=== PATIENT | male | born 1935 | race Caucasian/White ===

== ENCOUNTER 2016-10-01 10:34 | Outpatient (CLI) | payer MEDICARE, OTHER | END 2016-10-01 10:35 | disposition home or self-care (01) | DX: I10 Essential (primary) hypertension (principal) ==

== ENCOUNTER 2018-08-31 11:03 | Outpatient (CLI) | payer MEDICARE, OTHER | END 2018-08-31 11:04 | disposition home or self-care (01) | LOC: DI 11:03 | PROVIDERS: ATTEND Family Medicine | DX: R06.00 Dyspnea, unspecified (principal); I77.810 Thoracic aortic ectasia; R09.02 Hypoxemia; I10 Essential (primary) hypertension | CPT/HCPCS: 93306 ==

== ENCOUNTER 2018-10-07 10:43 | Outpatient (CLI) | payer MEDICARE, OTHER ==
--- NOTE | 2018-10-07 13:38 | XRAY Report ---
Reason: PULMONARY EMPHYSEMA,UNSPECIFIED EMPHYSEMA TYPE Procedure Date: 10/07/2018 Accession Number: [id number] / [id number] Procedure: XRN - Chest 2 View X-Ray CPT Code: 11785 FULL RESULT: EXAM: CHEST RADIOGRAPHY EXAM DATE: 10/07/2018 10:59 AM. CLINICAL HISTORY: PULMONARY EMPHYSEMA,UNSPECIFIED EMPHYSEMA TYPE. COMPARISON: None. TECHNIQUE: 2 views. FINDINGS: Lungs/Pleura: There is flattening of the hemidiaphragms. Lung volumes appear large. No discrete hyper lucent or cystic pulmonary lesions identified on chest radiograph. No definite pleural effusion. No focal consolidation. Mediastinum: Heart and mediastinal contours are unremarkable. Other: None. IMPRESSION: 1. Generalized pulmonary hyperinflation without focal airspace disease. RADIA
== END 2018-10-07 10:44 | disposition home or self-care (01) ==
LOC: DI.N 10:43
PROVIDERS: ATTEND Specialist
DX: J43.9 Emphysema, unspecified (principal)
CPT/HCPCS: 71046

== ENCOUNTER 2019-01-13 08:07 | Outpatient (CLI) | payer MEDICARE, OTHER ==
[2019-01-13 13:12] LABS: BASOPHILS # (AUTO) 0.1 10^3/uL (0.0-0.1); BASOPHILS % (AUTO) 1.1 %; EOSINOPHILS # (AUTO) 0.4 10^3/uL (0.0-0.7); EOSINOPHILS % (AUTO) 4.7 %; HGB - HEMOGLOBIN 15.3 g/dL (14.0-18.0); LYMPHOCYTES # (AUTO) 1.2 10^3/uL (1.5-3.5); MEAN CORPUSCULAR HEMOGLOBIN 32.4 pg (27.0-31.0); MEAN CORPUSCULAR HGB CONC 32.7 g/dL (32.0-36.0); MEAN CORPUSCULAR VOLUME 99.2 fL (80.0-94.0); MEAN PLATELET VOLUME 8.5 fL (7.4-11.4); MONOCYTES # (AUTO) 0.7 10^3/uL (0.0-1.0); MONOCYTES % (AUTO) 8.8 %; NEUTROPHILS # (AUTO) 5.3 10^3/uL (1.5-6.6); NEUTROPHILS % (AUTO) 69.4 %; PLT - PLATELET COUNT 252 10^3/uL (130-450); RED BLOOD COUNT 4.71 10^6/uL (4.70-6.10); WHITE BLOOD COUNT 7.6 x10^3/uL (4.8-10.8)
[2019-01-13 13:13] LABS: ALBUMIN 3.8 g/dL (3.2-5.5); ALBUMIN/GLOBULIN RATIO 1.3 (1.0-2.2); ALKALINE PHOSPHATASE 125 IU/L (42-121); ALT ALANINE AMINOTRANSFERASE 27 IU/L (10-60); AST ASPARTATE AMINOTRANSFERASE 31 IU/L (10-42); BILIRUBIN,TOTAL 0.9 mg/dL (0.2-1.0); BUN - BLOOD UREA NITROGEN 13 mg/dL (6-20); CALCIUM 9.1 mg/dL (8.5-10.3); CARBON DIOXIDE - CO2 29 mmol/L (21-32); CHLORIDE 100 mmol/L (101-111); CHOLESTEROL 164 mg/dL; CREATININE 0.7 mg/dL (0.6-1.2); GFR - MDRD 108 (>89); GLUCOSE 117 mg/dL (70-100); HB2 TOTAL 16.6 g/dL; HDL CHOLESTEROL 83 mg/dL; HEMOGLOBIN A1C 0.6 g/dL; HEMOGLOBIN A1C % 5.5 % (4.6-6.2); LDL CHOLESTEROL,CALCULATED 71 mg/dL; LDL/HDL RATIO 0.9 (<3.6); SODIUM 137 mmol/L (135-145); TOTAL PROTEIN 6.7 g/dL (6.7-8.2); URIC ACID 5.3 mg/dL (2.6-7.2); VLDL CHOLESTEROL 10 mg/dL
== END 2019-01-13 08:08 | disposition home or self-care (01) ==
LOC: LAB.WCP 08:07
PROVIDERS: ATTEND Family Medicine
DX: I10 Essential (primary) hypertension (principal); E66.9 Obesity, unspecified; F41.9 Anxiety disorder, unspecified; M10.9 Gout, unspecified; Z86.73 Personal history of transient ischemic attack (TIA), and cerebral infarction without residual deficits
CPT/HCPCS: 36415; 80053; 80061; 83036; 83721; 84443; 84550; 85025

== ENCOUNTER 2019-08-10 07:00 | Outpatient (CLI) | payer MEDICARE, OTHER ==
[2019-08-10 13:09] LABS: BASOPHILS # (AUTO) 0.1 10^3/uL (0.0-0.1); BASOPHILS % (AUTO) 1.2 %; EOSINOPHILS # (AUTO) 0.4 10^3/uL (0.0-0.7); EOSINOPHILS % (AUTO) 5.4 %; HGB - HEMOGLOBIN 15.3 g/dL (14.0-18.0); LYMPHOCYTES # (AUTO) 1.2 10^3/uL (1.5-3.5); LYMPHOCYTES % (AUTO) 14.8 %; MEAN CORPUSCULAR HEMOGLOBIN 32.1 pg (27.0-31.0); MEAN CORPUSCULAR HGB CONC 31.9 g/dL (32.0-36.0); MEAN CORPUSCULAR VOLUME 100.4 fL (80.0-94.0); MEAN PLATELET VOLUME 10.2 fL (7.4-11.4); MONOCYTES # (AUTO) 0.6 10^3/uL (0.0-1.0); MONOCYTES % (AUTO) 7.9 %; NEUTROPHILS # (AUTO) 5.6 10^3/uL (1.5-6.6); NEUTROPHILS % (AUTO) 70.2 %; PLT - PLATELET COUNT 241 10^3/uL (130-450); RED BLOOD COUNT 4.77 10^6/uL (4.70-6.10); RED CELL DISTRIBUTION WIDTH 13.9 % (12.0-15.0)
[2019-08-10 16:15] LABS: ALBUMIN/GLOBULIN RATIO 1.3 (1.0-2.2); CALCIUM 9.2 mg/dL (8.5-10.3); CREATININE 0.9 mg/dL (0.6-1.2)
[2019-08-10 17:30] LABS: HB2 TOTAL 15.6 g/dL; HEMOGLOBIN A1C 0.6 g/dL; HEMOGLOBIN A1C % 5.7 % (4.6-6.2)
== END 2019-08-10 23:59 | disposition home or self-care (01) ==
LOC: LAB.WCP 07:00
PROVIDERS: ATTEND Family Medicine
DX: I10 Essential (primary) hypertension (principal); Z86.39 Personal history of other endocrine, nutritional and metabolic disease; E66.9 Obesity, unspecified; F41.9 Anxiety disorder, unspecified
CPT/HCPCS: 36415; 80053; 83036; 84443; 85025

== ENCOUNTER 2020-11-06 08:00 | Outpatient (CLI) | payer MEDICARE, OTHER ==
[2020-11-06 12:09] LABS: ALBUMIN 3.5 g/dL (3.2-5.5); ALBUMIN/GLOBULIN RATIO 0.9 (1.0-2.2); ALKALINE PHOSPHATASE 128 IU/L (42-121); ALT ALANINE AMINOTRANSFERASE 26 IU/L (10-60); AST ASPARTATE AMINOTRANSFERASE 26 IU/L (10-42); BILIRUBIN,TOTAL 0.9 mg/dL (0.2-1.0); BUN - BLOOD UREA NITROGEN 18 mg/dL (6-20); CALCIUM 9.7 mg/dL (8.5-10.3); CARBON DIOXIDE - CO2 30 mmol/L (21-32); CHLORIDE 98 mmol/L (101-111); CHOL/HDL RATIO 2.7 (<5.0); CHOLESTEROL 162 mg/dL; CREATININE 0.9 mg/dL (0.6-1.2); GLUCOSE 112 mg/dL (70-100); HDL CHOLESTEROL 61 mg/dL; LDL CHOLESTEROL,CALCULATED 89 mg/dL; LDL/HDL RATIO 1.5 (<3.6); TOTAL PROTEIN 7.2 g/dL (6.7-8.2); VLDL CHOLESTEROL 12 mg/dL
[2020-11-06 12:28] LABS: BASOPHILS # (AUTO) 0.1 10^3/uL (0.0-0.1); BASOPHILS % (AUTO) 1.4 %; EOSINOPHILS # (AUTO) 0.3 10^3/uL (0.0-0.7); EOSINOPHILS % (AUTO) 3.8 %; LYMPHOCYTES # (AUTO) 1.3 10^3/uL (1.5-3.5); LYMPHOCYTES % (AUTO) 14.7 %; MEAN CORPUSCULAR HEMOGLOBIN 31.5 pg (27.0-31.0); MEAN CORPUSCULAR HGB CONC 31.8 g/dL (32.0-36.0); MEAN CORPUSCULAR VOLUME 98.9 fL (80.0-94.0); MEAN PLATELET VOLUME 9.6 fL (7.4-11.4); MONOCYTES # (AUTO) 0.7 10^3/uL (0.0-1.0); MONOCYTES % (AUTO) 8.1 %; NEUTROPHILS # (AUTO) 6.2 10^3/uL (1.5-6.6); NEUTROPHILS % (AUTO) 71.1 %; PLT - PLATELET COUNT 422 10^3/uL (130-450); RED BLOOD COUNT 4.76 10^6/uL (4.70-6.10); RED CELL DISTRIBUTION WIDTH 13.6 % (12.0-15.0); WHITE BLOOD COUNT 8.8 x10^3/uL (4.8-10.8)
== END 2020-11-06 23:59 | disposition home or self-care (01) ==
LOC: LAB.WCP 08:00
PROVIDERS: ATTEND Internal Medicine
DX: E66.9 Obesity, unspecified (principal); F41.9 Anxiety disorder, unspecified; R09.02 Hypoxemia; Z86.39 Personal history of other endocrine, nutritional and metabolic disease
CPT/HCPCS: 36415; 80053; 80061; 83721; 84443; 85025

== ENCOUNTER 2020-12-27 10:03 | Outpatient (CLI) | payer MEDICARE, OTHER ==
--- NOTE | 2020-12-27 11:07 | Ultrasound Report ---
PROCEDURE: Aorta Screening INDICATIONS: HIST OF SMOKING TECHNIQUE: Real time scanning was performed of the aorta and iliac arteries, with image documentatio n. COMPARISON: No imaging studies of the aorta are available. FINDINGS: Aorta: Proximal aortic diameter measures 2.9 x 2.9 cm. Mid-aorta measures 2.5 x 2.6 cm. Distal aor tic diameter is 5.9 x 6.2 cm. Distal abdominal aortic aneurysm margin is irregular and demonstrates turbulent flow. It extends for length of about 8.4 cm. No definite mural thrombus. Iliac arteries: Right common iliac artery measures 1.5 x 1.3 cm. Left common iliac artery measures 1.6 x 1.4 cm. Incidental note made of large left lower pole simple renal cyst measuring up to 14.2. IMPRESSION: 1. Large fusiform distal abdominal aortic aneurysm to the level of the bifurcation. No definite mural thrombus. Further evaluation with CTA or MRA imaging, and vascular surgery consultation is recommend ed. Reviewed by: Chanda Gabriel MD on 12/27/2020 10:05 AM MYRIAM Approved by: Chanda Gabriel MD on 12/27/2020 10:05 AM MYRIAM Station ID: [id number]
== END 2020-12-27 10:04 | disposition home or self-care (01) ==
LOC: DI 10:03
PROVIDERS: ATTEND Internal Medicine
DX: Z13.6 Encounter for screening for cardiovascular disorders (principal); I71.4 Abdominal aortic aneurysm, without rupture; Z87.891 Personal history of nicotine dependence

== ENCOUNTER 2021-01-04 13:57 | Outpatient (CLI) | payer MEDICARE, OTHER ==
[2021-01-04] MEDS ORDERED: IOPAMIDOL-300 100 ML VIAL ONE (14:23)
[2021-01-04 14:53] LABS: CALCIUM 9.2 mg/dL (8.5-10.3); CREATININE 0.9 mg/dL (0.6-1.2); POTASSIUM 3.7 mmol/L (3.5-5.0)
[2021-01-04] MEDS ORDERED: IOPAMIDOL-300 100 ML VIAL IVP ONE (17:13)
--- NOTE | 2021-01-05 00:05 | CT Report ---
PROCEDURE: ANGIO ABD RUNOFF W/WO - B/L INDICATIONS: AAA CONTRAST: IV CONTRAST: Isovue 300 ml: 125 PO CONTRAST: *NO PO CONTRAST TECHNIQUE: After the administration of intravenous contrast, 2 and 5 mm sections acquired from T12 to the feet, with optional delayed image acquisition from the knees to the feet. 3-dimensional maximum intensity projection (MIP) coronal and sagittal reformats, and/or 3-dimensional volume rendering reformatting w as then performed. For radiation dose reduction, the following was used: automated exposure control , adjustment of mA and/or kV according to patient size. COMPARISON: Abdominal ultrasound 12/27/2020. FINDINGS: Image quality: Excellent. Extravascular tissues: Lung bases are clear. Calcified right hilar lymph nodes. Heart size is promin ent. Liver and spleen are normal in size. Possible hepatic steatosis. Punctate calcification in the left l obe liver. Gallbladder is unremarkable. Biliary system is non dilated. Pancreas enhances normally. Left adrenal nodule measuring 1.9 cm. Exophytic lobular right mid kidney lesion measuring of 4.8 x 2 .8 cm, (/39). This lesion appears solid. Large inferior pole left renal cyst measuring 13.8 cm. This measures approximately 30 Hounsfield units. Additional renal cysts bilaterally. Non opacified bowel loops demonstrate normal wall thickness and enhancement. No free fluid or air. No retroperitoneal or mesenteric adenopathy. No ventral hernias. Bladder wall thickness is normal. Hydrocele. Fat-containing left inguinal hernia. No adenopathy. No suspicious bony lesions. Lumbar spine DDD. No vertebral body compression fractures. Abdominal aorta: Infrarenal abdominal aortic fusiform aneurysm measuring 5.9 cm transverse, (12/42) and 5.7 cm AP, (13/66). Moderate calcified plaque in the abdominal aorta and circumferential plaque i n the iliac arteries. No iliac artery aneurysm. No dissection. Proximal SMA athetotic plaque. Promine nt plaque in the proximal renal arteries. Right lower extremity: Mild stenosis in the EMAIL MARKETING SPECIALIST. Profunda is patent. Severe stenosis in the distal S FA. Severe stenosis in the popliteal artery. Severe stenosis at the tibioperitoneal trunk. Peroneal a rtery is attenuated. There appears to be runoff in the NIMA and ROOF PANEL HANGER. Subcutaneous edema about the righ t knee and thigh. Left lower extremity: Mild stenosis in the EMAIL MARKETING SPECIALIST. Profunda is patent. Moderate stenosis in the mid SFA . Severe stenosis in the distal SFA. Severe stenosis in the popliteal artery. Severe stenosis in the NIMA. Paranasal artery is attenuated. There appears to be runoff in the NIMA and ROOF PANEL HANGER. IMPRESSION: 1. Infrarenal AAA measuring 5.9 cm. -Interventional radiology or vascular surgery consultation is recommended. 2. Advanced peripheral arterial disease with multiple areas of severe stenosis. Asymmetric soft tissu e swelling in the right thigh and knee. Clinical significance of this finding is uncertain. 3. Suspect solid right renal mass measuring 4.8 cm. This could represent renal cell carcinoma. Additi onal indeterminate renal cystic lesions. -Recommend further characterization with MRI renal protocol or CT. 4. Small indeterminate left adrenal nodule. Reviewed by: Waldo Ramirez MD on 01/05/2021 12:03 AM PDT Approved by: Waldo Ramirez MD on 01/05/2021 12:03 AM PDT Station ID: [id number]
== END 2021-01-04 13:58 | disposition home or self-care (01) ==
LOC: LAB 13:57 → DI 13:58
PROVIDERS: ATTEND Internal Medicine
DX: I71.4 Abdominal aortic aneurysm, without rupture (principal); I73.9 Peripheral vascular disease, unspecified; E27.9 Disorder of adrenal gland, unspecified
CPT/HCPCS: 36415; 75635; 80048; Q9967

== ENCOUNTER 2021-03-08 07:38 | Outpatient (CLI) | payer MEDICARE, OTHER | END 2021-03-08 07:39 | disposition home or self-care (01) | LOC: DI 07:38 | PROVIDERS: ATTEND Surgery Vascular Surgery | DX: I71.4 Abdominal aortic aneurysm, without rupture (principal); I48.91 Unspecified atrial fibrillation; I87.8 Other specified disorders of veins; I11.9 Hypertensive heart disease without heart failure | CPT/HCPCS: 93306 ==

== ENCOUNTER 2021-09-19 00:05 | Inpatient (IN) | payer MEDICARE, OTHER ==
[2021-09-19] MEDS ORDERED: ALBUTEROL NEB 2.5 MG/3 ML INH STA (00:12)
[2021-09-19] MEDS ORDERED: ACETAMINOPHEN 325 MG TABLET PO STA (00:13)
[2021-09-19] MEDS ORDERED: CEFEPIME 2 GM in SODIUM CHLORIDE 0.9% MINIBAG 100 ML IV STA (00:13)
[2021-09-19] MEDS ORDERED: VANCOMYCIN INJ 1.25 GM in SODIUM CHLORIDE 0.9% 250 ML IV STA (00:13)
[2021-09-19] MEDS ORDERED: ALBUTEROL NEB 2.5 MG/3 ML INH ONE (00:20)
--- NOTE | 2021-09-19 00:22 | ED Physician Documentation ---
History of Present Illness - Stated complaint Stated Complaint: DIFF BREATHING - Chief complaint Chief Complaint: Resp - History obtained from History obtained from: Patient, EMS - Additonal information Additional information: 86yM with pmh copd, dnr/dni, asymptomatic AAA, +smoker, p/w SOA, fever/chills, and weakness over past few days with acute worsening soa today prompting ems call. patient took 2 albuterol treatments at home without relief. On EMS arrival: Hypoxic to 70s on RA in the field, improving to high 90s on NRB. 2 duonebs en route. No recent hospitalizations. denies CP, nausea, diaphoresis, diarrhea, abd pain. +productive cough. no hemoptysis Review of Systems Ten Systems: 10 systems reviewed and negative Constitutional: reports: Fever, Chills, Myalgias, Fatigue Cardiac: denies: Chest pain / pressure Respiratory: reports: Dyspnea, Cough GI: denies: Abdominal Pain, Nausea, Vomiting, Diarrhea : denies: Dysuria Skin: denies: Rash PD PAST MEDICAL HISTORY - Past Medical History Respiratory: COPD Neuro: CVA - Present Medications Home Medications: Ambulatory Orders Medication Instructions Recorded Confirmed Albuterol 2.5 mg INH Q4H PRN 12/28/20 09/19/21 Alfuzosin HCl [Uroxatral] 10 mg PO DAILY 12/28/20 09/19/21 Lisinopril [Zestril] 20 mg PO BID 12/28/20 09/19/21 Meloxicam [Mobic] 15 mg PO DAILY 12/28/20 09/19/21 Mometasone/Formoterol [Dulera 100 4 puffs IH DAILY 12/28/20 09/19/21 Mcg-5 Mcg Inhaler] [place]-3/Dha/Epa/Fish Oil [Fish Oil 1 cap PO DAILY 12/28/20 09/19/21 1,000 mg Softgel] Sennosides/Docusate Sodium [Stool 250 mg PO BID 12/28/20 09/19/21 Softener-Laxative Tablet] Tiotropium [place] [Spiriva] 1 cap PO DAILY 12/28/20 09/19/21 allopurinoL [Zyloprim] 300 mg PO DAILY 12/28/20 09/19/21 cloNIDine [Catapres] 0.1 mg PO BID 12/28/20 09/19/21 - Allergies Allergies/Adverse Reactions: Allergies Allergy/AdvReac Type Severity Reaction Status Date / Time Penicillins Allergy Unknown Verified 09/19/21 00:15 shellfish derived Allergy Unknown Verified 09/19/21 00:15 PD ED PE NORMAL - Vitals Vital signs reviewed: Yes - General General: Alert and oriented X 3, Other (mild respiratory distress. elderly appearing) - HEENT HEENT: Atraumatic, PERRL, EOMI, Moist mucous membranes, Pharynx benign - Neck Neck: Supple, no meningeal sign - Cardiac Cardiac: Other (tachycardic rate, irregular rhythm) - Respiratory Respiratory: Other (BL coarse breath sounds. L basilar rhonchi and crackles) - Abdomen Abdomen: Non tender, Other (distended abdomen) - Derm Derm: Normal color, Warm and dry - Extremities Extremities: No deformity - Neuro Neuro: No motor deficit, No sensory deficit - Psych Psych: Normal mood, Normal affect Results - Vitals Vitals: Vital Signs - 24 hr 09/19/21 09/19/21 00:06 00:20 Temperature 38.2 C H Heart Rate 108 H 106 H Respiratory 20 28 H Rate Blood Pressure 135/71 H O2 Saturation 97 Oxygen O2 Source Non-rebreather mask Oxygen Flow Rate 15 - EKG (time done) 0018 Rate: Rate (enter#) (113) Rhythm: Other (irregular rhythm, multiple p waves with varying morphologies c/w MAT) QRS: Normal Ischemia: Normal ST segments - Labs Labs: Laboratory Tests 09/19/21 09/19/21 09/19/21 00:32 00:32 00:32 WBC 15.2 H RBC 4.63 L Hgb 14.9 Hct 46.0 MCV 99.4 H MCH 32.2 H MCHC 32.4 RDW 14.6 Plt Count 217 MPV 10.4 Neut # (Auto) 12.9 H Lymph # (Auto) 0.7 L Rabun # (Auto) 1.5 H Eos # (Auto) 0.0 Baso # (Auto) 0.1 Absolute Nucleated RBC 0.00 Nucleated RBC % 0.0 VBG pH 7.341 VBG pCO2 53.7 H VBG pO2 43.5 VBG HCO3 28.4 H VBG Total CO2 30.0 H VBG O2 Saturation 77.1 VBG Base Excess 1.4 Sodium 136 Potassium 3.9 Chloride 97 L Carbon Dioxide 29 Anion Gap 10.0 BUN 23 H Creatinine 0.9 Estimated GFR (MDRD) 80 L Glucose 147 H Lactic Acid Calcium 8.8 Total Bilirubin 1.1 H AST 32 ALT 44 Alkaline Phosphatase 104 Total Protein 6.8 Albumin 3.7 Globulin 3.1 Albumin/Globulin Ratio 1.2 Lipase 19 L 09/19/21 00:32 WBC RBC Hgb Hct MCV MCH MCHC RDW Plt Count MPV Neut # (Auto) Lymph # (Auto) Rabun # (Auto) Eos # (Auto) Baso # (Auto) Absolute Nucleated RBC Nucleated RBC % VBG pH VBG pCO2 VBG pO2 VBG HCO3 VBG Total CO2 VBG O2 Saturation VBG Base Excess Sodium Potassium Chloride Carbon Dioxide Anion Gap BUN Creatinine Estimated GFR (MDRD) Glucose Lactic Acid 1.0 Calcium Total Bilirubin AST ALT Alkaline Phosphatase Total Protein Albumin Globulin Albumin/Globulin Ratio Lipase PD MEDICAL DECISION MAKING - ED course ED course: 86yM presents to ED with sepsis 2/2 L sided pneumonia. no recent hospitalization therefore will treat empirically for CAP. EKG irregular, suspect MAT. family reports no formal diagnosis of afib or cardiac arrhythmia in the past. On monitor, patient has p waves with multiple morphologies and irregular rhythm c/w MAT. 1am - Patient with o2 sat 94% on 10L o2. BL wheezing improved s/p 3 nebulizer treatments. still with some mild tachycardia. patient states his SOA is subjectively improved.
[2021-09-19] MEDS ORDERED: AZITHROMYCIN INJ 500 MG in SODIUM CHLORIDE 0.9% 250 ML IV STA (00:24)
[2021-09-19] MEDS ORDERED: SODIUM CHLORIDE 0.9% 1,000 ML IV STA (00:24)
[2021-09-19] MEDS ORDERED: cefTRIAXone 1 GM in SODIUM CHLORIDE 0.9% MINIBAG 100 ML IV STA (00:24)
[2021-09-19] MEDS ORDERED: SODIUM CHLORIDE 0.9% 500 ML IV STA (00:34)
[2021-09-19] MEDS ORDERED: cefTRIAXone 1 GM VIAL ONE (00:35)
[2021-09-19 00:45] LABS: BASOPHILS # (AUTO) 0.1 10^3/uL (0.0-0.1); BASOPHILS % (AUTO) 0.5 %; EOSINOPHILS % (AUTO) 0.1 %; HGB - HEMOGLOBIN 14.9 g/dL (14.0-18.0); LYMPHOCYTES # (AUTO) 0.7 10^3/uL (1.5-3.5); LYMPHOCYTES % (AUTO) 4.6 %; MEAN CORPUSCULAR HEMOGLOBIN 32.2 pg (27.0-31.0); MEAN CORPUSCULAR HGB CONC 32.4 g/dL (32.0-36.0); MEAN CORPUSCULAR VOLUME 99.4 fL (80.0-94.0); MEAN PLATELET VOLUME 10.4 fL (7.4-11.4); MONOCYTES # (AUTO) 1.5 10^3/uL (0.0-1.0); MONOCYTES % (AUTO) 9.8 %; NEUTROPHILS # (AUTO) 12.9 10^3/uL (1.5-6.6); NEUTROPHILS % (AUTO) 84.5 %; PLT - PLATELET COUNT 217 10^3/uL (130-450); RED BLOOD COUNT 4.63 10^6/uL (4.70-6.10); RED CELL DISTRIBUTION WIDTH 14.6 % (12.0-15.0); WHITE BLOOD COUNT 15.2 x10^3/uL (4.8-10.8)
[2021-09-19 00:46] LABS: VBG BASE EXCESS 1.4 mmol/L (-2 - +2); VBG HCO3 28.4 mmol/L (23-28); VBG OXYGEN SATURATION 77.1 % (60-80); VBG PCO2 53.7 mmHg (41-51); VBG PH 7.341 (7.31-7.41); VBG PO2 43.5 mmHg (25-47)
--- NOTE | 2021-09-19 00:51 | XRAY Report ---
PROCEDURE: Chest 1 View X-Ray INDICATIONS: Chest Pain TECHNIQUE: One view of the chest was acquired. COMPARISON: Chest x-ray 10/07/2018 FINDINGS: Surgical changes and devices: None. Lungs and pleura: There is blunting of the costophrenic angles bilaterally, left greater than right. Left lung base demonstrates areas of increased opacity. Mediastinum: Mediastinal contours appear normal. Heart size is normal. Bones and chest wall: No suspicious bony lesions. Overlying soft tissues appear unremarkable. IMPRESSION: Costophrenic angle blunting, left greater than right suggestive of trace effusions most notable on th e left. Areas of increased opacity are noted within the left base which can represent dependent fluid versus developing pneumonia and/or atelectasis. Reviewed by: Yuly Lopez MD on 09/19/2021 12:50 AM PST Approved by: Yuly Lopez MD on 09/19/2021 12:50 AM PST Station ID: [id number]
[2021-09-19 00:57] LABS: ALBUMIN 3.7 g/dL (3.2-5.5); ALBUMIN/GLOBULIN RATIO 1.2 (1.0-2.2); BILIRUBIN,TOTAL 1.1 mg/dL (0.2-1.0); CALCIUM 8.8 mg/dL (8.5-10.3); CREATININE 0.9 mg/dL (0.6-1.2); POTASSIUM 3.9 mmol/L (3.5-5.0); TOTAL PROTEIN 6.8 g/dL (6.7-8.2)
[2021-09-19] MEDS ORDERED: methylPREDNISolone SUCCINATE 125 MG/2 ML VIAL IVP STA (01:06)
[2021-09-19 01:45] LABS: B. PARAPERTUSSIS- RESP PCR PAN NOT DETECTED; B. PERTUSSIS- RESP PCR PANEL NOT DETECTED; C. PNEUMONIAE- RESP PCR PANEL NOT DETECTED; CORONAVIRUS 229E-RESP PCR NOT DETECTED; CORONAVIRUS HKU1-RESP PCR NOT DETECTED; CORONAVIRUS NL63-RESP PCR NOT DETECTED; CORONAVIRUS OC43-RESP PCR NOT DETECTED; HUMAN METAPNEUMOVIRUS NOT DETECTED; INFLUENZA A- RESP PCR PANEL NOT DETECTED; INFLUENZA B - RESP PCR PANEL NOT DETECTED; M. PNEUMONIAE- RESP PCR PANEL NOT DETECTED; PARAINFLUENZA VIRUS 1 NOT DETECTED; PARAINFLUENZA VIRUS 2 NOT DETECTED; PARAINFLUENZA VIRUS 3 DETECTED; PARAINFLUENZA VIRUS 4 NOT DETECTED; RHINOVIRUS/ENTEROVIRUS NOT DETECTED; RSV- RESP PCR PANEL NOT DETECTED; SARS-CoV-2 -RESP PCR PANEL NOT DETECTED
[2021-09-19] MEDS ORDERED: oxyCODONE 5 MG TABLET PO PRN ×2 (01:54→02:39)
[2021-09-19] MEDS ORDERED: MORPHINE 2 MG/ML CARPUJECT IVP PRN ×4 (01:54→09:07)
[2021-09-19] MEDS ORDERED: ONDANSETRON 4 MG/2 ML VIAL IVP PRN ×2 (01:54→02:39)
[2021-09-19] MEDS ORDERED: SODIUM CHLORIDE FLUSH 0.9% 10 ML SYRINGE IVP PRN (01:54)
[2021-09-19] MEDS ORDERED: ACETAMINOPHEN 325 MG TABLET PO PRN ×3 (01:54→09:06)
[2021-09-19] MEDS ORDERED: methylPREDNISolone SUCCINATE 40 MG/ML VIAL IVP SCH (02:00)
[2021-09-19] MEDS ORDERED: IPRATROPIUM/ALBUTEROL 3 ML NEB INH PRN (02:03)
--- NOTE | 2021-09-19 02:05 | HISTORY & PHYSICAL EXAMINATION ---
Chief Complaint - Chief Complaint Chief Complaint: dyspnea, hypoxia, productive cough History of Present Illness - Admitted From Admitted From:: [facility] ED - History Obtained From Records Reviewed: yes History obtained from: patient - History of Present Illness HPI Comment/Other: Patient is an 86-year-old male with history significant for arthritis, AAA, BPH, gout, hypertension and COPD who presented to the ED with difficulty in breathing. His symptoms have been going on intermittently for the past month. Today he was unable to walk from the living room to the bathroom and back. As a result of his significant dyspnea he is daughter called EMS. Upon arrival his oxygen saturation was noted to be in the 70s on room air. He does not use oxygen at home. He also had a productive cough. In the ED he was noted to be tachypneic with respiratory rate in the 30s. He had a fever of 38.2 C. His white blood cell count was 15.2. PCO2 on VBG was 53. Chest x-ray showed costophrenic blunting and opacities concerning for pulmonary edema and/or pneumonia. As a result of this findings he was presented for admission for further management At bedside he denied chest pain but reported abdominal pain/heartburn. He denied nausea or vomiting. He appears very disheveled with 3+ lower extremity edema and a protuberant abdomen. History - Past Medical History Respiratory: reports: COPD Neuro: reports: CVA : reports: Benign prostate hypertrophy Musculoskeletal: reports: Osteoarthritis, Gout - Past Surgical History General: reports: Other (Umbilical and inguinal hernia repair pain) Ortho: reports: Other (Left knee scope) /CAD APPLICATION SUPPORT SPECIALIST: reports: Other (Vasectomy) - Family & Social History Family History Comment/Other: Patient denies any significant family history Social History Notes: He lives at home with his daughter. He has been smoking cigarettes since the age of 19. He is currently down to 5 cigarettes daily. He consumes alcohol regularly. Mostly beer. He denies any recreational substance use. He gets around using a walker. - POLST Patient has POLST: No POLST Status: DNR Meds/Allgy - Home Medications Home Medications: Ambulatory Orders Medication Instructions Recorded Confirmed Albuterol 2.5 mg INH Q4H PRN 12/28/20 09/19/21 Alfuzosin HCl [Uroxatral] 10 mg PO DAILY 12/28/20 09/19/21 Lisinopril [Zestril] 20 mg PO BID 12/28/20 09/19/21 Meloxicam [Mobic] 15 mg PO DAILY 12/28/20 09/19/21 Mometasone/Formoterol [Dulera 100 4 puffs IH DAILY 12/28/20 09/19/21 Mcg-5 Mcg Inhaler] [place]-3/Dha/Epa/Fish Oil [Fish Oil 1 cap PO DAILY 12/28/20 09/19/21 1,000 mg Softgel] Sennosides/Docusate Sodium [Stool 250 mg PO BID 12/28/20 09/19/21 Softener-Laxative Tablet] Tiotropium [place] [Spiriva] 1 cap PO DAILY 12/28/20 09/19/21 allopurinoL [Zyloprim] 300 mg PO DAILY 12/28/20 09/19/21 cloNIDine [Catapres] 0.1 mg PO BID 12/28/20 09/19/21 - Allergies Allergies/Adverse Reactions: Allergies Allergy/AdvReac Type Severity Reaction Status Date / Time Penicillins Allergy Unknown Verified 09/19/21 00:15 shellfish derived Allergy Unknown Verified 09/19/21 00:15 Review of Systems - Constitutional Constitutional: reports: Fever. denies: Fatigue - Eyes Eyes: denies: Pain, Dipolpia - Ears, Nose & Throat Ears, Nose & Throat: denies: Ear pain, Sore throat - Cardiovascular Cariovascular: reports: Palpitations, Exertional dyspnea. denies: Chest pain, Lightheadedness, Syncope - Respiratory Respiratory: reports: Cough, Sputum production, Wheezing, SOB at rest, SOB with exertion - Gastrointestinal Gastrointestinal: reports: Abdominal distention, Reflux/heartburn. denies: Abdominal pain, Constipation, Nausea, Vomiting - Genitourinary Genitourinary: denies: Dysuria, Frequency, Urgency - Musculoskeletal Musculoskeletal: denies: Muscle pain, Back pain - Integumentary Integumentary: reports: Other (Multiple skin tags noted on face. Face appears slightly ashen) - Neurological Neurological: denies: General weakness, Focal weakness, Headache - Psychiatric Psychiatric: denies: Depression, Anxiety - Endocrine Endocrine: denies: Polyuria, Polydypsia - Hematologic/Lymphatic Hematologic/Lymphatic: denies: Anemia, Bruising, Petechiae Prior Level of Functionality: Patient is independent of activities of daily living. He gets around using a walker. Exam - Vital Signs Vital Signs: Vital Signs x48h Temp Pulse Resp BP Pulse Ox 09/19/21 01:30 109 H 31 H 98/46 L 93 09/19/21 01:12 113 H 26 H 100/56 L 93 09/19/21 01:00 119 H 31 H 104/53 L 93 09/19/21 00:30 114 H 26 H 135/71 H 94 09/19/21 00:20 106 H 28 H 09/19/21 00:06 38.2 C H 108 H 20 135/71 H 97 - Physical Exam General Appearance: positive: Alert, Moderate distress (Respiratory distress), Other (Disheveled. Face appears ashen) Eyes Bilateral: positive: PERRL, EOMI ENT: positive: No signs of dehydration Neck: positive: No JVD, Trachea midline Respiratory: positive: Chest non-tender, Wheezes Cardiovascular: positive: Irregularly irregular, Tachycardia Abdomen: positive: Non-tender, Nml bowel sounds, Other (protuberant abdomen). negative: Guarding, Rebound Back: positive: Nml inspection Skin: positive: No rash, Warm, Other (Skin tags noted on face and neck. Face appears ashen). negative: Color nml Extremities: positive: Non-tender, Pedal edema (3+) Neurologic/Psychiatric: positive: Oriented x3, Motor nml, Mood/affect nml Conclusion/Plan - Problem List (1) COPD exacerbation Conclusion/Plan: Patient is currently on oxygen mask at 10 L. Overall he reports slight improvement in his breathing compared to prior to admission. If needed will switch patient to high flow nasal cannula or BiPAP. Budesonide and Perforomist twice daily. Solu-Medrol 80 mg IV 3 times daily. DuoNeb every 4 hours as needed. Patient was admitted to the ICU for closer monitoring. (2) Community acquired pneumonia Conclusion/Plan: White blood cell count was 15. Chest x-ray showed opacities. Temperature was 38.2 C Blood cultures drawn. Rocephin and azithromycin initiated. We will continue. Tylenol ordered every 4 hours as needed for fever. (3) AAA (abdominal aortic aneurysm) Conclusion/Plan: This was noted to be 5.9 x 6.2 cm on an ultrasound done in December 2020. This was ordered by the patient's primary physician Dr. Brent Posada. He was seen by vascular surgeon in the outpatient setting. He declined any intervention. (4) Hypertension Conclusion/Plan: He normally takes clonidine and lisinopril. However patient's systolic blood pressure currently is between 90 and low 100. As a result we will hold all antihypertensives including alfuzosin which he takes for BPH. (5) BPH (benign prostatic hyperplasia) Conclusion/Plan: Alfuzosin currently on hold. (6) Edema of both lower extremities Conclusion/Plan: Chronic. However appears significant currently. Patient has 3+ pitting edema. Chest x-ray also showed blunting of the costophrenic angles. BNP ordered. If significantly elevated will administer Lasix. However will exercise caution Due to soft blood pressures. - Lab Results Fish Bones: 09/19/21 04:21 09/19/21 04:21 Core Measures - Anticipated LOS I expect patient to be DC'd or transferred within 96 hours.: Yes - DVT/VTE - Prophylaxis VTE/DVT Device ordered at admit?: Yes VTE/DVT Prophylaxis med ordered at admit?: Yes
[2021-09-19] MEDS ORDERED: cefTRIAXone 1 GM in SODIUM CHLORIDE 0.9% MINIBAG 100 ML IV SCH (02:39)
[2021-09-19] MEDS: methylPREDNISolone SUCCINATE 40 MG/ML VIAL IVP SCH ×3 (02:57→18:18)
[2021-09-19 04:52] LABS: BASOPHILS # (AUTO) 0.1 10^3/uL (0.0-0.1); BASOPHILS % (AUTO) 0.5 %; EOSINOPHILS # (AUTO) 0.2 10^3/uL (0.0-0.7); HCT - HEMATOCRIT 44.6 % (42.0-52.0); HGB - HEMOGLOBIN 14.1 g/dL (14.0-18.0); LYMPHOCYTES # (AUTO) 0.3 10^3/uL (1.5-3.5); LYMPHOCYTES % (AUTO) 1.7 %; MEAN CORPUSCULAR HEMOGLOBIN 31.8 pg (27.0-31.0); MEAN CORPUSCULAR HGB CONC 31.6 g/dL (32.0-36.0); MEAN CORPUSCULAR VOLUME 100.5 fL (80.0-94.0); MEAN PLATELET VOLUME 10.6 fL (7.4-11.4); MONOCYTES # (AUTO) 0.7 10^3/uL (0.0-1.0); MONOCYTES % (AUTO) 4.4 %; NEUTROPHILS # (AUTO) 14.5 10^3/uL (1.5-6.6); NEUTROPHILS % (AUTO) 91.8 %; PLT - PLATELET COUNT 216 10^3/uL (130-450); RED BLOOD COUNT 4.44 10^6/uL (4.70-6.10); RED CELL DISTRIBUTION WIDTH 14.6 % (12.0-15.0); WHITE BLOOD COUNT 15.8 x10^3/uL (4.8-10.8)
[2021-09-19 04:59] LABS: CALCIUM 8.5 mg/dL (8.5-10.3); POTASSIUM 3.8 mmol/L (3.5-5.0)
[2021-09-19] MEDS: IPRATROPIUM/ALBUTEROL 3 ML NEB INH PRN ×2 (06:29→11:57)
[2021-09-19] MEDS: FORMOTEROL FUMARATE NEB 20 MCG/2 ML INH SCH ×2 (06:30→20:29)
[2021-09-19] MEDS: BUDESONIDE 0.5 MG/2 ML NEB INH SCH ×2 (06:30→20:29)
[2021-09-19] MEDS ORDERED: BUDESONIDE 0.5 MG/2 ML NEB INH SCH (07:00)
[2021-09-19] MEDS ORDERED: FORMOTEROL FUMARATE NEB 20 MCG/2 ML INH SCH (07:00)
[2021-09-19] MEDS ORDERED: INSULIN ASPART 300 UNIT/3 ML PEN SUBQ SCH (08:00)
[2021-09-19] MEDS ORDERED: POTASSIUM CHLORIDE 20 MEQ TABLET PO ONE (08:00)
[2021-09-19] MEDS: INSULIN ASPART 300 UNIT/3 ML PEN SUBQ SCH ×4 (08:35→20:56)
[2021-09-19] MEDS: SODIUM CHLORIDE FLUSH 0.9% 10 ML SYRINGE IVP SCH ×2 (08:55→17:16)
[2021-09-19] MEDS ORDERED: SODIUM CHLORIDE FLUSH 0.9% 10 ML SYRINGE IVP SCH (09:00)
[2021-09-19] MEDS: allopurinoL 100 MG TABLET PO SCH (10:53)
[2021-09-19] MEDS: lisinopriL 20 MG TABLET PO SCH ×2 (10:53→20:56)
[2021-09-19] MEDS: TAMSULOSIN 0.4 MG CAPSULE PO SCH (10:53)
[2021-09-19] MEDS: DOCUSATE SODIUM 250 MG CAPSULE PO SCH (10:55)
[2021-09-19] MEDS: polyethylene glycoL 3350 17 GM PACKET PO SCH (10:55)
[2021-09-19] MEDS: guaiFENesin 600 MG TABLET PO SCH ×2 (12:35→20:56)
[2021-09-19] MEDS: AZITHROMYCIN INJ 500 MG in SODIUM CHLORIDE 0.9% 250 ML IV SCH (21:33)
[2021-09-20] MEDS: methylPREDNISolone SUCCINATE 40 MG/ML VIAL IVP SCH ×2 (01:36→10:54)
[2021-09-20] MEDS: SODIUM CHLORIDE FLUSH 0.9% 10 ML SYRINGE IVP SCH ×3 (01:36→17:03)
[2021-09-20 05:29] LABS: BASOPHILS % (AUTO) 0.1 %; HGB - HEMOGLOBIN 14.2 g/dL (14.0-18.0); LYMPHOCYTES # (AUTO) 0.6 10^3/uL (1.5-3.5); LYMPHOCYTES % (AUTO) 3.7 %; MEAN CORPUSCULAR HEMOGLOBIN 32.2 pg (27.0-31.0); MEAN CORPUSCULAR HGB CONC 31.6 g/dL (32.0-36.0); MEAN PLATELET VOLUME 10.4 fL (7.4-11.4); MONOCYTES # (AUTO) 0.6 10^3/uL (0.0-1.0); MONOCYTES % (AUTO) 3.5 %; NEUTROPHILS # (AUTO) 14.9 10^3/uL (1.5-6.6); PLT - PLATELET COUNT 201 10^3/uL (130-450); RED BLOOD COUNT 4.41 10^6/uL (4.70-6.10); RED CELL DISTRIBUTION WIDTH 14.4 % (12.0-15.0); WHITE BLOOD COUNT 16.2 x10^3/uL (4.8-10.8)
[2021-09-20 05:35] LABS: CALCIUM 8.6 mg/dL (8.5-10.3); CREATININE 0.8 mg/dL (0.6-1.2); POTASSIUM 4.6 mmol/L (3.5-5.0)
[2021-09-20] MEDS: INSULIN ASPART 300 UNIT/3 ML PEN SUBQ SCH ×4 (07:52→21:06)
[2021-09-20] MEDS: BUDESONIDE 0.5 MG/2 ML NEB INH SCH ×2 (07:55→19:30)
[2021-09-20] MEDS: IPRATROPIUM/ALBUTEROL 3 ML NEB INH PRN ×2 (07:55→19:30)
[2021-09-20] MEDS: FORMOTEROL FUMARATE NEB 20 MCG/2 ML INH SCH ×2 (07:55→19:30)
[2021-09-20] MEDS: guaiFENesin 600 MG TABLET PO SCH ×2 (09:04→21:02)
[2021-09-20] MEDS: allopurinoL 100 MG TABLET PO SCH (09:04)
[2021-09-20] MEDS: polyethylene glycoL 3350 17 GM PACKET PO SCH (09:13)
[2021-09-20] MEDS: lisinopriL 20 MG TABLET PO SCH ×2 (09:13→21:02)
[2021-09-20] MEDS: DOCUSATE SODIUM 250 MG CAPSULE PO SCH (09:13)
[2021-09-20] MEDS: TAMSULOSIN 0.4 MG CAPSULE PO SCH (09:33)
[2021-09-20] MEDS: SENNA 8.6 MG TABLET PO SCH (09:33)
[2021-09-20] MEDS: SODIUM CHLORIDE FLUSH 0.9% 10 ML SYRINGE IVP PRN (10:56)
--- NOTE | 2021-09-20 11:41 | PROVIDER PROGRESS NOTE ---
Assessment/Plan - Problem List (1) Sepsis Assessment/Plan: Improved. pt has no more fever, blood culture is negative for bacteremia, blood pressure is stable now. pt had lower degree fever at the admission, elevated WBC, SOB with pneumonia. continue Azithromycin and Rocephin, Continue vital signs and cath laboratory technician, Continue high flow oxygen supplement as needed (2) Community acquired pneumonia pt is on high fluid of O2 supplement, pt had fever at the admission, he had elevated WBC, CXR reveal possible pneumonia, and small fluid at left lung. Head azithromycin and Rocephin, we will continue and 2 gram Rocephin, Continue supplement oxygen with high flow as needed (3) COPD exacerbation Patient has history of COPD, he is still smoker, We will continue solu-metro steroid, continue DuoNeb, albuterol, formoterol (4) AAA (abdominal aortic aneurysm) This was noted to be 5.9 x 6.2 cm on an ultrasound done in December 2020. This was ordered by the patient's primary physician Dr. Brent Posada. He was seen by vascular surgeon in the outpatient setting. He declined any intervention. (5) Hypertension Conclusion/Plan: stable, continue home meds, vital sign monitor (6) BPH (benign prostatic hyperplasia) continue Flomax (7) Edema of both lower extremities Conclusion/Plan: acute on Chronic, appears significant edema at both legs currently. Chest x-ray also showed blunting of the costophrenic angles with significant short of breath, now pt is on high flow of O2. ECHO study 6 months ago show 50- 55% EF, elevated RVSP 58mmHG with hx of COPD and custodial of smoker. BNP 200. start with lower dosage of Lasix, lab and vital monitor. - Current Meds Current Meds: Current Medications Generic Name Dose Route Start Last Admin Trade Name Freq PRN Reason Stop Dose Admin Acetaminophen 650 mg 09/19/21 09:06 09/20/21 09:14 Acetaminophen 325 Mg Tablet PO 650 mg Q4HR PRN Administration Pain or Fever > 38C (100.4F) Albuterol/Ipratropium 3 ml 09/19/21 02:39 09/20/21 07:55 Ipratropium/Albuterol 3 Ml Neb INH 3 ml Q4HR PRN Administration Wheezing Allopurinol 300 mg 09/19/21 10:00 09/20/21 09:04 Allopurinol 100 Mg Tablet PO 300 mg DAILY KYE Administration Budesonide 0.5 mg 09/19/21 02:39 09/20/21 07:55 Budesonide 0.5 Mg/2 Ml Neb INH 0.5 mg RTBID KYE Administration Docusate Sodium 250 - 500 mg 09/19/21 11:00 09/20/21 09:13 Docusate Sodium 250 Mg Capsule PO 500 mg DAILY KYE Administration Formoterol Fumarate 20 mcg 09/19/21 02:39 09/20/21 07:55 Formoterol Fumarate Neb 20 Mcg/2 Ml INH 20 mcg RTBID KYE Administration Guaifenesin 600 mg 09/19/21 12:05 09/20/21 09:04 Guaifenesin 600 Mg Tablet PO 600 mg BID KYE Administration Azithromycin 500 mg/ Sodium 250 mls @ 250 mls/hr 09/19/21 02:39 09/19/21 22:33 Chloride IV 09/21/21 21:59 Infused HS KYE Infusion Insulin Aspart 1 - 5 unit 09/19/21 02:39 09/20/21 07:52 Insulin Aspart 300 Unit/3 Ml Pen SUBQ 1 unit 0800,1200,1700,2100 KYE Administration Protocol Lisinopril 20 mg 09/19/21 10:00 09/20/21 09:13 Lisinopril 20 Mg Tablet PO 20 mg BID KYE Administration Methylprednisolone 80 mg 09/19/21 02:39 09/20/21 10:54 Methylprednisolone Succinate 40 Mg/Ml Vial IVP 80 mg Q8H KYE Administration Polyethylene Glycol 17 gm 09/19/21 11:00 09/20/21 09:13 Polyethylene Glycol 3350 17 Gm Packet PO Not Given DAILY KYE Senna 8.6 - 17.2 mg 09/20/21 09:00 09/20/21 09:33 Senna 8.6 Mg Tablet PO 17.2 mg DAILY KYE Administration Sodium Chloride 10 ml 09/19/21 02:39 09/20/21 10:56 Sodium Chloride Flush 0.9% 10 Ml Syringe IVP 10 ml PRN PRN Administration NEEDED PER PROVIDER ORDERS Sodium Chloride 10 ml 09/19/21 02:39 09/20/21 09:33 Sodium Chloride Flush 0.9% 10 Ml Syringe IVP 10 ml 0100,0900,1700 KYE Administration Tamsulosin HCl 0.4 mg 09/19/21 10:30 09/20/21 09:33 Tamsulosin 0.4 Mg Capsule PO 0.4 mg DAILY KYE Administration - Lab Result Fish Bone Diagrams: 09/20/21 05:00 09/20/21 05:00 - Additional Planning My Orders: My Active Orders 09/20/21 21:00 [email or web address] [Rocephin] 2 gm Sodium Chloride 0.9% Minibag [Normal Saline 0.9% Minibag] 100 ml IV HS Subjective - Subjective Patient Reports: Feeling Better, Resting Comfortably Objective Vital Signs: Vital Signs - 24 hr 09/19/21 09/19/21 09/19/21 11:57 12:00 13:00 Temperature 37 C Heart Rate 78 Heart Rate [ 91 78 Monitoring electrodes] Heart Rate [ Radial] Respiratory 26 H 22 18 Rate Blood Pressure [Left Brachial artery] Blood Pressure 118/64 118/74 [Right Brachial artery] O2 Saturation 96 95 09/19/21 09/19/21 09/19/21 14:00 15:15 20:30 Temperature 36.9 C Heart Rate 100 Heart Rate [ 88 98 Monitoring electrodes] Heart Rate [ Radial] Respiratory 24 22 18 Rate Blood Pressure [Left Brachial artery] Blood Pressure 136/87 H 145/68 H [Right Brachial artery] O2 Saturation 96 94 09/19/21 09/20/21 09/20/21 21:00 00:59 03:40 Temperature 36.8 C 37.5 C 37.5 C Heart Rate 102 H Heart Rate [ 96 Monitoring electrodes] Heart Rate [ 102 H Radial] Respiratory 26 H 22 22 Rate Blood Pressure [Left Brachial artery] Blood Pressure 156/93 H 121/72 [Right Brachial artery] O2 Saturation 96 95 95 09/20/21 09/20/21 09/20/21 05:00 07:46 07:56 Temperature 37.3 C 37 C Heart Rate 98 Heart Rate [ Monitoring electrodes] Heart Rate [ 103 H 98 Radial] Respiratory 22 18 20 Rate Blood Pressure 140/78 H [Left Brachial artery] Blood Pressure [Right Brachial artery] O2 Saturation 94 95 09/20/21 09/20/21 08:55 09:01 Temperature Heart Rate Heart Rate [ Monitoring electrodes] Heart Rate [ Radial] Respiratory Rate Blood Pressure [Left Brachial artery] Blood Pressure [Right Brachial artery] O2 Saturation 88 L 92 Oxygen O2 Source HHFNC Oxygen Flow Rate 15 I&O (Last 24 Hrs): Intake and Output Totals x24h 09/18/21 09/19/21 09/20/21 23:59 23:59 23:59 Intake Total 2350 240 Output Total 950 695 Balance 1400 -455 General: Alert, Oriented x3, Cooperative, No acute distress HEENT: Atraumatic Neck: Supple Lymphatic: no adenopathy Neuro: Alert, Non Focal, Oriented Times 3 Cardiovascular: Regular rate, Normal S1, Normal S2 Respiratory: Chest non-tender, No respiratory distress, Rhonchi Abdomen: Normal bowel sounds, Soft, No tenderness Extremities: Normal pulses, Other (Bilateral lower extremity edema) - Results Results: Laboratory Results WBC 16.2 x10^3/uL (4.8-10.8) H 09/20/21 05:00 RBC 4.41 10^6/uL (4.70-6.10) L 09/20/21 05:00 Hgb 14.2 g/dL (14.0-18.0) 09/20/21 05:00 Hct 45.0 % (42.0-52.0) 09/20/21 05:00 MCV 102.0 fL (80.0-94.0) H 09/20/21 05:00 MCH 32.2 pg (27.0-31.0) H 09/20/21 05:00 MCHC 31.6 g/dL (32.0-36.0) L 09/20/21 05:00 RDW 14.4 % (12.0-15.0) 09/20/21 05:00 Plt Count 201 10^3/uL (130-450) 09/20/21 05:00 MPV 10.4 fL (7.4-11.4) 09/20/21 05:00 Neut # (Auto) 14.9 10^3/uL (1.5-6.6) H 09/20/21 05:00 Lymph # (Auto) 0.6 10^3/uL (1.5-3.5) L 09/20/21 05:00 [place] # (Auto) 0.6 10^3/uL (0.0-1.0) 09/20/21 05:00 Eos # (Auto) 0.0 10^3/uL (0.0-0.7) 09/20/21 05:00 Baso # (Auto) 0.0 10^3/uL (0.0-0.1) 09/20/21 05:00 Absolute Nucleated RBC 0.00 x10^3/uL 09/20/21 05:00 Nucleated RBC % 0.0 /100WBC 09/20/21 05:00 VBG pH 7.341 (7.31-7.41) 09/19/21 00:32 VBG pCO2 53.7 mmHg (41-51) H 09/19/21 00:32 VBG pO2 43.5 mmHg (25-47) 09/19/21 00:32 VBG HCO3 28.4 mmol/L (23-28) H 09/19/21 00:32 VBG Total CO2 30.0 mmol/L (24-29) H 09/19/21 00:32 VBG O2 Saturation 77.1 % (60-80) 09/19/21 00:32 VBG Base Excess 1.4 mmol/L (-2 - +2) 09/19/21 00:32 Sodium 137 mmol/L (135-145) 09/20/21 05:00 Potassium 4.6 mmol/L (3.5-5.0) 09/20/21 05:00 Chloride 99 mmol/L (101-111) L 09/20/21 05:00 Carbon Dioxide 30 mmol/L (21-32) 09/20/21 05:00 Anion Gap 8.0 (6-13) 09/20/21 05:00 BUN 29 mg/dL (6-20) H 09/20/21 05:00 Creatinine 0.8 mg/dL (0.6-1.2) 09/20/21 05:00 Estimated GFR (MDRD) 92 (>89) 09/20/21 05:00 Glucose 161 mg/dL (70-100) H 09/20/21 05:00 Lactic Acid 1.0 mmol/L (0.5-2.2) 09/19/21 00:32 Calcium 8.6 mg/dL (8.5-10.3) 09/20/21 05:00 Total Bilirubin 1.1 mg/dL (0.2-1.0) H 09/19/21 00:32 AST 32 IU/L (10-42) 09/19/21 00:32 ALT 44 IU/L (10-60) 09/19/21 00:32 Alkaline Phosphatase 104 IU/L (42-121) 09/19/21 00:32 Troponin I High Sens 16.6 ng/L (2.3-19.7) 09/19/21 02:33 B-Natriuretic Peptide 201 pg/mL (5-100) H 09/19/21 03:03 Total Protein 6.8 g/dL (6.7-8.2) 09/19/21 00:32 Albumin 3.7 g/dL (3.2-5.5) 09/19/21 00:32 Globulin 3.1 g/dL (2.1-4.2) 09/19/21 00:32 Albumin/Globulin Ratio 1.2 (1.0-2.2) 09/19/21 00:32 Lipase 19 U/L (22-51) L 09/19/21 00:32 Nasal Adenovirus (PCR) NOT DETECTED 09/19/21 00:13 Nasal B. parapertussis DNA (PCR) NOT DETECTED 09/19/21 00:13 Nasal Coronavir 229E PCR NOT DETECTED 09/19/21 00:13 Nasal Coronavir HKU1 PCR NOT DETECTED 09/19/21 00:13 Nasal Coronavir NL63 PCR NOT DETECTED 09/19/21 00:13 Nasal Coronavir OC43 PCR NOT DETECTED 09/19/21 00:13 Nasal Enterovir/Rhinovir PCR NOT DETECTED 09/19/21 00:13 Nasal Influenza B PCR NOT DETECTED 09/19/21 00:13 Nasal Influenza A PCR NOT DETECTED 09/19/21 00:13 Nasal Parainfluen 1 PCR NOT DETECTED 09/19/21 00:13 Nasal Parainfluen 2 PCR NOT DETECTED 09/19/21 00:13 Nasal Parainfluen 3 PCR DETECTED A 09/19/21 00:13 Nasal Parainfluen 4 PCR NOT DETECTED 09/19/21 00:13 Nasal RSV (PCR) NOT DETECTED 09/19/21 00:13 Nasal Screen MRSA (PCR) NEGATIVE (NEGATIVE) 09/19/21 02:45 Nasal B.pertussis DNA PCR NOT DETECTED 09/19/21 00:13 Nasal C.pneumoniae (PCR) NOT DETECTED 09/19/21 00:13 Sharad Human Metapneumo PCR NOT DETECTED 09/19/21 00:13 Nasal M.pneumoniae (PCR) NOT DETECTED 09/19/21 00:13 Nasal SARS-CoV-2 (PCR) NOT DETECTED 09/19/21 00:13 Sepsis Event Note (H) - Evaluation Current Stage of Sepsis: Sepsis Possible source of Sepsis: positive: Pulmonary - Sepsis Criteria Sepsis Criteria: Recorded Temperature greater than 38.3C or Less than 36C, Respiratory: Increasing oxygen requirements, WBC count greater than 12,000 or less than 4000 ABX Reporting Has patient been on IV antibiotics over the past 48 hours?: Yes Current Medications - Current Medications Current Medications: Active Medications Acetaminophen (Acetaminophen 325 Mg Tablet) 650 mg PO Q4HR PRN PRN Reason: Pain or Fever > 38C (100.4F) Last Admin: 09/20/21 09:14 Dose: 650 mg Documented by: Albuterol/Ipratropium (Ipratropium/Albuterol 3 Ml Neb) 3 ml INH Q4HR PRN PRN Reason: Wheezing Last Admin: 09/20/21 07:55 Dose: 3 ml Documented by: Allopurinol (Allopurinol 100 Mg Tablet) 300 mg PO DAILY [facility] Last Admin: 09/20/21 09:04 Dose: 300 mg Documented by: Budesonide (Budesonide 0.5 Mg/2 Ml Neb) 0.5 mg INH RTBID [facility] Last Admin: 09/20/21 07:55 Dose: 0.5 mg Documented by: Docusate Sodium (Docusate Sodium 250 Mg Capsule) 250 - 500 mg PO DAILY [facility] Last Admin: 09/20/21 09:13 Dose: 500 mg Documented by: Formoterol Fumarate (Formoterol Fumarate Neb 20 Mcg/2 Ml) 20 mcg INH RTBID [facility] Last Admin: 09/20/21 07:55 Dose: 20 mcg Documented by: Furosemide (Furosemide 20 Mg/2 Ml Vial) 20 mg IVP DAILY [facility] Last Admin: 09/20/21 11:54 Dose: 20 mg Documented by: Guaifenesin (Guaifenesin 600 Mg Tablet) 600 mg PO BID [facility] Last Admin: 09/20/21 09:04 Dose: 600 mg Documented by: Azithromycin 500 mg/ Sodium (Chloride) 250 mls @ 250 mls/hr IV HS [facility] Stop: 09/21/21 21:59 Last Infusion: 09/19/21 22:33 Dose: Infused Documented by: Ceftriaxone Sodium 2 gm/ (Sodium Chloride) 100 mls @ 200 mls/hr IV [facility] Stop: 09/26/21 21:29 Insulin Aspart (Insulin Aspart 300 Unit/3 Ml Pen) 1 - 5 unit SUBQ 0800,1200,1700,2100 [facility]; Protocol Last Admin: 09/20/21 11:48 Dose: 1 unit Documented by: Lisinopril (Lisinopril 20 Mg Tablet) 20 mg PO BID [facility] Last Admin: 09/20/21 09:13 Dose: 20 mg Documented by: Methylprednisolone Sodium Succinate (Methylprednisolone Succinate 125 Mg/2 Ml Vial) 60 mg IVP Q8H [facility] Morphine Sulfate (Morphine 2 Mg/Ml Carpuject) 2 mg IVP Q4HR PRN PRN Reason: Dyspnea Nicotine (Nicotine 14 Mg Patch) 1 patch TOP DAILY PRN PRN Reason: Nicotine Craving Ondansetron HCl (Ondansetron 4 Mg/2 Ml Vial) 4 mg IVP Q6HR PRN PRN Reason: Nausea / Vomiting Oxycodone HCl (Oxycodone 5 Mg Tablet) 5 mg PO Q4HR PRN PRN Reason: Pain 5 to 7 Polyethylene Glycol (Polyethylene Glycol 3350 17 Gm Packet) 17 gm PO DAILY [facility] Last Admin: 09/20/21 09:13 Dose: Not Given Documented by: Senna (Senna 8.6 Mg Tablet) 8.6 - 17.2 mg PO DAILY [facility] Last Admin: 09/20/21 09:33 Dose: 17.2 mg Documented by: Sodium Chloride (Sodium Chloride Flush 0.9% 10 Ml Syringe) 10 ml IVP PRN PRN PRN Reason: NEEDED PER PROVIDER ORDERS Last Admin: 09/20/21 10:56 Dose: 10 ml Documented by: Sodium Chloride (Sodium Chloride Flush 0.9% 10 Ml Syringe) 10 ml IVP 0100,0900,1700 [facility] Last Admin: 09/20/21 09:33 Dose: 10 ml Documented by: Tamsulosin HCl (Tamsulosin 0.4 Mg Capsule) 0.4 mg PO DAILY [facility] Last Admin: 09/20/21 09:33 Dose: 0.4 mg Documented by: Albuterol 2.5 mg INH Q4H PRN 12/28/20 Alfuzosin HCl [Uroxatral] 10 mg PO DAILY 12/28/20 Lisinopril [Zestril] 20 mg PO BID 12/28/20 Meloxicam [Mobic] 15 mg PO DAILY 12/28/20 Mometasone/Formoterol [Dulera 100 Mcg-5 Mcg Inhaler] 4 puffs IH DAILY 12/28/20 [place]-3/Dha/Epa/Fish Oil [Fish Oil 1,000 mg Softgel] 1 cap PO DAILY 12/28/20 Sennosides/Docusate Sodium [Stool Softener-Laxative Tablet] 250 mg PO BID 12/28/20 Tiotropium [place] [Spiriva] 1 cap PO DAILY 12/28/20 allopurinoL [Zyloprim] 300 mg PO DAILY 12/28/20 cloNIDine [Catapres] 0.1 mg PO BID 12/28/20
[2021-09-20] MEDS: FUROSEMIDE 20 MG/2 ML VIAL IVP SCH (11:54)
[2021-09-20] MEDS: cefTRIAXone 2 GM in SODIUM CHLORIDE 0.9% MINIBAG 100 ML IV SCH (20:59)
[2021-09-20] MEDS ORDERED: cefTRIAXone 1 GM in SODIUM CHLORIDE 0.9% MINIBAG 100 ML IV SCH (21:00)
[2021-09-20] MEDS ORDERED: AZITHROMYCIN INJ 500 MG in SODIUM CHLORIDE 0.9% 250 ML IV SCH (21:00)
[2021-09-20] MEDS: AZITHROMYCIN INJ 500 MG in SODIUM CHLORIDE 0.9% 250 ML IV SCH (21:39)
[2021-09-20] MEDS: methylPREDNISolone SUCCINATE 125 MG/2 ML VIAL IVP SCH (21:40)
[2021-09-21 05:40] LABS: BASOPHILS % (AUTO) 0.1 %; HCT - HEMATOCRIT 45.4 % (42.0-52.0); HGB - HEMOGLOBIN 14.4 g/dL (14.0-18.0); LYMPHOCYTES # (AUTO) 0.8 10^3/uL (1.5-3.5); LYMPHOCYTES % (AUTO) 5.6 %; MEAN CORPUSCULAR HEMOGLOBIN 32.5 pg (27.0-31.0); MEAN CORPUSCULAR HGB CONC 31.7 g/dL (32.0-36.0); MEAN CORPUSCULAR VOLUME 102.5 fL (80.0-94.0); MEAN PLATELET VOLUME 10.6 fL (7.4-11.4); MONOCYTES # (AUTO) 0.6 10^3/uL (0.0-1.0); MONOCYTES % (AUTO) 4.2 %; NEUTROPHILS # (AUTO) 12.9 10^3/uL (1.5-6.6); NEUTROPHILS % (AUTO) 89.5 %; PLT - PLATELET COUNT 239 10^3/uL (130-450); RED BLOOD COUNT 4.43 10^6/uL (4.70-6.10); WHITE BLOOD COUNT 14.4 x10^3/uL (4.8-10.8)
[2021-09-21 05:48] LABS: CALCIUM 8.8 mg/dL (8.5-10.3); CREATININE 0.7 mg/dL (0.6-1.2); POTASSIUM 4.4 mmol/L (3.5-5.0)
[2021-09-21] MEDS: IPRATROPIUM/ALBUTEROL 3 ML NEB INH PRN ×2 (06:21→19:25)
[2021-09-21] MEDS: FORMOTEROL FUMARATE NEB 20 MCG/2 ML INH SCH ×2 (06:21→19:25)
[2021-09-21] MEDS: BUDESONIDE 0.5 MG/2 ML NEB INH SCH ×2 (06:21→19:25)
[2021-09-21] MEDS: SODIUM CHLORIDE FLUSH 0.9% 10 ML SYRINGE IVP SCH ×3 (06:49→15:59)
[2021-09-21] MEDS: methylPREDNISolone SUCCINATE 125 MG/2 ML VIAL IVP SCH ×3 (06:49→22:10)
[2021-09-21] MEDS: INSULIN ASPART 300 UNIT/3 ML PEN SUBQ SCH ×4 (07:27→22:13)
[2021-09-21] MEDS: NICOTINE 14 MG PATCH TOP PRN (08:21)
[2021-09-21] MEDS: polyethylene glycoL 3350 17 GM PACKET PO SCH (08:22)
[2021-09-21] MEDS: allopurinoL 100 MG TABLET PO SCH (08:22)
[2021-09-21] MEDS: TAMSULOSIN 0.4 MG CAPSULE PO SCH (08:22)
[2021-09-21] MEDS: guaiFENesin 600 MG TABLET PO SCH ×2 (08:22→22:02)
[2021-09-21] MEDS: lisinopriL 20 MG TABLET PO SCH ×2 (08:22→22:02)
[2021-09-21] MEDS: DOCUSATE SODIUM 250 MG CAPSULE PO SCH (08:22)
[2021-09-21] MEDS: SENNA 8.6 MG TABLET PO SCH (08:22)
[2021-09-21] MEDS: FUROSEMIDE 20 MG/2 ML VIAL IVP SCH (08:26)
--- NOTE | 2021-09-21 11:10 | PROVIDER PROGRESS NOTE ---
Subjective - Prog Note Date Prog Note Date: 09/21/21 - Subjective Pt reports feeling: Improved Subjective: Pt reports he feels a little better than the previous days and is requesting to restart his home eye drops. Continues to report dyspnea and has been back on the high flow nasal cannula this morning. Reportedly requested to use the nasal cannula when up to the commode and had a significant drop in oxygen saturation per nursing, is now back on the HFNC. Denies pain, nausea or vomiting. Objective - Vital Signs/Intake & Output Reviewed Vital Signs: Yes Vital Signs: Vital Signs x48h Temp Pulse Pulse Resp BP Pulse Ox 09/21/21 09:09 113 H 24 90 L 09/21/21 09:06 114 H 23 81 L 09/21/21 07:25 36.9 C 93 20 123/80 98 09/21/21 06:20 89 20 09/21/21 05:00 36.8 C 95 18 143/85 H 90 L Intake & Output: Intake & Output 09/18/21 09/19/21 09/20/21 09/21/21 23:59 23:59 23:59 23:59 Intake Total 2350 770 240 Output Total 950 995 925 Balance 7760 -198 -963 - Objective General Appearance: positive: No acute distress, Alert Eyes Bilateral: positive: Normal inspection ENT: positive: ENT inspection nml, No signs of dehydration Respiratory: positive: Chest non-tender, No respiratory distress, Rhonchi (in all lobes) Cardiovascular: positive: Regular rate & rhythm Peripheral Pulses: 2+ Dorsalis pedis (R), 2+ Dorsalis pedis (L) Abdomen: positive: Non-tender, No organomegaly, Nml bowel sounds, Other (obese, slightly distended) Back: positive: Nml inspection Skin: positive: Pallor Extremities: positive: Non-tender, Full ROM, Nml appearance, Pedal edema Neurologic/Psychiatric: positive: Oriented x3 - Lab Results Fish Bones: 09/21/21 04:51 09/21/21 04:51 Other Labs: Lab Results x24hrs 09/21/21 09/21/21 Range/Units 04:51 04:51 WBC 14.4 H (4.8-10.8) x10^3/uL RBC 4.43 L (4.70-6.10) 10^6/uL Hgb 14.4 (14.0-18.0) g/dL Hct 45.4 (42.0-52.0) % MCV 102.5 H (80.0-94.0) fL MCH 32.5 H (27.0-31.0) pg MCHC 31.7 L (32.0-36.0) g/dL RDW 14.0 (12.0-15.0) % Plt Count 239 (130-450) 10^3/uL MPV 10.6 (7.4-11.4) fL Neut # (Auto) 12.9 H (1.5-6.6) 10^3/uL Lymph # (Auto) 0.8 L (1.5-3.5) 10^3/uL [place] # (Auto) 0.6 (0.0-1.0) 10^3/uL Eos # (Auto) 0.0 (0.0-0.7) 10^3/uL Baso # (Auto) 0.0 (0.0-0.1) 10^3/uL Absolute Nucleated RBC 0.00 x10^3/uL Nucleated RBC % 0.0 /100WBC Sodium 138 (135-145) mmol/L Potassium 4.4 (3.5-5.0) mmol/L Chloride 97 L (101-111) mmol/L Carbon Dioxide 34 H (21-32) mmol/L Anion Gap 7.0 (6-13) BUN 25 H (6-20) mg/dL Creatinine 0.7 (0.6-1.2) mg/dL Estimated GFR (MDRD) 107 (>89) Glucose 160 H (70-100) mg/dL Calcium 8.8 (8.5-10.3) mg/dL ABX Reporting Has patient been on IV antibiotics over the past 48 hours?: Yes Sepsis Event Note (H) - Evaluation Current Stage of Sepsis: Sepsis Possible source of Sepsis: positive: Pulmonary - Sepsis Criteria Sepsis Criteria: Recorded Temperature greater than 38.3C or Less than 36C, Respiratory: Increasing oxygen requirements, WBC count greater than 12,000 or less than 4000 Assessment/Plan - Problem List (1) Sepsis Impression: Improving. WBC downtrending to 14.4, from 16.2 on 09/20. Afebrile, BPs normotensive. Tachycardic this morning. ON admission he had a low grade fever, leukocytosis, and SOB. His last dose of Azithromycin is scheduled for this evening, Rocephin due to continue through 09/26. Will continue medical management. -IV abx -Supplemental oxygen as needed (remains on HFNC) -Continue to monitor vitals and labs Qualifiers: Sepsis type: sepsis due to unspecified organism Acute respiratory failure type: with hypoxia Severe sepsis shock status: without septic shock (2) Community acquired pneumonia Impression: Febrile with leukocytosis at admission. Afebrile overnight and this morning, WBC downtrending currently to 14.4 from 16.2. Admission CXR showed pneumonia with increased opacity in the left lower lobe. He was started on antibiotics and has been on high flow nasal cannula for hypoxia. -Continue abx, last dose of Azithromycin due today, Rocephin through 09/26 -Supplemental oxygen as needed Qualifiers: Laterality: left Lung location: lower lobe of lung Qualified Code(s): J18.9 - Pneumonia, unspecified organism (3) COPD exacerbation Impression: Stable. Has a history of COPD, does not use oxygen at home. Continues to smoke at home. -Supplemental oxygen as needed -Solu-medrol and DuoNebs continued -Social Work consult for tobacco cessation (4) AAA (abdominal aortic aneurysm) Impression: Stable. Noted to be 5.9 x 6.2cm on ultrasound December 2020. He was seen by Vascular at an outpatient follow up and declined intervention. Continues to deny chest pain or palpitations. Qualifiers: Presence of rupture: without rupture Qualified Code(s): I71.4 - Abdominal aortic aneurysm, without rupture (5) Hypertension Impression: Stable. Has been normotensive. Continue home meds and to monitor vital signs. Qualifiers: Hypertension type: primary hypertension Qualified Code(s): I10 - Essential (primary) hypertension (6) BPH (benign prostatic hyperplasia) Impression: Stable. Has not complained of dysuria or difficulty initiating stream while here. Flomax continued. Qualifiers: Lower urinary tract symptom presence: symptoms absent Qualified Code(s): N40.0 - Benign prostatic hyperplasia without lower urinary tract symptoms (7) Edema of both lower extremities Impression: Improved, 1+ lower extremity and pedal edema on my exam this morning. Continue elevation while in bed or up in the chair. Continue Lasix. Does not have a diagnosis of heart failure, BNP on admission 201. ECHO performed 6 months ago revealed EF 50-55% with elevated RVSP 58mmHg.
[2021-09-21] MEDS: DORZOLAMIDE 2% OPHTH DROPS EACHEYE SCH ×2 (11:46→22:09)
[2021-09-21] MEDS ORDERED: LATANOPROST 0.005% OPHTH DROPS EACHEYE SCH (12:00)
--- NOTE | 2021-09-21 12:29 | PHARMACY PROGRESS NOTE ---
- Best Possible Medication History Admit Date and Time: 09/19/21 0154 Processed by: Nursing Medication History completed: Yes Secondary Source(s): Insurance records As the person ultimately responsible for medication therapy, providers are able to order a medication from an existing home medication list in [facility] via the "Reconcile Routine" prior to Confirmation of that medication by unit support representative. Such practice is discouraged except when the physician, in their clinical judgment, deems that a medical need exists for a medication without regard to previous use.
[2021-09-21] MEDS: SODIUM CHLORIDE FLUSH 0.9% 10 ML SYRINGE IVP PRN (13:47)
[2021-09-21] MEDS: cefTRIAXone 2 GM in SODIUM CHLORIDE 0.9% MINIBAG 100 ML IV SCH (21:59)
[2021-09-21] MEDS: LATANOPROST 0.005% OPHTH DROPS EACHEYE SCH (22:14)
[2021-09-21] MEDS: AZITHROMYCIN INJ 500 MG in SODIUM CHLORIDE 0.9% 250 ML IV SCH (22:44)
[2021-09-22] MEDS: SODIUM CHLORIDE FLUSH 0.9% 10 ML SYRINGE IVP SCH ×4 (00:12→23:38)
[2021-09-22] MEDS: SODIUM CHLORIDE FLUSH 0.9% 10 ML SYRINGE IVP PRN ×4 (05:59→21:00)
[2021-09-22] MEDS: methylPREDNISolone SUCCINATE 125 MG/2 ML VIAL IVP SCH ×3 (05:59→21:00)
[2021-09-22] MEDS: FORMOTEROL FUMARATE NEB 20 MCG/2 ML INH SCH ×2 (06:00→17:28)
[2021-09-22] MEDS: IPRATROPIUM/ALBUTEROL 3 ML NEB INH PRN (06:00)
[2021-09-22] MEDS: BUDESONIDE 0.5 MG/2 ML NEB INH SCH ×2 (06:00→17:28)
[2021-09-22 06:13] LABS: BASOPHILS % (AUTO) 0.2 %; HCT - HEMATOCRIT 47.3 % (42.0-52.0); HGB - HEMOGLOBIN 15.2 g/dL (14.0-18.0); LYMPHOCYTES # (AUTO) 0.9 10^3/uL (1.5-3.5); LYMPHOCYTES % (AUTO) 7.8 %; MEAN CORPUSCULAR HEMOGLOBIN 32.3 pg (27.0-31.0); MEAN CORPUSCULAR HGB CONC 32.1 g/dL (32.0-36.0); MEAN CORPUSCULAR VOLUME 100.6 fL (80.0-94.0); MONOCYTES # (AUTO) 0.5 10^3/uL (0.0-1.0); MONOCYTES % (AUTO) 4.5 %; NEUTROPHILS # (AUTO) 9.9 10^3/uL (1.5-6.6); NEUTROPHILS % (AUTO) 86.5 %; PLT - PLATELET COUNT 259 10^3/uL (130-450); RED CELL DISTRIBUTION WIDTH 13.6 % (12.0-15.0); WHITE BLOOD COUNT 11.4 x10^3/uL (4.8-10.8)
[2021-09-22 06:24] LABS: CALCIUM 9.1 mg/dL (8.5-10.3); CREATININE 0.8 mg/dL (0.6-1.2); POTASSIUM 4.4 mmol/L (3.5-5.0)
[2021-09-22] MEDS: INSULIN ASPART 300 UNIT/3 ML PEN SUBQ SCH ×4 (08:04→20:56)
[2021-09-22] MEDS: DORZOLAMIDE 2% OPHTH DROPS EACHEYE SCH ×2 (08:05→20:55)
[2021-09-22] MEDS: FUROSEMIDE 20 MG/2 ML VIAL IVP SCH (08:07)
[2021-09-22] MEDS: DOCUSATE SODIUM 250 MG CAPSULE PO SCH (08:10)
[2021-09-22] MEDS: polyethylene glycoL 3350 17 GM PACKET PO SCH (08:10)
[2021-09-22] MEDS: SENNA 8.6 MG TABLET PO SCH (08:10)
[2021-09-22] MEDS: TAMSULOSIN 0.4 MG CAPSULE PO SCH (08:11)
[2021-09-22] MEDS: lisinopriL 20 MG TABLET PO SCH ×2 (08:11→20:58)
[2021-09-22] MEDS: guaiFENesin 600 MG TABLET PO SCH ×2 (08:11→20:58)
[2021-09-22] MEDS: allopurinoL 100 MG TABLET PO SCH (08:11)
[2021-09-22] MEDS: NICOTINE 14 MG PATCH TOP PRN (08:15)
--- NOTE | 2021-09-22 14:52 | PROVIDER PROGRESS NOTE ---
Subjective - Prog Note Date Prog Note Date: 09/22/21 - Subjective Pt reports feeling: Improved Subjective: Pt reports he slept well overnight and is feeling slightly better. He reports that his nares are dry and painful from the nasal cannula and high flow nasal cannula and requested to be transitioned to a face mask for relief. O2 saturations have been 88-90% on 8-10L of the oxymizer and face mask. Denies dyspnea, fevers, chills and pain. Objective - Vital Signs/Intake & Output Reviewed Vital Signs: Yes Vital Signs: Vital Signs x48h Temp Pulse Resp BP Pulse Ox 09/22/21 11:20 37 C 100 22 141/73 H 90 L 09/22/21 08:21 117 H 22 90 L 09/22/21 08:00 115 H 22 88 L 09/22/21 07:25 36.5 C 104 H 20 125/76 92 Intake & Output: Intake & Output 09/19/21 09/20/21 09/21/21 09/22/21 23:59 23:59 23:59 23:59 Intake Total 2350 770 1595 1090 Output Total 502 659 1210 Balance 1400 -225 -530 1090 - Objective General Appearance: positive: No acute distress, Alert Eyes Bilateral: positive: Normal inspection ENT: positive: ENT inspection nml, No signs of dehydration, Other (dry nares mucosa) Respiratory: positive: Chest non-tender, No respiratory distress, Rhonchi Cardiovascular: positive: Irregularly irregular Peripheral Pulses: 2+ Dorsalis pedis (R), 2+ Dorsalis pedis (L) Abdomen: positive: Non-tender, No organomegaly, Nml bowel sounds, No distention Skin: positive: Other (flushed cheeks) Extremities: positive: Non-tender, Full ROM, Nml appearance Neurologic/Psychiatric: positive: Oriented x3 - Lab Results Fish Bones: 09/22/21 05:55 09/22/21 05:55 Other Labs: Lab Results x24hrs 09/22/21 09/22/21 09/22/21 Range/Units 05:55 05:55 05:55 WBC 11.4 H (4.8-10.8) x10^3/uL RBC 4.70 (4.70-6.10) 10^6/uL Hgb 15.2 (14.0-18.0) g/dL Hct 47.3 (42.0-52.0) % MCV 100.6 H (80.0-94.0) fL MCH 32.3 H (27.0-31.0) pg MCHC 32.1 (32.0-36.0) g/dL RDW 13.6 (12.0-15.0) % Plt Count 259 (130-450) 10^3/uL MPV 10.0 (7.4-11.4) fL Neut # (Auto) 9.9 H (1.5-6.6) 10^3/uL Lymph # (Auto) 0.9 L (1.5-3.5) 10^3/uL [place] # (Auto) 0.5 (0.0-1.0) 10^3/uL Eos # (Auto) 0.0 (0.0-0.7) 10^3/uL Baso # (Auto) 0.0 (0.0-0.1) 10^3/uL Absolute Nucleated RBC 0.00 x10^3/uL Nucleated RBC % 0.0 /100WBC Sodium 140 (135-145) mmol/L Potassium 4.4 (3.5-5.0) mmol/L Chloride 94 L (101-111) mmol/L Carbon Dioxide 38 H (21-32) mmol/L Anion Gap 8.0 (6-13) BUN 26 H (6-20) mg/dL Creatinine 0.8 (0.6-1.2) mg/dL Estimated GFR (MDRD) 92 (>89) Glucose 172 H (70-100) mg/dL Calcium 9.1 (8.5-10.3) mg/dL Magnesium 2.2 (1.7-2.8) mg/dL ABX Reporting Has patient been on IV antibiotics over the past 48 hours?: Yes Sepsis Event Note (H) - Evaluation Current Stage of Sepsis: Sepsis Possible source of Sepsis: positive: Pulmonary - Sepsis Criteria Sepsis Criteria: Recorded Temperature greater than 38.3C or Less than 36C, Respiratory: Increasing oxygen requirements, WBC count greater than 12,000 or less than 4000 Assessment/Plan - Problem List (1) Sepsis Impression: Improving. WBC downtrending to 11.4 from 14.4 on 09/21 and from 16.2 on 09/20. A febrile, BPs slightly hypertensive. Tachycardic this morning. ON admission he had a low grade fever, leukocytosis, and SOB. Finished his course of Azithromycin yesterday. Rocephin due to continue through 09/26. Will continue medical management. -IV abx -Supplemental oxygen as needed (remains on oxymizer) -Continue to monitor vitals and labs Qualifiers: Sepsis type: sepsis due to unspecified organism Acute respiratory failure type: with hypoxia Severe sepsis shock status: without septic shock (2) Community acquired pneumonia Impression: Febrile with leukocytosis at admission. Afebrile overnight and this morning, WBC downtrending currently to 11.4. Admission CXR showed pneumonia with increased opacity in the left lower lobe. He was started on antibiotics and has been on high flow nasal cannula for hypoxia. -Continue abx, last dose of Azithromycin given yesterday, Rocephin through 09/26 -Supplemental oxygen as needed Qualifiers: Laterality: left Lung location: lower lobe of lung Qualified Code(s): J18.9 - Pneumonia, unspecified organism (3) COPD exacerbation Impression: Stable. Has a history of COPD, does not use oxygen at home. Continues to smoke at home. -Supplemental oxygen as needed -Solu-medrol and DuoNebs continued -Social Work consult for tobacco cessation (4) AAA (abdominal aortic aneurysm) Impression: Stable. Noted to be 5.9 x 6.2cm on ultrasound December 2020. He was seen by Vascular at an outpatient follow up and declined intervention. Continues to deny chest pain or palpitations. Qualifiers: Presence of rupture: without rupture Qualified Code(s): I71.4 - Abdominal aortic aneurysm, without rupture (5) Hypertension Impression: Stable. Slightly elevated this morning to SBP 140s. Continue home meds and to monitor vital signs. Qualifiers: Hypertension type: primary hypertension Qualified Code(s): I10 - Essential (primary) hypertension (6) BPH (benign prostatic hyperplasia) Impression: Stable. Has not complained of dysuria or difficulty initiating stream while he re. Flomax continued. Qualifiers: Lower urinary tract symptom presence: symptoms absent Qualified Code(s): N40.0 - Benign prostatic hyperplasia without lower urinary tract symptoms (7) Edema of both lower extremities Impression: Improved, 1+ lower extremity and pedal edema on my exam this morning. Continue elevation while in bed or up in the chair. Continue Lasix. Does not have a diagnosis of heart failure, BNP on admission 201. ECHO performed 6 months ago revealed EF 50-55% with elevated RVSP 58mmHg.
[2021-09-22] MEDS: cefTRIAXone 2 GM in SODIUM CHLORIDE 0.9% MINIBAG 100 ML IV SCH (20:50)
[2021-09-22] MEDS: LATANOPROST 0.005% OPHTH DROPS EACHEYE SCH (20:55)
[2021-09-23] MEDS: methylPREDNISolone SUCCINATE 125 MG/2 ML VIAL IVP SCH ×3 (05:12→22:04)
[2021-09-23 06:54] LABS: BASOPHILS % (AUTO) 0.2 %; HCT - HEMATOCRIT 49.1 % (42.0-52.0); HGB - HEMOGLOBIN 16.1 g/dL (14.0-18.0); LYMPHOCYTES # (AUTO) 0.9 10^3/uL (1.5-3.5); LYMPHOCYTES % (AUTO) 7.2 %; MEAN CORPUSCULAR HEMOGLOBIN 32.5 pg (27.0-31.0); MEAN CORPUSCULAR HGB CONC 32.8 g/dL (32.0-36.0); MEAN CORPUSCULAR VOLUME 99.2 fL (80.0-94.0); MEAN PLATELET VOLUME 9.9 fL (7.4-11.4); MONOCYTES # (AUTO) 0.7 10^3/uL (0.0-1.0); MONOCYTES % (AUTO) 5.2 %; NEUTROPHILS # (AUTO) 10.8 10^3/uL (1.5-6.6); NEUTROPHILS % (AUTO) 86.2 %; PLT - PLATELET COUNT 267 10^3/uL (130-450); RED BLOOD COUNT 4.95 10^6/uL (4.70-6.10); RED CELL DISTRIBUTION WIDTH 13.7 % (12.0-15.0); WHITE BLOOD COUNT 12.6 x10^3/uL (4.8-10.8)
[2021-09-23 07:03] LABS: CALCIUM 9.3 mg/dL (8.5-10.3); CREATININE 0.8 mg/dL (0.6-1.2); POTASSIUM 4.4 mmol/L (3.5-5.0)
[2021-09-23] MEDS: IPRATROPIUM/ALBUTEROL 3 ML NEB INH PRN (07:11)
[2021-09-23] MEDS: FORMOTEROL FUMARATE NEB 20 MCG/2 ML INH SCH ×2 (07:11→19:17)
[2021-09-23] MEDS: BUDESONIDE 0.5 MG/2 ML NEB INH SCH ×2 (07:11→19:17)
[2021-09-23] MEDS: INSULIN ASPART 300 UNIT/3 ML PEN SUBQ SCH ×4 (08:22→22:05)
[2021-09-23] MEDS: DOCUSATE SODIUM 250 MG CAPSULE PO SCH (08:23)
[2021-09-23] MEDS: guaiFENesin 600 MG TABLET PO SCH ×2 (08:24→22:03)
[2021-09-23] MEDS: SENNA 8.6 MG TABLET PO SCH (08:24)
[2021-09-23] MEDS: lisinopriL 20 MG TABLET PO SCH ×2 (08:24→22:03)
[2021-09-23] MEDS: allopurinoL 100 MG TABLET PO SCH (08:24)
[2021-09-23] MEDS: TAMSULOSIN 0.4 MG CAPSULE PO SCH (08:24)
[2021-09-23] MEDS: SODIUM CHLORIDE FLUSH 0.9% 10 ML SYRINGE IVP SCH ×3 (08:26→23:51)
[2021-09-23] MEDS: FUROSEMIDE 20 MG/2 ML VIAL IVP SCH (08:26)
[2021-09-23] MEDS: polyethylene glycoL 3350 17 GM PACKET PO SCH (08:27)
[2021-09-23] MEDS: DORZOLAMIDE 2% OPHTH DROPS EACHEYE SCH ×2 (08:46→22:05)
[2021-09-23] MEDS: NICOTINE 14 MG PATCH TOP PRN (10:21)
--- NOTE | 2021-09-23 16:17 | PROVIDER PROGRESS NOTE ---
Assessment/Plan - Problem List (1) COPD exacerbation Assessment/Plan: Improved On solumedrol 60mg IV tid Duoneb q4hrs prn On budesonide and performist Mucinex bid for cough On 4L O2 via N/C with O2Sat at 94% with 2L O2 his O2 Sat drops to the 80's Patient will likely need supplemental Oxygen upon discharge (2) Community acquired pneumonia Qualifiers: Laterality: left Lung location: lower lobe of lung Qualified Code(s): J18.9 - Pneumonia, unspecified organism Assessment/Plan: Improving WBC 12.6. At admission 15.2 Patient completed azithromycin On rocephin 1g IV daily. (3) AAA (abdominal aortic aneurysm) Qualifiers: Presence of rupture: without rupture Qualified Code(s): I71.4 - Abdominal aortic aneurysm, without rupture Assessment/Plan: Known. 5.9 X 6.2cm Patient has seen a vascular surgeon and opted for no intervention (4) Hypertension Qualifiers: Hypertension type: primary hypertension Qualified Code(s): I10 - Essential (primary) hypertension Assessment/Plan: On lisinopril (5) BPH (benign prostatic hyperplasia) Qualifiers: Lower urinary tract symptom presence: symptoms absent Qualified Code(s): N40.0 - Benign prostatic hyperplasia without lower urinary tract symptoms Assessment/Plan: On tamsulosin (6) Edema of both lower extremities Assessment/Plan: Significantly improved. Currently trace to +1 On lasix 20mg IV daily. 2D echo ordered and pending - Current Meds Current Meds: Current Medications Generic Name Dose Route Start Last Admin Trade Name Freq PRN Reason Stop Dose Admin Acetaminophen 650 mg 09/19/21 09:06 09/20/21 09:14 Acetaminophen 325 Mg Tablet PO 650 mg Q4HR PRN Administration Pain or Fever > 38C (100.4F) Albuterol/Ipratropium 3 ml 09/19/21 02:39 09/23/21 07:11 Ipratropium/Albuterol 3 Ml Neb INH 3 ml Q4HR PRN Administration Wheezing Allopurinol 300 mg 09/19/21 10:00 09/23/21 08:24 Allopurinol 100 Mg Tablet PO 300 mg DAILY KYE Administration Budesonide 0.5 mg 09/19/21 02:39 09/23/21 07:11 Budesonide 0.5 Mg/2 Ml Neb INH 0.5 mg RTBID KYE Administration Docusate Sodium 250 - 500 mg 09/19/21 11:00 09/23/21 08:23 Docusate Sodium 250 Mg Capsule PO 250 mg DAILY KYE Administration Dorzolamide HCl 1 drops 09/21/21 12:00 09/23/21 08:46 Dorzolamide 2% Ophth Drops EACHEYE 1 drops BID KYE Administration Formoterol Fumarate 20 mcg 09/19/21 02:39 09/23/21 07:11 Formoterol Fumarate Neb 20 Mcg/2 Ml INH 20 mcg RTBID KYE Administration Furosemide 20 mg 09/20/21 12:00 09/23/21 08:26 Furosemide 20 Mg/2 Ml Vial IVP 20 mg DAILY KYE Administration Guaifenesin 600 mg 09/19/21 12:05 09/23/21 08:24 Guaifenesin 600 Mg Tablet PO 600 mg BID KYE Administration Ceftriaxone Sodium 2 gm/ 100 mls @ 200 mls/hr 09/20/21 21:00 09/22/21 21:20 Sodium Chloride IV 09/26/21 21:29 Infused HS [facility] Infusion Insulin Aspart 1 - 5 unit 09/19/21 02:39 09/23/21 15:49 Insulin Aspart 300 Unit/3 Ml Pen SUBQ Not Given 0800,1200,1700,2100 [facility] Protocol Latanoprost 1 drops 09/21/21 12:08 09/22/21 20:55 Latanoprost 0.005% Ophth Drops EACHEYE 1 drops QPM KYE Administration Lisinopril 20 mg 09/19/21 10:00 09/23/21 08:24 Lisinopril 20 Mg Tablet PO 20 mg BID KYE Administration Methylprednisolone Sodium Succinate 60 mg 09/20/21 22:00 09/23/21 15:50 Methylprednisolone Succinate 125 Mg/2 Ml Vial IVP Not Given Q8H KYE Nicotine 1 patch 09/19/21 12:47 09/23/21 10:21 Nicotine 14 Mg Patch TOP 1 patch DAILY PRN Administration Nicotine Craving Polyethylene Glycol 17 gm 09/19/21 11:00 09/23/21 08:27 Polyethylene Glycol 3350 17 Gm Packet PO Not Given DAILY KYE Senna 8.6 - 17.2 mg 09/20/21 09:00 09/23/21 08:24 Senna 8.6 Mg Tablet PO 8.6 mg DAILY KYE Administration Sodium Chloride 10 ml 09/19/21 02:39 09/22/21 21:00 Sodium Chloride Flush 0.9% 10 Ml Syringe IVP 10 ml PRN PRN Administration NEEDED PER PROVIDER ORDERS Sodium Chloride 10 ml 09/19/21 02:39 09/23/21 08:26 Sodium Chloride Flush 0.9% 10 Ml Syringe IVP 10 ml 0100,0900,1700 KYE Administration Tamsulosin HCl 0.4 mg 09/19/21 10:30 09/23/21 08:24 Tamsulosin 0.4 Mg Capsule PO 0.4 mg DAILY KYE Administration - Lab Result Fish Bone Diagrams: 09/23/21 06:51 09/23/21 06:51 - Additional Planning My Orders: My Active Orders 09/24/21 05:00 BMP - BASIC METABOLIC PANEL [CHEM] DAILYLAB CBC - COMP BLD CT W/AUTO DIFF [HEME] DAILYLAB 09/25/21 05:00 BMP - BASIC METABOLIC PANEL [CHEM] DAILYLAB CBC - COMP BLD CT W/AUTO DIFF [HEME] DAILYLAB Subjective - Subjective Patient Reports: Other (Resting comfortably in bedside recliner. Reports breathing better than at admission. Improved air movement on auscultation. Wheezing noted. Improved lower extremity edema. On 4L O2 with O2Sat at 94%. Ambulating in room) Objective Vital Signs: Vital Signs - 24 hr 09/22/21 09/22/21 09/22/21 17:30 19:52 23:40 Temperature 36.6 C 36.9 C Heart Rate 104 H Heart Rate [ 92 83 Brachial] Respiratory 22 22 24 Rate Blood Pressure 138/76 H [Left Brachial artery] Blood Pressure 137/79 H [Right Brachial artery] O2 Saturation 94 93 09/23/21 09/23/21 09/23/21 05:11 07:13 08:09 Temperature 36.6 C 37.1 C Heart Rate 94 Heart Rate [ 83 108 H Brachial] Respiratory 20 20 22 Rate Blood Pressure 131/76 H 154/86 H [Left Brachial artery] Blood Pressure [Right Brachial artery] O2 Saturation 92 90 L 09/23/21 09/23/21 09/23/21 08:34 08:35 08:37 Temperature Heart Rate Heart Rate [ Brachial] Respiratory Rate Blood Pressure [Left Brachial artery] Blood Pressure [Right Brachial artery] O2 Saturation 81 L 87 L 84 L 09/23/21 09/23/21 09/23/21 08:38 08:48 10:25 Temperature 37.1 C Heart Rate 100 Heart Rate [ Brachial] Respiratory 20 Rate Blood Pressure [Left Brachial artery] Blood Pressure [Right Brachial artery] O2 Saturation 89 L 92 88 L Oxygen O2 Source Nasal cannula Oxygen Flow Rate 15 I&O (Last 24 Hrs): Intake and Output Totals x24h 09/21/21 09/22/21 09/23/21 23:59 23:59 23:59 Intake Total 1595 1430 360 Output Total 2125 800 400 Balance -530 630 -40 General: Alert, Oriented x3, Mild distress HEENT: PERRLA, EOMI Neck: Supple, No JVD Neuro: Alert, Oriented Times 3 Cardiovascular: Regular rate, No murmurs Respiratory: Chest non-tender, Wheezes, Other (Mild dyspnea) Abdomen: Normal bowel sounds, Soft, No tenderness Extremities: No clubbing, No cyanosis, Other (Trace edema) Skin: No rashes, No breakdown, No significant lesion - Results Results: Laboratory Results WBC 12.6 x10^3/uL (4.8-10.8) H 09/23/21 06:51 RBC 4.95 10^6/uL (4.70-6.10) 09/23/21 06:51 Hgb 16.1 g/dL (14.0-18.0) 09/23/21 06:51 Hct 49.1 % (42.0-52.0) 09/23/21 06:51 MCV 99.2 fL (80.0-94.0) H 09/23/21 06:51 MCH 32.5 pg (27.0-31.0) H 09/23/21 06:51 MCHC 32.8 g/dL (32.0-36.0) 09/23/21 06:51 RDW 13.7 % (12.0-15.0) 09/23/21 06:51 Plt Count 267 10^3/uL (130-450) 09/23/21 06:51 MPV 9.9 fL (7.4-11.4) 09/23/21 06:51 Neut # (Auto) 10.8 10^3/uL (1.5-6.6) H 09/23/21 06:51 Lymph # (Auto) 0.9 10^3/uL (1.5-3.5) L 09/23/21 06:51 [place] # (Auto) 0.7 10^3/uL (0.0-1.0) 09/23/21 06:51 Eos # (Auto) 0.0 10^3/uL (0.0-0.7) 09/23/21 06:51 Baso # (Auto) 0.0 10^3/uL (0.0-0.1) 09/23/21 06:51 Absolute Nucleated RBC 0.00 x10^3/uL 09/23/21 06:51 Nucleated RBC % 0.0 /100WBC 09/23/21 06:51 VBG pH 7.341 (7.31-7.41) 09/19/21 00:32 VBG pCO2 53.7 mmHg (41-51) H 09/19/21 00:32 VBG pO2 43.5 mmHg (25-47) 09/19/21 00:32 VBG HCO3 28.4 mmol/L (23-28) H 09/19/21 00:32 VBG Total CO2 30.0 mmol/L (24-29) H 09/19/21 00:32 VBG O2 Saturation 77.1 % (60-80) 09/19/21 00:32 VBG Base Excess 1.4 mmol/L (-2 - +2) 09/19/21 00:32 Sodium 141 mmol/L (135-145) 09/23/21 06:51 Potassium 4.4 mmol/L (3.5-5.0) 09/23/21 06:51 Chloride 96 mmol/L (101-111) L 09/23/21 06:51 Carbon Dioxide 35 mmol/L (21-32) H 09/23/21 06:51 Anion Gap 10.0 (6-13) 09/23/21 06:51 BUN 27 mg/dL (6-20) H 09/23/21 06:51 Creatinine 0.8 mg/dL (0.6-1.2) 09/23/21 06:51 Estimated GFR (MDRD) 92 (>89) 09/23/21 06:51 Glucose 158 mg/dL (70-100) H 09/23/21 06:51 Lactic Acid 1.0 mmol/L (0.5-2.2) 09/19/21 00:32 Calcium 9.3 mg/dL (8.5-10.3) 09/23/21 06:51 Magnesium 2.2 mg/dL (1.7-2.8) 09/22/21 05:55 Total Bilirubin 1.1 mg/dL (0.2-1.0) H 09/19/21 00:32 AST 32 IU/L (10-42) 09/19/21 00:32 ALT 44 IU/L (10-60) 09/19/21 00:32 Alkaline Phosphatase 104 IU/L (42-121) 09/19/21 00:32 Troponin I High Sens 16.6 ng/L (2.3-19.7) 09/19/21 02:33 B-Natriuretic Peptide 201 pg/mL (5-100) H 09/19/21 03:03 Total Protein 6.8 g/dL (6.7-8.2) 09/19/21 00:32 Albumin 3.7 g/dL (3.2-5.5) 09/19/21 00:32 Globulin 3.1 g/dL (2.1-4.2) 09/19/21 00:32 Albumin/Globulin Ratio 1.2 (1.0-2.2) 09/19/21 00:32 Lipase 19 U/L (22-51) L 09/19/21 00:32 Nasal Adenovirus (PCR) NOT DETECTED 09/19/21 00:13 Nasal B. parapertussis DNA (PCR) NOT DETECTED 09/19/21 00:13 Nasal Coronavir 229E PCR NOT DETECTED 09/19/21 00:13 Nasal Coronavir HKU1 PCR NOT DETECTED 09/19/21 00:13 Nasal Coronavir NL63 PCR NOT DETECTED 09/19/21 00:13 Nasal Coronavir OC43 PCR NOT DETECTED 09/19/21 00:13 Nasal Enterovir/Rhinovir PCR NOT DETECTED 09/19/21 00:13 Nasal Influenza B PCR NOT DETECTED 09/19/21 00:13 Nasal Influenza A PCR NOT DETECTED 09/19/21 00:13 Nasal Parainfluen 1 PCR NOT DETECTED 09/19/21 00:13 Nasal Parainfluen 2 PCR NOT DETECTED 09/19/21 00:13 Nasal Parainfluen 3 PCR DETECTED A 09/19/21 00:13 Nasal Parainfluen 4 PCR NOT DETECTED 09/19/21 00:13 Nasal RSV (PCR) NOT DETECTED 09/19/21 00:13 Nasal Screen MRSA (PCR) NEGATIVE (NEGATIVE) 09/19/21 02:45 Nasal B.pertussis DNA PCR NOT DETECTED 09/19/21 00:13 Nasal C.pneumoniae (PCR) NOT DETECTED 09/19/21 00:13 Sharad Human Metapneumo PCR NOT DETECTED 09/19/21 00:13 Nasal M.pneumoniae (PCR) NOT DETECTED 09/19/21 00:13 Nasal SARS-CoV-2 (PCR) NOT DETECTED 09/19/21 00:13 Sepsis Event Note (H) - Evaluation Current Stage of Sepsis: Sepsis Possible source of Sepsis: positive: Pulmonary - Sepsis Criteria Sepsis Criteria: Recorded Temperature greater than 38.3C or Less than 36C, Respiratory: Increasing oxygen requirements, WBC count greater than 12,000 or less than 4000 ABX Reporting Has patient been on IV antibiotics over the past 48 hours?: Yes
[2021-09-23] MEDS: cefTRIAXone 2 GM in SODIUM CHLORIDE 0.9% MINIBAG 100 ML IV SCH (22:03)
[2021-09-23] MEDS: LATANOPROST 0.005% OPHTH DROPS EACHEYE SCH (22:04)
[2021-09-24] MEDS: SODIUM CHLORIDE FLUSH 0.9% 10 ML SYRINGE IVP PRN ×3 (05:41→14:23)
[2021-09-24] MEDS: methylPREDNISolone SUCCINATE 125 MG/2 ML VIAL IVP SCH (05:41)
[2021-09-24] MEDS: SODIUM CHLORIDE FLUSH 0.9% 10 ML SYRINGE IVP SCH (05:41)
[2021-09-24] MEDS: IPRATROPIUM/ALBUTEROL 3 ML NEB INH PRN (05:55)
[2021-09-24] MEDS: BUDESONIDE 0.5 MG/2 ML NEB INH SCH (05:57)
[2021-09-24] MEDS: FORMOTEROL FUMARATE NEB 20 MCG/2 ML INH SCH (05:57)
[2021-09-24 07:09] LABS: BASOPHILS % (AUTO) 0.3 %; HCT - HEMATOCRIT 49.8 % (42.0-52.0); HGB - HEMOGLOBIN 16.5 g/dL (14.0-18.0); LYMPHOCYTES % (AUTO) 7.3 %; MEAN CORPUSCULAR HEMOGLOBIN 32.4 pg (27.0-31.0); MEAN CORPUSCULAR HGB CONC 33.1 g/dL (32.0-36.0); MEAN CORPUSCULAR VOLUME 97.6 fL (80.0-94.0); MEAN PLATELET VOLUME 10.3 fL (7.4-11.4); MONOCYTES # (AUTO) 0.5 10^3/uL (0.0-1.0); MONOCYTES % (AUTO) 3.5 %; NEUTROPHILS # (AUTO) 11.8 10^3/uL (1.5-6.6); NEUTROPHILS % (AUTO) 87.2 %; PLT - PLATELET COUNT 284 10^3/uL (130-450); RED CELL DISTRIBUTION WIDTH 13.7 % (12.0-15.0); WHITE BLOOD COUNT 13.5 x10^3/uL (4.8-10.8)
[2021-09-24 07:20] LABS: CALCIUM 9.1 mg/dL (8.5-10.3); CREATININE 0.8 mg/dL (0.6-1.2); POTASSIUM 4.1 mmol/L (3.5-5.0)
[2021-09-24] MEDS ORDERED: SACCHAROMYCES BOULARDII 250 MG CAPSULE PO SCH (08:00)
[2021-09-24] MEDS: INSULIN ASPART 300 UNIT/3 ML PEN SUBQ SCH ×2 (08:10→12:00)
[2021-09-24] MEDS: guaiFENesin 600 MG TABLET PO SCH (09:47)
[2021-09-24] MEDS: FUROSEMIDE 20 MG/2 ML VIAL IVP SCH (09:47)
[2021-09-24] MEDS: polyethylene glycoL 3350 17 GM PACKET PO SCH (09:48)
[2021-09-24] MEDS: SENNA 8.6 MG TABLET PO SCH (09:48)
[2021-09-24] MEDS: allopurinoL 100 MG TABLET PO SCH (09:49)
[2021-09-24] MEDS: TAMSULOSIN 0.4 MG CAPSULE PO SCH (09:49)
[2021-09-24] MEDS: lisinopriL 20 MG TABLET PO SCH (09:49)
[2021-09-24] MEDS: DORZOLAMIDE 2% OPHTH DROPS EACHEYE SCH (09:49)
[2021-09-24] MEDS: DOCUSATE SODIUM 250 MG CAPSULE PO SCH (09:49)
[2021-09-24] MEDS: NICOTINE 14 MG PATCH TOP PRN (12:02)
[2021-09-24] MEDS ORDERED: ZINC OXIDE 20% OINT 30 GM TUBE TOP PRN (12:42)
[2021-09-24] MEDS ORDERED: methylPREDNISolone SUCCINATE 40 MG/ML VIAL IVP SCH (14:00)
--- NOTE | 2021-09-24 14:17 | Discharge Plan ---
Discharge Plan Problem Reviewed?: Yes Disposition: Home, Self Care Condition: Stable Prescriptions: cefUROXime axetiL [Ceftin] 500 mg PO Q12H 5 Days #20 tablet predniSONE [Deltasone] 20 mg PO [id number] #8 tab Saccharomyces Boulardii [Florastor] 250 mg PO BIDWM #10 cap Furosemide [Lasix] 20 mg PO DAILY #30 tablet guaiFENesin [Mucinex] 600 mg PO BID PRN #20 tablet PRN Reason: Cough Diet: Regular Activity Restrictions: Activity as Tolerated Shower Restrictions: No (fall precaution) Instruction Topics: Cefuroxime tablets, Prednisone tablets, COPD, Pneumonia, Oxygen Home Use, Quit Smoking Plan, Furosemide tablets Health Concerns: COPD exacerbation and pneumonia, home oxygen Plan of Treatment: You were found to have COPD exacerbation and pneumonia. Strongly advise you quit cigarette smoking. You are prescribed taped Prednisone. Home oxygen is prescribed for you. Please followup RT instruction, and safely use O2 at home. You are also prescribed antibiotics to finish the treatment course for your pneumonia Care Goals: stabilization and improvement of your medical conditions, COPD and pneumonia. Assessment: discussed the care plan with you, answered your questions, you understood. Additional Instructions or Follow Up instructions: You may followup with your PCP in one week, followup with liquor gallery operator as out- pt. Should your symptoms return or worsen, you may present ER or call 911 for help. Follow-Up Care: [facility] - Pulmonary No Smoking: If you smoke, Please STOP! Call for help. Follow-up with: Brent Posada MD [Primary Care Provider] -
--- NOTE | 2021-09-24 14:37 | DISCHARGE SUMMARY ---
Discharge Summary Admit Date: 09/19/21 Discharge Date: 09/24/21 Discharging Provider: Moncho Prince Primary Care Provider: Brent García Condition at Discharge: Stable Discharge Disposition: Home, Self Care Discharge Facility Name: home - DIAGNOSES Discharge Diagnoses with Status of Each Condition: (1) COPD exacerbation stable without acute respiratory distress. pt has hx of advance stage COPD. pt had O2 desat study. Oxygen saturation 86% on room air at rest, Oxygen saturation 87% on 2 LPM at rest, Oxygen saturation 90% on 3 LPM at rest. Oxygen saturation 86% on 3 LPM at ambulating, Oxygen saturation 88% on 4 LPM at ambulating, Oxygen saturation 90% on 5 LPM at ambulating. I am ordering home oxygen 3 LPM at rest, 5 LPM with exertion to treat his COPD and subsequent hypoxemia. pt really hope to be d/c on today. pt still smoke cigarette. pt is not willing to quit cigarette now. But pt is strongly advised to quit Cigarette smoking. pt is prescribed taped prednisone. resume home breath treatment. (2) Community acquired pneumonia stable. pt is prescribed antibiotics to finish the treatment course. (3) AAA (abdominal aortic aneurysm) Patient has seen a vascular surgeon and opted for no intervention. pt declined to have intervention for his AAA at this time admission. (4) Hypertension stable, resume home meds (5) BPH (benign prostatic hyperplasia) stable, resume home meds (6) Edema of both lower extremities Significantly improved. pt is prescribed 20mg Lasix daily. pt had ECHO study 6 months ago which reveals 5-55% EF with RVSP 58 mmHG. we do not have ECHO study until 09/30/21. - HPI History of Present Illness: refer from Dr. Bansal's HPI on 09/19/21 Patient is an 86-year-old male with history significant for arthritis, AAA, BPH, gout, hypertension and COPD who presented to the ED with difficulty in breathing. His symptoms have been going on intermittently for the past month. Today he was unable to walk from the living room to the bathroom and back. As a result of his significant dyspnea he is daughter called EMS. Upon arrival his oxygen saturation was noted to be in the 70s on room air. He does not use oxygen at home. He also had a productive cough. In the ED he was noted to be tachypneic with respiratory rate in the 30s. He had a fever of 38.2 C. His white blood cell count was 15.2. PCO2 on VBG was 53. Chest x-ray showed costophrenic blunting and opacities concerning for pulmonary edema and/or pneumonia. As a result of this findings he was presented for admission for further management At bedside he denied chest pain but reported abdominal pain/heartburn. He denied nausea or vomiting. He appears very disheveled with 3+ lower extremity edema and a protuberant abdomen. - ALLERGIES Allergies/Adverse Reactions: Allergies Allergy/AdvReac Type Severity Reaction Status Date / Time Penicillins Allergy Unknown Verified 09/19/21 00:15 shellfish derived Allergy Unknown Verified 09/19/21 00:15 - MEDICATIONS Home Medications: Ambulatory Orders Medication Instructions Recorded Confirmed Albuterol 2.5 mg INH Q4H PRN 12/28/20 09/19/21 Alfuzosin HCl [Uroxatral] 10 mg PO DAILY 12/28/20 09/19/21 Lisinopril [Zestril] 20 mg PO BID 12/28/20 09/19/21 Meloxicam [Mobic] 15 mg PO DAILY 12/28/20 09/19/21 Mometasone/Formoterol [Dulera 100 4 puffs IH DAILY 12/28/20 09/19/21 Mcg-5 Mcg Inhaler] [place]-3/Dha/Epa/Fish Oil [Fish Oil 1 cap PO DAILY 12/28/20 09/19/21 1,000 mg Softgel] Sennosides/Docusate Sodium [Stool 250 mg PO BID 12/28/20 09/19/21 Softener-Laxative Tablet] Tiotropium Wise [Spiriva] 1 cap PO DAILY 12/28/20 09/19/21 allopurinoL [Zyloprim] 300 mg PO DAILY 12/28/20 09/19/21 cloNIDine [Catapres] 0.1 mg PO BID 12/28/20 09/19/21 Dorzolamide 2% Ophth Drops 1 drops OPTH BID 09/21/21 09/21/21 [Trusopt 2% Ophth Drops] Latanoprost 0.005% Ophth Drops 1 drops OPTH DAILY 09/21/21 09/21/21 [Xalatan Ophth Drops] Furosemide [Lasix] 20 mg PO DAILY #30 tablet 09/24/21 Saccharomyces Boulardii [Florastor] 250 mg PO BIDWM #10 cap 09/24/21 cefUROXime axetiL [Ceftin] 500 mg PO Q12H 5 Days #20 tablet 09/24/21 guaiFENesin [Mucinex] 600 mg PO BID PRN #20 tablet 09/24/21 predniSONE [Deltasone] 20 mg PO [id number] #8 tab 09/24/21 - PHYSICAL EXAM AT DISCHARGE General Appearance: positive: No acute distress, Alert. negative: Lethargic Eyes Bilateral: positive: Normal inspection, No lid inflammation ENT: positive: ENT inspection nml, No signs of dehydration. negative: Purulent nasal drainage Neck: positive: Nml inspection, Trachea midline. negative: Tracheal deviation Respiratory: positive: Chest non-tender, No respiratory distress, Other (Significantly diminished lung sounds bilaterally) Cardiovascular: positive: Regular rate & rhythm. negative: Tachycardia, Bradycardia, Systolic murmur Peripheral Pulses: positive: 2+ Abdomen: positive: Non-tender, Nml bowel sounds, No distention. negative: Tenderness Back: positive: Nml inspection Skin: positive: Color nml, Warm, Dry. negative: Cyanosis Extremities: positive: Non-tender, Full ROM, Nml appearance Neurologic/Psychiatric: positive: Oriented x3, Motor nml, Sensation nml, Mood/affect nml. negative: Weakness, Sensory loss, Facial droop, Slurred/abnml speech, Depressed mood/affect - LABS Result Diagrams: 09/24/21 06:15 09/24/21 06:15 - SEPSIS Current Stage of Sepsis: Sepsis Possible source of Sepsis: Pulmonary Sepsis Criteria: Recorded Temperature greater than 38.3C or Less than 36C, Respiratory: Increasing oxygen requirements, WBC count greater than 12,000 or less than 4000 - FOLLOW UP Follow Up: You were found to have COPD exacerbation and pneumonia. Strongly advise you quit cigarette smoking. You are prescribed taped Prednisone. Home oxygen is prescribed for you. Please followup RT instruction, and safely use O2 at home. You are also prescribed antibiotics to finish the treatment course for your pneumonia. You may followup with your PCP in one week, followup with industrial safety and health technician as out- pt. Should your symptoms return or worsen, you may present ER or call 911 for help. - TIME SPENT Time Spent in Discharge (Minutes): 30
[2021-09-24 16:12] VITALS: BP 140/89
== END 2021-09-24 17:00 | disposition home or self-care (01) | DRG 871 ==
LOC: EDUNIT# → ED 00:05 → ICU 01:54 → ED 02:15 → MS2 15:00
PROVIDERS: ADMIT Internal Medicine; ATTEND Nurse Practitioner Gerontology
DX: A41.9 Sepsis, unspecified organism (principal); J18.9 Pneumonia, unspecified organism; J96.01 Acute respiratory failure with hypoxia; R09.02 Hypoxemia; J44.9 Chronic obstructive pulmonary disease, unspecified; Z20.822 Contact with and (suspected) exposure to COVID-19; J44.1 Chronic obstructive pulmonary disease with (acute) exacerbation; I47.2 Ventricular tachycardia; Z68.42 Body mass index [BMI] 45.0-49.9, adult; I71.4 Abdominal aortic aneurysm, without rupture; I10 Essential (primary) hypertension; N40.0 Benign prostatic hyperplasia without lower urinary tract symptoms; R60.0 Localized edema; F17.210 Nicotine dependence, cigarettes, uncomplicated; M19.90 Unspecified osteoarthritis, unspecified site; M10.9 Gout, unspecified; E66.9 Obesity, unspecified; F17.200 Nicotine dependence, unspecified, uncomplicated; Z86.73 Personal history of transient ischemic attack (TIA), and cerebral infarction without residual deficits; Z79.899 Other long term (current) drug therapy
CPT/HCPCS: 36415; 71045; 80048; 80053; 82803; 83605; 83690; 83735; 83880; 84484; 85025; 87040; 87070; 87150; 87205; 87631; 93005; 94640; 94761; 96365; 96368; 96375; 97116; 97162; 99285; A9270; J7626; 0202U; 83036

== ENCOUNTER 2021-10-22 04:45 | Outpatient (CLI) | payer MEDICARE, OTHER | END 2021-10-22 04:46 | disposition critical access hospital (66) | LOC: EMS 04:45 | DX: R06.00 Dyspnea, unspecified (principal) | CPT/HCPCS: A0425; A0427 ==

== ENCOUNTER 2021-10-22 05:03 | Inpatient (IN) | payer MEDICARE, OTHER ==
[2021-10-22] MEDS ORDERED: IPRATROPIUM/ALBUTEROL 3 ML NEB INH STA (05:39)
--- NOTE | 2021-10-22 05:43 | ED Physician Documentation ---
History of Present Illness - Stated complaint Stated Complaint: SOA - Chief complaint Chief Complaint: Resp - History obtained from History obtained from: Patient - Additonal information Additional information: 86yM with pmh htn, advanced stage copd on 2 to 5L continuous home oxygen, recent admission here for copd/pneumonia last month, denies cardiac history, p/w SOA progressive over past week with acute worsening this morning. denies cough, fever, chest pain. does endorse some chest tightness. o2 sat in the field was in 70s on RA per ems, improving to 90s on 4L nc. patient experienced subjective improvement with albuterol neb provided en route. does endorse NYE, some orthopnea. leg swelling is chronic per patient and he was recently placed on lasix. Note patient was admitted to hospital 1 month ago for advanced stage copd and pneumonia. Review of Systems Ten Systems: 10 systems reviewed and negative Constitutional: reports: Fatigue. denies: Fever, Chills Cardiac: denies: Chest pain / pressure Respiratory: reports: Dyspnea. 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 - Present Medications Home Medications: Ambulatory Orders Medication Instructions Recorded Confirmed Albuterol 2.5 mg INH Q4H PRN 12/28/20 09/19/21 Alfuzosin HCl [Uroxatral] 10 mg PO DAILY 12/28/20 09/19/21 Lisinopril [Zestril] 20 mg PO BID 12/28/20 09/19/21 Meloxicam [Mobic] 15 mg PO DAILY 12/28/20 09/19/21 Mometasone/Formoterol [Dulera 100 4 puffs IH DAILY 12/28/20 09/19/21 Mcg-5 Mcg Inhaler] Allison-3/Dha/Epa/Fish Oil [Fish Oil 1 cap PO DAILY 12/28/20 09/19/21 1,000 mg Softgel] Sennosides/Docusate Sodium [Stool 250 mg PO BID 12/28/20 09/19/21 Softener-Laxative Tablet] Tiotropium [place] [Spiriva] 1 cap PO DAILY 12/28/20 09/19/21 allopurinoL [Zyloprim] 300 mg PO DAILY 12/28/20 09/19/21 cloNIDine [Catapres] 0.1 mg PO BID 12/28/20 09/19/21 Dorzolamide 2% Ophth Drops 1 drops OPTH BID 09/21/21 09/21/21 [Trusopt 2% Ophth Drops] Latanoprost 0.005% Ophth Drops 1 drops OPTH DAILY 09/21/21 09/21/21 [Xalatan Ophth Drops] Furosemide [Lasix] 20 mg PO DAILY #30 tablet 09/24/21 Saccharomyces Boulardii [Florastor] 250 mg PO BIDWM #10 cap 09/24/21 cefUROXime axetiL [Ceftin] 500 mg PO Q12H 5 Days #20 tablet 09/24/21 guaiFENesin [Mucinex] 600 mg PO BID PRN #20 tablet 09/24/21 predniSONE [Deltasone] 20 mg PO [id number] #8 tab 09/24/21 - Allergies Allergies/Adverse Reactions: Allergies Allergy/AdvReac Type Severity Reaction Status Date / Time Penicillins Allergy Unknown Verified 10/22/21 05:56 shellfish derived Allergy Unknown Verified 10/22/21 05:56 - Social History Does the pt smoke?: Yes Smoking Status: Current every day smoker Does the pt drink ETOH?: Yes Does the pt have substance abuse?: No - Immunizations Immunizations are current?: Yes - POLST Patient has POLST: No POLST Status: DNR PD ED PE NORMAL - Vitals Vital signs reviewed: Yes - General General: Alert and oriented X 3, Other (mild to moderate respiratory distress. mild increased wob. ) - HEENT HEENT: Atraumatic, PERRL, EOMI - Neck Neck: Supple, no meningeal sign - Cardiac Cardiac: Other (tachycardic rate, irregular rhythm) - Respiratory Respiratory: Other (BL decreased air entry and end expiratory wheezing) - Abdomen Abdomen: Non tender, Non distended - Derm Derm: Normal color, Warm and dry - Extremities Extremities: Other (1+ BL pitting edema) - Neuro Neuro: Alert and oriented X 3, No motor deficit, No sensory deficit - Psych Psych: Normal mood, Normal affect Results - Vitals Vitals: Vital Signs - 24 hr 10/22/21 10/22/21 10/22/21 05:08 05:24 05:45 Temperature 35.5 C L Heart Rate 108 H 105 H 100 Respiratory 24 25 H 28 H Rate Blood Pressure 119/68 119/68 O2 Saturation 88 L 91 L 10/22/21 10/22/21 10/22/21 06:00 06:59 07:00 Temperature Heart Rate 100 104 H 96 Respiratory 29 H 26 H Rate Blood Pressure 121/70 122/83 H O2 Saturation 93 88 L 10/22/21 07:33 Temperature Heart Rate 91 Respiratory 34 H Rate Blood Pressure 134/93 H O2 Saturation 95 Oxygen O2 Source BIPAP Oxygen Flow Rate 12 - EKG (time done) 0535 Rate: Rate (enter#) (98) Rhythm: Other (irrgular rhythm. low quality study due to patient tremor. does appear to have p waves of varying morphology c/w MAT) - Labs Labs: Laboratory Tests 10/22/21 10/22/21 10/22/21 05:16 05:16 05:16 WBC 10.9 H RBC 4.34 L Hgb 14.2 Hct 43.5 MCV 100.2 H MCH 32.7 H MCHC 32.6 RDW 14.2 Plt Count 325 MPV 10.5 Neut # (Auto) 8.8 H Lymph # (Auto) 0.9 L [place] # (Auto) 1.1 H Eos # (Auto) 0.0 Baso # (Auto) 0.0 Absolute Nucleated RBC 0.00 Nucleated RBC % 0.0 D-Dimer Bld Gas Analysis Time Sample Site ABG pH ABG pCO2 ABG pO2 ABG HCO3 ABG Total CO2 ABG O2 Saturation ABG Base Excess Mauricio Test VBG pH VBG pCO2 VBG pO2 VBG HCO3 VBG Total CO2 VBG O2 Saturation VBG Base Excess O2 Delivery Device FiO2 EPAP IPAP Sodium 141 Potassium 4.1 Chloride 102 Carbon Dioxide 27 Anion Gap 12.0 BUN 18 Creatinine 0.8 Estimated GFR (MDRD) 92 Glucose 124 H Lactic Acid Calcium 8.7 Total Bilirubin 1.7 H AST 31 ALT 22 Alkaline Phosphatase 109 Troponin I High Sens 22.5 H* B-Natriuretic Peptide Total Protein 6.3 L Albumin 2.7 L Globulin 3.6 Albumin/Globulin Ratio 0.8 L Lipase 25 Nasal Adenovirus (PCR) Nasal B. parapertussis DNA (PCR) Nasal Coronavir 229E PCR Nasal Coronavir HKU1 PCR Nasal Coronavir NL63 PCR Nasal Coronavir OC43 PCR Nasal Enterovir/Rhinovir PCR Nasal Influenza B PCR Nasal Influenza A PCR Nasal Parainfluen 1 PCR Nasal Parainfluen 2 PCR Nasal Parainfluen 3 PCR Nasal Parainfluen 4 PCR Nasal RSV (PCR) Nasal B.pertussis DNA PCR Nasal C.pneumoniae (PCR) Sharad Human Metapneumo PCR Nasal M.pneumoniae (PCR) Nasal SARS-CoV-2 (PCR) 10/22/21 10/22/21 10/22/21 05:16 05:16 05:55 WBC RBC Hgb Hct MCV MCH MCHC RDW Plt Count MPV Neut # (Auto) Lymph # (Auto) [place] # (Auto) Eos # (Auto) Baso # (Auto) Absolute Nucleated RBC Nucleated RBC % D-Dimer Bld Gas Analysis Time Sample Site ABG pH ABG pCO2 ABG pO2 ABG HCO3 ABG Total CO2 ABG O2 Saturation ABG Base Excess Mauricio Test VBG pH 7.384 VBG pCO2 50.7 VBG pO2 20.7 L VBG HCO3 29.6 H VBG Total CO2 31.1 H VBG O2 Saturation 35.0 L VBG Base Excess 3.5 H O2 Delivery Device FiO2 EPAP IPAP Sodium Potassium Chloride Carbon Dioxide Anion Gap BUN Creatinine Estimated GFR (MDRD) Glucose Lactic Acid Calcium Total Bilirubin AST ALT Alkaline Phosphatase Troponin I High Sens B-Natriuretic Peptide 285 H Total Protein Albumin Globulin Albumin/Globulin Ratio Lipase Nasal Adenovirus (PCR) NOT DETECTED Nasal B. parapertussis DNA (PCR) NOT DETECTED Nasal Coronavir 229E PCR NOT DETECTED Nasal Coronavir HKU1 PCR NOT DETECTED Nasal Coronavir NL63 PCR NOT DETECTED Nasal Coronavir OC43 PCR NOT DETECTED Nasal Enterovir/Rhinovir PCR NOT DETECTED Nasal Influenza B PCR NOT DETECTED Nasal Influenza A PCR NOT DETECTED Nasal Parainfluen 1 PCR NOT DETECTED Nasal Parainfluen 2 PCR NOT DETECTED Nasal Parainfluen 3 PCR NOT DETECTED Nasal Parainfluen 4 PCR NOT DETECTED Nasal RSV (PCR) NOT DETECTED Nasal B.pertussis DNA PCR NOT DETECTED Nasal C.pneumoniae (PCR) NOT DETECTED Sharad Human Metapneumo PCR NOT DETECTED Nasal M.pneumoniae (PCR) NOT DETECTED Nasal SARS-CoV-2 (PCR) DETECTED A 10/22/21 10/22/21 10/22/21 06:24 06:27 07:12 WBC RBC Hgb Hct MCV MCH MCHC RDW Plt Count MPV Neut # (Auto) Lymph # (Auto) [place] # (Auto) Eos # (Auto) Baso # (Auto) Absolute Nucleated RBC Nucleated RBC % D-Dimer > 1050.0 H Bld Gas Analysis Time 07:24 Sample Site RIGHT RADIAL ABG pH 7.43 ABG pCO2 41 ABG pO2 55 L* ABG HCO3 26.7 H ABG Total CO2 27.9 ABG O2 Saturation 89 L ABG Base Excess 2.2 Mauricio Test POSITIVE VBG pH VBG pCO2 VBG pO2 VBG HCO3 VBG Total CO2 VBG O2 Saturation VBG Base Excess O2 Delivery Device BiPAP FiO2 35.00 EPAP 5 IPAP 12 Sodium Potassium Chloride Carbon Dioxide Anion Gap BUN Creatinine Estimated GFR (MDRD) Glucose Lactic Acid 1.5 Calcium Total Bilirubin AST ALT Alkaline Phosphatase Troponin I High Sens B-Natriuretic Peptide Total Protein Albumin Globulin Albumin/Globulin Ratio Lipase Nasal Adenovirus (PCR) Nasal B. parapertussis DNA (PCR) Nasal Coronavir 229E PCR Nasal Coronavir HKU1 PCR Nasal Coronavir NL63 PCR Nasal Coronavir OC43 PCR Nasal Enterovir/Rhinovir PCR Nasal Influenza B PCR Nasal Influenza A PCR Nasal Parainfluen 1 PCR Nasal Parainfluen 2 PCR Nasal Parainfluen 3 PCR Nasal Parainfluen 4 PCR Nasal RSV (PCR) Nasal B.pertussis DNA PCR Nasal C.pneumoniae (PCR) Sharad Human Metapneumo PCR Nasal M.pneumoniae (PCR) Nasal SARS-CoV-2 (PCR) PD MEDICAL DECISION MAKING - ED course ED course: 86yM p/w acute soa. POCUS of lungs revealed no significant fluid overload and patient has no prior cardiac history therfore suspect copd exacerbation at this time. he was just admitted a month ago for COPD/pneumonia. will treat with nebs, obtain labs/cxr and reevaluate. EKG appears to be MAT but is low quality therefore will repeat. Patient endorsing subjective improvement s/p neb but his work of breathing is increasing. he is on [address] on bipap. Persistent interstitial pneumonia on CXR with interval worsening of left lower airways. patient meets sepsis criteria with tachypnea and hypothermia. will administer antibiotics but withhold fluid bolus for now to avoid excessive overload in this fragile elderly patient. 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 House sup states there is an ICU bed available and a med surg bed opening at 7am. d/w Dr. Silva, hospitalist who is aware of the patient. elevated d-dimer. ABG with low oxygen. will order CTA with suspicion of potential PE. patient verbally told me he would like to be DNR/DNI with limited interventions (conversation witnessed by RN Shabana). AOX3. message left to Dr. Valles, daytime hospitalist. patient endorsed to Dr. Schneider. Departure - Departure Clinical Impression: Severe chronic obstructive pulmonary disease, Pneumonia, Sepsis, Small pleural effusion
[2021-10-22] MEDS ORDERED: IPRATROPIUM/ALBUTEROL 3 ML NEB INH ONE (05:47)
[2021-10-22 05:48] LABS: BASOPHILS % (AUTO) 0.4 %; EOSINOPHILS % (AUTO) 0.4 %; HCT - HEMATOCRIT 43.5 % (42.0-52.0); HGB - HEMOGLOBIN 14.2 g/dL (14.0-18.0); LYMPHOCYTES # (AUTO) 0.9 10^3/uL (1.5-3.5); MEAN CORPUSCULAR HEMOGLOBIN 32.7 pg (27.0-31.0); MEAN CORPUSCULAR HGB CONC 32.6 g/dL (32.0-36.0); MEAN CORPUSCULAR VOLUME 100.2 fL (80.0-94.0); MEAN PLATELET VOLUME 10.5 fL (7.4-11.4); MONOCYTES # (AUTO) 1.1 10^3/uL (0.0-1.0); NEUTROPHILS # (AUTO) 8.8 10^3/uL (1.5-6.6); NEUTROPHILS % (AUTO) 80.1 %; PLT - PLATELET COUNT 325 10^3/uL (130-450); RED BLOOD COUNT 4.34 10^6/uL (4.70-6.10); RED CELL DISTRIBUTION WIDTH 14.2 % (12.0-15.0); WHITE BLOOD COUNT 10.9 x10^3/uL (4.8-10.8)
[2021-10-22 06:02] LABS: VBG BASE EXCESS 3.5 mmol/L (-2 - +2); VBG HCO3 29.6 mmol/L (23-28); VBG PCO2 50.7 mmHg (41-51); VBG PH 7.384 (7.31-7.41); VBG PO2 20.7 mmHg (25-47); VBG TOTAL CO2 31.1 mmol/L (24-29)
[2021-10-22 06:12] LABS: ALBUMIN 2.7 g/dL (3.2-5.5); ALBUMIN/GLOBULIN RATIO 0.8 (1.0-2.2); BILIRUBIN,TOTAL 1.7 mg/dL (0.2-1.0); CALCIUM 8.7 mg/dL (8.5-10.3); CREATININE 0.8 mg/dL (0.6-1.2); POTASSIUM 4.1 mmol/L (3.5-5.0); TOTAL PROTEIN 6.3 g/dL (6.7-8.2)
[2021-10-22] MEDS ORDERED: levoFLOXacin 750 MG/150 ML 750 MG/150 ML BAG IV STA ×2 (06:14→06:19)
[2021-10-22] MEDS ORDERED: CEFEPIME 2 GM in SODIUM CHLORIDE 0.9% MINIBAG 100 ML IV STA (06:19)
[2021-10-22] MEDS ORDERED: VANCOMYCIN INJ 1.25 GM in SODIUM CHLORIDE 0.9% 250 ML IV STA (06:19)
[2021-10-22] MEDS ORDERED: ALBUTEROL NEB 2.5 MG/3 ML INH STA (06:22)
[2021-10-22] MEDS ORDERED: methylPREDNISolone SUCCINATE 125 MG/2 ML VIAL IVP STA (06:22)
[2021-10-22 07:15] LABS: B. PARAPERTUSSIS- RESP PCR PAN NOT DETECTED; B. PERTUSSIS- RESP PCR PANEL NOT DETECTED; C. PNEUMONIAE- RESP PCR PANEL NOT DETECTED; CORONAVIRUS 229E-RESP PCR NOT DETECTED; CORONAVIRUS HKU1-RESP PCR NOT DETECTED; CORONAVIRUS NL63-RESP PCR NOT DETECTED; CORONAVIRUS OC43-RESP PCR NOT DETECTED; HUMAN METAPNEUMOVIRUS NOT DETECTED; INFLUENZA A- RESP PCR PANEL NOT DETECTED; INFLUENZA B - RESP PCR PANEL NOT DETECTED; M. PNEUMONIAE- RESP PCR PANEL NOT DETECTED; PARAINFLUENZA VIRUS 1 NOT DETECTED; PARAINFLUENZA VIRUS 2 NOT DETECTED; PARAINFLUENZA VIRUS 3 NOT DETECTED; PARAINFLUENZA VIRUS 4 NOT DETECTED; RHINOVIRUS/ENTEROVIRUS NOT DETECTED; RSV- RESP PCR PANEL NOT DETECTED
[2021-10-22 07:17] LABS: SARS-CoV-2 -RESP PCR PANEL DETECTED
[2021-10-22] MEDS ORDERED: IOVERSOL 320 100 ML VIAL IVP ONE ×2 (07:19→08:21)
[2021-10-22 07:26] LABS: ABG BASE EXCESS 2.2 mmol/L (-2.0-3.0); ABG HCO3 26.7 mmol/L (22.0-26.0); ABG OXYGEN SATURATION 89 % (94-98); ABG PCO2 41 mmHg (34-45); ABG PH 7.43 (7.35-7.45); ABG TCO2 27.9 MMOL/L (21.0-29.0); ALLEN TEST POSITIVE
[2021-10-22 07:29] LABS: ABG PO2 55 mmHg (80-100)
--- NOTE | 2021-10-22 08:08 | XRAY Report ---
PROCEDURE: Chest 1 View X-Ray INDICATIONS: Chest pain TECHNIQUE: One view of the chest was acquired. COMPARISON: 09/19/2021 FINDINGS: Surgical changes and devices: None. Lungs and pleura: Interstitial markings in both lungs. Patchy bilateral groundglass airspace opacitie s. Small left pleural effusion. Mediastinum: Mediastinal contours appear normal. Heart size is mildly enlarged. Bones and chest wall: No suspicious bony lesions. Overlying soft tissues appear unremarkable. IMPRESSION: Cardiomegaly with findings interstitial and alveolar pulmonary edema. Superimposed infection cannot b e excluded. Reviewed by: Jayme Burnham MD on 10/22/2021 8:07 AM [facility] Approved by: Jayme Burnham MD on 10/22/2021 8:07 AM PST Station ID: [id number]
--- NOTE | 2021-10-22 08:49 | CT Report ---
PROCEDURE: ANGIO CHEST W/WO INDICATIONS: elevated dimer, SOA, cough, hypoxia CONTRAST: IV CONTRAST: Optiray 320 ml: 80 PO CONTRAST: *NO PO CONTRAST TECHNIQUE: After the administration of intravenous contrast, 2 mm axial images were acquired from the pulmonary apices to the posterior costophrenic angles during the arterial phase. In addition, 1 mm lung kernel and 5 mm soft tissue kernel reconstructions were performed. 3-dimensional coronal oblique maximum int ensity projection (MIP) reformats, 8 mm axial MIP, and 5 mm coronal and sagittal MPR reformats were t hen performed through the thorax. For radiation dose reduction, the following was used: automated exp osure control, adjustment of mA and/or kV according to patient size. COMPARISON: None FINDINGS: Image quality: Excellent. Pulmonary arteries: Multiple pulmonary artery filling defects are present within the numerous bilater al segmental and subsegmental pulmonary artery branches. No thrombus within the main right or left pu lmonary arteries or in the main pulmonary trunk. Lungs and pleura: Patchy bilateral groundglass and nearly consolidating airspace opacities. Lobular s eptal thickening throughout both lungs. Emphysematous changes. Mediastinum: And cardiomegaly. No pericardial effusion. Flattening of the interventricular septum. No reflux of contrast material into the hepatic veins. Atherosclerotic calcifications in the coronary a rteries and aorta. Bones and chest wall: No suspicious bony lesions. Ribs and thoracic spine appear intact throughout. No axillary or supraclavicular adenopathy. The thyroid is normal in size and there are no incident al findings. Abdomen: Visualized upper abdominal solid organs appear normal in the early arterial phase of enhanc ement. IMPRESSION: Numerous bilateral pulmonary emboli. Patchy groundglass and consolidative airspace opacities, nonspecific but consistent with provided his tory of COVID-19 pneumonia/pneumonitis. Interlobular septal thickening throughout both lungs may reflect viral infection also, versus pulmona ry edema. Emphysematous changes. Reviewed by: Jayme Burnham MD on 10/22/2021 8:47 AM PST Approved by: Jayme Burnham MD on 10/22/2021 8:47 AM PST Station ID: [id number]
[2021-10-22] MEDS ORDERED: ENOXAPARIN 100 MG/ML SYRINGE SUBQ STA (08:54)
[2021-10-22] MEDS ORDERED: VANCOMYCIN INJ 2 GM in SODIUM CHLORIDE 0.9% 500 ML IV ONE (09:00)
[2021-10-22] MEDS ORDERED: ACETAMINOPHEN 325 MG TABLET PO PRN (09:30)
[2021-10-22] MEDS ORDERED: ONDANSETRON 4 MG/2 ML VIAL IVP PRN (09:30)
[2021-10-22] MEDS ORDERED: oxyCODONE 5 MG TABLET PO PRN (09:30)
[2021-10-22] MEDS ORDERED: ONDANSETRON ODT 4 MG TABLET TL PRN (09:30)
--- NOTE | 2021-10-22 09:45 | ED Physician Documentation ---
ED Addendum - Addendum Addendum: 10/22/21 [id number] male with a history of COPD and pneumonia has tested positive for Covid. At shift change care is turned over to me by Dr. Westbrook. The patient had a CTA of the chest pending and this revealed the Covid pneumonia as well as bilateral pulmonary emboli. The patient is administered a dose of Lovenox in addition to the current therapies including BiPAP and he is admitted into the intensive care unit under the care of Dr. Tracee Valles. CTA chest; Impression: Numerous bilateral pulmonary emboli. Patchy groundglass and consolidative airspace opacities, nonspecific but consistent with provided history of COVID-19 pneumonia/pneumonitis. Intralobular septal thickening throughout both lungs may reflect viral infection also, versus pulmonary edema. Emphysematous changes.
--- NOTE | 2021-10-22 11:04 | PHARMACY PROGRESS NOTE ---
- Best Possible Medication History Admit Date and Time: 10/22/21 0930 Processed by: Nursing Medication History completed: Yes As the person ultimately responsible for medication therapy, providers are able to order a medication from an existing home medication list in [facility] via the "Reconcile Routine" prior to Confirmation of that medication by support specialist. Such practice is discouraged except when the physician, in their clinical judgment, deems that a medical need exists for a medication without regard to previous use.
[2021-10-22] MEDS ORDERED: ALBUTEROL NEB 2.5 MG/3 ML INH PRN (11:55)
[2021-10-22] MEDS ORDERED: NON FORMULARY MED (Remdesivir 200 MG) IVP ONE (11:58)
[2021-10-22] MEDS ORDERED: LACTATED RINGERS 1,000 ML IV SCH (12:00)
[2021-10-22] MEDS: APIXABAN 5 MG TABLET PO SCH ×2 (13:29→20:31)
[2021-10-22] MEDS: CHLORHEXIDINE GLUCONATE 15 ML UDC PO SCH ×2 (13:39→20:29)
[2021-10-22] MEDS ORDERED: REMDESIVIR 100MG VIAL 200 MG in SODIUM CHLORIDE 0.9% 250 ML IV ONE (14:00)
--- NOTE | 2021-10-22 15:17 | HISTORY & PHYSICAL EXAMINATION ---
Chief Complaint - Chief Complaint Chief Complaint: short of breath w cough History of Present Illness - Admitted From Admitted From:: home via EMS - History Obtained From Records Reviewed: [facility] History obtained from: Dr. Schneider and the patient Exam Limitations: short of breath - History of Present Illness HPI Comment/Other: This ginger gentleman was just admitted September 19 with difficulty breathing. He already has chronic COPD and and was not on baseline oxygen. With that admission, he went from being ambulatory, albeit slowly, to not being able to walk across the living room without significant dyspnea on exertion. Upon arrival to his home, EMS found his O2 sats to be 70s on room air. Brought to the ER and he was tachypneic, tachycardic, had a fever 38.2, and white cell count was 15.2. Chest x-ray showed increasing opacity in the left lung. He was felt to be septic and placed on Rocephin and azithromycin. In addition he was treated with Solu-Medrol, duo nebs, and counseled to stop smoking. Because he had edema of the lower extremities, an echo was done to make sure his shortness of breath and hypoxia were not due to congestive heart failure. Echocardiogram done February 2021 was reviewed and had an ejection fraction of 50 to 55% with an elevated RVSP of 58 mmHg. This was compared to a August 2018 echocardiogram that had an ejection fraction of 55 to 60%. Grade 1 diastolic dysfunction. Right ventricular systolic function normal. And RVSP of 34 mmHg. He eventually improved enough on IV steroids, DuoNeb, budesonide and Perforomist and was sent home with supplemental oxygen at discharge. He was identified as having a abdominal aortic aneurysm. That was a known problem and it is 5.9 x 6.2 cm. He has already seen a vascular surgeon and has opted for no intervention. By discharge his leg edema had improved tremendously with Lasix 20 mg IV daily. Although he had an echocardiogram ordered, it was never done because of lack of availability of loss control technician. At discharge, he was 86% saturation on room air. At rest. He needed 3 L to get him up to 90% at rest. When walking he needed to get up to 5 L. He has been tired since going home. Short of breath but felt like he was "the same". Never quite recovering from his last discharge. Spends a lot of time in bed or chair being said entry. Enough that the skin of his buttock was starting to get more tender and red. he thinks it is breaking down, he's not sure since he can't see it. He was seen by his primary care provider September 26. They documented a tapering course of prednisone that was completed. Completed a co urse of cefuroxime. He was using Dulera but did not like using the Spiriva. With that exam his lungs were clear bilaterally but had a moderate reduction of air exchange in all lung sanchez. No accessory use of muscles. Regular rate and rhythm. Trace pedal edema and bilateral lower extremity dermatitis to the mid calves. His Dulera inhaler was increased and they are going to gently recommend that he increase his Spiriva use. He called his primary care provider office on October 21. He seemed to be getting worse. They offered him several options for a visit but the daughter wanted a test to see what he needed for oxygen and they advised him of how to get to the emergency room. He told the ER MD that about 5 days ago he started having increased shortness of breath on top of his chronic shortness of breath. He started increasing the use of his inhalers and they were not helping him. He started feeling like he was "suffocating to " and couldn't lay flat. Cough was worse and phlegm is still copious and no change in color. He denied fever, chills, chest pain, pleuritic pain, back pain, jaw pain. No hemoptysis. He does feel like he has a runny nose and a mild sore throat but nothing severe. His appetite has been off ever since he was in the hospital last month; it really has not improved. There is been no abdominal pain, no diarrhea. He will his legs have been with edema again. He thinks maybe the right foot and right calf are little bit bigger than the left he can tell. But there is been no pain in his legs. He was evaluated by the ER physician and temperature was 35.5. Heart rate 108. Blood pressure 119/68. 88% on room air. He appeared comfortable in that there is no pursed lip breathing and he was able to speak in sentences. But is respiratory rate was 24 and every time he tried to lay him down the gurney he was started to feel panicky and more short of breath with respiratory rate increasing to 28. As such they put him on a nonrebreather, and then BiPAP. The patient stated that BiPAP made him feel so much better. FiO2 was only 35% to bring up his O2 sats. Chest x-ray had cardiomegaly with interstitial findings and alveolar pulmonary edema. Superimposed infection could not be excluded. He had groundglass opacities. D-dimer was elevated so a CT angiogram was done. He had multiple pulmonary artery filling defects present within the numerous bilateral segmental and subsegmental pulmonary artery branches. No thrombus within the main right or the left pulmonary arteries or in the main pulmonary trunk. Patchy bilateral groundglass and nearly consolidating airspace opacities. Lobular septal thickening throughout both lungs. Emphysematous changes. Cardiomegaly was present but no pericardial effusion. Flattening of the interventricular septum. He was Covid positive. History - Past Medical History Cardiovascular: reports: Hypertension, Peripheral Vascular Disease (documented w duplex done w eval for AAA), Pulmonary embolism, Angina (cp resulted in adenosin nuc med 07/2007 and neg. ), Other (ascending aorta dilation. Saw MD Ty an no surgery. Then had AAA 02/2021 n seen by MD Bertha. Does not want intervention after opinion with vascular surgeons.) Respiratory: reports: COPD, Emphysema, Pneumonia, Shortness of breath Neuro: reports: CVA, Other (Gait ataxia/falls due to vestibular/neuropathy/leg weakness/leg edema) Endocrine/Autoimmune: reports: Other (glucose intolerance w/o need for meds. ) GI: reports: Colon polyps, Chronic constipation : reports: Benign prostate hypertrophy (With retention), Other (Renal mass found on MRI for back 11/2011. Fu US shows cysts. 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 Mom of stroke in her 80s. 7 children are healthy he states. 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 He lives at home with his daughter. in 2010. He has 7 kids. He has been smoking cigarettes sinc e the age of 19. up to 1 ppd. He is was down to 5 cigarettes daily and had to stop bc of O2 at home since August. He consumes alcohol regularly. Mostly beer. He denies any recreational substance use. He gets around using a walker. - Substance History Use: Uses substance without health or social issues: Alcohol (2-3 beers a night) Abuse: Recurrent use of substance despite neg consequences: NONE, Other (tobacco) Dependence: Experiences withdrawal or developed tolerances: NONE - POLST Patient has POLST: Yes POLST Status: DNR (POLST in PCP office) Meds/Allgy - Home Medications Home Medications: Ambulatory Orders Medication Instructions Recorded Confirmed Albuterol 2.5 mg INH Q4H PRN 12/28/20 10/22/21 Alfuzosin HCl [Uroxatral] 10 mg PO DAILY 12/28/20 10/22/21 Lisinopril [Zestril] 20 mg PO BID 12/28/20 10/22/21 Meloxicam [Mobic] 15 mg PO DAILY 12/28/20 10/22/21 Mometasone/Formoterol [Dulera 100 2 puffs IH BID 12/28/20 10/22/21 Mcg-5 Mcg Inhaler] [place]-3/Dha/Epa/Fish Oil [Fish Oil 1 cap PO DAILY 12/28/20 10/22/21 1,000 mg Softgel] Sennosides/Docusate Sodium [Stool 250 mg PO BID 12/28/20 10/22/21 Softener-Laxative Tablet] Tiotropium [place] [Spiriva] 1 cap PO DAILY 12/28/20 10/22/21 allopurinoL [Zyloprim] 300 mg PO DAILY 12/28/20 10/22/21 cloNIDine [Catapres] 0.1 mg PO BID 12/28/20 10/22/21 Dorzolamide 2% Ophth Drops 1 drops EACHEYE BID 09/21/21 10/22/21 [Trusopt 2% Ophth Drops] Latanoprost 0.005% Ophth Drops 1 drops EACHEYE DAILY 09/21/21 10/22/21 [Xalatan Ophth Drops] Furosemide [Lasix] 20 mg PO DAILY #30 tablet 09/24/21 10/22/21 predniSONE [Deltasone] 20 mg PO [id number] #8 tab 09/24/21 10/22/21 - Allergies Allergies/Adverse Reactions: Allergies Allergy/AdvReac Type Severity Reaction Status Date / Time Penicillins Allergy Unknown Verified 10/22/21 05:56 shellfish derived Allergy Unknown Verified 10/22/21 05:56 Review of Systems - Constitutional Constitutional: reports: Fatigue, Malaise, Poor appetite - Eyes Eyes: denies: Pain, Irritation, Amaurosis - Ears, Nose & Throat Ears, Nose & Throat: reports: Hearing loss, Vertigo, Nasal obstruction, Nasal congestion, Postnasal drainage, Sore throat - Cardiovascular Cariovascular: reports: Edema, Exertional dyspnea (NYE by 2012. Walking only 50 feet only by 2018. EF 55 to 60%. Dilated aortic root 4.1 cm. Walking 15 feet 08/2021.), Decr. exercise tolerance. denies: Irregular heart rate, Palpitations , Chest pain, Syncope - Respiratory Respiratory: reports: Cough (Daily cough started around 2008 and is continued. In the last 2 months considerably worse.), Sputum production (Started getting bad last month and really has not let up.), Wheezing, Orthopnea (On the last 3 days), SOB at rest, SOB with exertion (08/2018 @ rest 02 sat 90, w walking 89%, 2 l rx'd). denies: Hemoptysis, Pleuritic pain - Gastrointestinal Gastrointestinal: reports: Constipation. denies: Abdominal pain, Abdominal distention, Diarrhea, Change in bowel habits, Black stools, Bloody stools, Nausea, Vomiting - Genitourinary Genitourinary: reports: Frequency (And hesitancy), Urgency, Incontinence, Noctur ia. denies: Dysuria - Musculoskeletal Musculoskeletal: reports: Back pain, Gout, Joint pain (Mainly in hips and lower back. Really started getting him down around 2010) - Neurological Neurological: reports: Numbness (In his feet and legs mainly at night but they do not bother him enough to hinder his sleep), Memory problems Prior Level of Functionality: Because of his smoking, he has had increasing cough, increasing dyspnea on exertion. He started needing a little bit of oxygen. But felt that his cough and phlegm production were stable. Back and hips also hurt. He has significant spinal stenosis and osteoarthritis. All of this was tolerable with decreased mobility but since August 2021 his endurance is markedly diminished mainly due to COPD and hypoxia. He also has a problem healing his calf ulcers from PAD. Exam - Vital Signs Reviewed Vital Signs: Yes Vital Signs: Vital Signs x48h Temp Pulse Pulse Resp BP BP Pulse Ox 10/22/21 14:00 94 26 H 143/111 H 93 10/22/21 13:00 90 30 H 129/91 H 97 10/22/21 12:54 91 24 147/100 H 97 10/22/21 12:00 92 20 124/89 H 98 10/22/21 11:30 36.3 C L 86 28 H 137/96 H 99 10/22/21 11:29 84 10/22/21 11:00 86 26 H 135/93 H 98 10/22/21 10:30 82 26 H 127/83 H 98 10/22/21 10:17 90 10/22/21 10:00 83 27 H 130/86 H 97 10/22/21 09:00 97 25 H 133/92 H 95 10/22/21 08:10 92 28 H 133/88 H 97 10/22/21 07:33 91 34 H 134/93 H 95 - Physical Exam General Appearance: positive: Alert, Mild distress (Feels short of breath but BiPAP has helped him "a lot" and he is sitting up at about 45 degrees and comfortable. Able to complete full sentences.), Other (Elderly gentleman, mildly diminished hearing, unshaven for a few days) Eyes Bilateral: positive: PERRL, EOMI ENT: positive: No signs of dehydration Neck: positive: No JVD. negative: Stiff neck Respiratory: positive: Other (no wheezing but severe prolonged end exhalation phase w poor air excursion enough to not hear breath sounds). negative: Wheezes, Rales, Rhonchi Cardiovascular: positive: Regular rate & rhythm, Systolic murmur. negative: Gallop/S4, Friction rub Peripheral Pulses: positive: 0 Abdomen: positive: Non-tender, No organomegaly, Nml bowel sounds, No distention Skin: positive: Warm, Dry, Pallor, Other (feet are not cold. thick skin, leathery, multiple SK of face and scalp) Extremities: positive: Full ROM, Pedal edema (L foot is a ball of edema, R foot 50% less), Other (no acute effusions) Neurologic/Psychiatric: positive: Oriented x3, CN's nml (2-12), Motor nml. negative: Sensation nml (can't feel light touch of toes and feet to tops of feet) Conclusion/Plan - Problem List (1) Acute respiratory failure with hypoxia Conclusion/Plan: This gentleman already has chronic respiratory failure due to COPD/centrilobular emphysema. He was given 2 L nasal cannula a few years ago but has never really used it. When he was admitted in August I think that that was not really recognize. We just noted that he did not take oxygen. He was discharged on anywhere between 3 to 5 L. With current COPD exacerbation and Covid infection, he has decompensated and now needs BiPAP. He is a DO NOT RESUSCITATE with a POLST form that is already in his PCP office. He is willing to do BiPAP. Plan: Inpatient status ICU bed BiPAP Treat underlying emphysema and Covid infection to support the patient through this current acute episode (2) COPD exacerbation Conclusion/Plan: He is already on long-acting bronchodilators. Mainly beta agonist. He does not like Spiriva. And has not been using it very much. Plan: Decadron 6 mg is already being used for Covid Resume Perforomist and budesonide Fixed schedule of DuoNeb Albuterol as needed Secretion control and will order Acapella/incentive spirometry Mucinex Palliative Care consult (3) COVID-19 Conclusion/Plan: Groundglass opacities, interstitial infiltrate. Acute on chronic hypoxia. Patient has been vaccinated Plan: Remdesivir for 5 days Decadron for 10 days (4) Pulmonary emboli Conclusion/Plan: Due to sedentary status. In the past has been treated as "venous stasis" but I think the patient has peripheral vascular disease is arterial. Ulcers have been in the calves. Is already been treated in the medical ambulatory clinic in the past. Plan: Eliquis 10 mg p.o. twice daily Qualifiers: Pulmonary embolism type: multiple subsegmental (without acute cor pulmonale) Qualified Code(s): I26.94 - Multiple subsegmental pulmonary emboli without acute cor pulmonale (5) BPH (benign prostatic hyperplasia) Conclusion/Plan: , Chronic, long-term problem. Already having symptoms of retention in the ICU and unable to void. Plan: Holly insertion Flomax Qualifiers: Lower urinary tract symptom presence: symptoms absent Qualified Code(s): N40.0 - Benign prostatic hyperplasia without lower urinary tract symptoms (6) Continuous dependence on cigarette smoking Conclusion/Plan: He smoked anywhere from 2/3 to 1 pack/day since the age of 19. He is now age 86. Will order 7 mg patch for nicotine dependence. (7) Hypertension Conclusion/Plan: At home he uses clonidine tablets, lisinopril 20 twice daily. Those will be resumed. Qualifiers: Hypertension type: primary hypertension Qualified Code(s): I10 - Essential (primary) hypertension (8) Glucose intolerance (impaired glucose tolerance) Conclusion/Plan: In review of his medical chart, he has a history of glucose intolerance. With his last admission of inhaled steroids, he did well and did not need much management of glucose. However I will be giving him IV Decadron. We will start him on sliding scale insulin. If needed I will add Lantus. (9) AAA (abdominal aortic aneurysm) Conclusion/Plan: He was already at criteria that would require surgery. However when he was evaluated by vascular surgery at [facility], there was significant risk associated with repair of either a sending aorta or abdominal aorta. The patient was clear in discussion with the vascular surgeon that he did not want intervention. Risk was quoted at 8 to 10 %/year of rupture. Qualifiers: Presence of rupture: without rupture Qualified Code(s): I71.4 - Abdominal aortic aneurysm, without rupture (10) Glaucoma Conclusion/Plan: I have ordered his eyedrops from home to be brought in. Our pharmacy does not stock them. Qualifiers: Glaucoma type: unspecified (11) Difficult intravenous access Conclusion/Plan: I have asked anesthesia to come place a PICC line in this ginger man. Nursing already has one IV in them but they are finding it difficult to get a second IV and after numerous sticks. I anticipate this patient being her for several days. - Lab Results Lab results reviewed: Yes Eliecer Bones: 10/22/21 05:16 10/22/21 05:16 - Diagnostic Imaging Results Diagnostic Imaging Results: positive: Final report reviewed - EKG Results EKG Interpreted Independently: No Core Measures - Anticipated LOS I expect patient to be DC'd or transferred within 96 hours.: Yes - DVT/VTE - Prophylaxis VTE/DVT Device ordered at admit?: Yes
--- NOTE | 2021-10-22 17:21 | CONSULTATION NOTE ---
Consultation Report: consult for PICC line placement. Consent obtained. Pt prepped and draped in sterile fashion. Unsuccessful PICC line placement after bilateral attempts. Pt requested to "take a break". Procedure aborted. Dr Valles notified. Declined need for immediate CVL placement, and will reassess for PICC line placement next day. 2 PIVs started to provide increased venous access: #22g R forearm, #20g R hand. Both IVs aspirated and flushed with 10ccNS easily. RN and MD updated.
[2021-10-22] MEDS: INSULIN ASPART 300 UNIT/3 ML PEN SUBQ SCH ×2 (17:51→20:28)
[2021-10-22] MEDS: SODIUM CHLORIDE FLUSH 0.9% 10 ML SYRINGE IVP SCH ×2 (17:53→23:42)
[2021-10-22] MEDS: ZINC OXIDE 20% OINT 30 GM TUBE TOP PRN ×2 (17:56→23:43)
[2021-10-22] MEDS: FORMOTEROL FUMARATE NEB 20 MCG/2 ML INH SCH (19:02)
[2021-10-22] MEDS: IPRATROPIUM/ALBUTEROL 3 ML NEB INH SCH ×2 (19:02)
[2021-10-22] MEDS: DORZOLAMIDE 2% OPHTH DROPS EACHEYE SCH (20:28)
[2021-10-22] MEDS: LATANOPROST 0.005% OPHTH DROPS EACHEYE SCH (20:28)
[2021-10-22] MEDS: lisinopriL 20 MG TABLET PO SCH (20:30)
[2021-10-22] MEDS: TAMSULOSIN 0.4 MG CAPSULE PO SCH (20:30)
[2021-10-22] MEDS: cloNIDine 0.1 MG TABLET PO SCH (20:31)
[2021-10-23] MEDS: SODIUM CHLORIDE FLUSH 0.9% 10 ML SYRINGE IVP PRN (03:29)
[2021-10-23 05:37] LABS: BASOPHILS % (AUTO) 0.2 %; CALCIUM, IONIZED 1.17 mmol/L (1.15-1.33); EOSINOPHILS % (AUTO) 0.1 %; HCT - HEMATOCRIT 38.7 % (42.0-52.0); HGB - HEMOGLOBIN 12.8 g/dL (14.0-18.0); MEAN CORPUSCULAR HEMOGLOBIN 32.9 pg (27.0-31.0); MEAN CORPUSCULAR HGB CONC 33.1 g/dL (32.0-36.0); MEAN CORPUSCULAR VOLUME 99.5 fL (80.0-94.0); MEAN PLATELET VOLUME 10.8 fL (7.4-11.4); MONOCYTES % (AUTO) 9.2 %; NEUTROPHILS # (AUTO) 8.8 10^3/uL (1.5-6.6); NEUTROPHILS % (AUTO) 80.1 %; PLT - PLATELET COUNT 284 10^3/uL (130-450); RED BLOOD COUNT 3.89 10^6/uL (4.70-6.10); RED CELL DISTRIBUTION WIDTH 14.2 % (12.0-15.0); VBG PH 7.395 (7.31-7.41)
[2021-10-23 05:49] LABS: CALCIUM 8.3 mg/dL (8.5-10.3); CREATININE 0.6 mg/dL (0.6-1.2); MAGNESIUM 1.9 mg/dL (1.7-2.8); PHOSPHORUS 3.1 mg/dL (2.5-4.6); POTASSIUM 3.4 mmol/L (3.5-5.0)
[2021-10-23] MEDS: IPRATROPIUM/ALBUTEROL 3 ML NEB INH SCH ×4 (07:44→21:15)
[2021-10-23] MEDS: FORMOTEROL FUMARATE NEB 20 MCG/2 ML INH SCH ×2 (07:44→21:15)
[2021-10-23] MEDS ORDERED: POTASSIUM CHLORIDE 20 MEQ TABLET PO ONE (08:00)
[2021-10-23] MEDS: DORZOLAMIDE 2% OPHTH DROPS EACHEYE SCH ×2 (08:48→20:51)
[2021-10-23] MEDS: polyethylene glycoL 3350 17 GM PACKET PO SCH (08:48)
[2021-10-23] MEDS: CHLORHEXIDINE GLUCONATE 15 ML UDC PO SCH ×2 (08:49→20:52)
[2021-10-23] MEDS: SENNA 8.6 MG TABLET PO SCH (08:50)
[2021-10-23] MEDS: allopurinoL 100 MG TABLET PO SCH (08:50)
[2021-10-23] MEDS: APIXABAN 5 MG TABLET PO SCH ×2 (08:51→20:49)
[2021-10-23] MEDS: lisinopriL 20 MG TABLET PO SCH ×2 (08:52→20:50)
[2021-10-23] MEDS: cloNIDine 0.1 MG TABLET PO SCH ×2 (08:52→20:50)
[2021-10-23] MEDS: DEXAMETHASONE 10 MG/ML VIAL IVP SCH (08:53)
[2021-10-23] MEDS: SODIUM CHLORIDE FLUSH 0.9% 10 ML SYRINGE IVP SCH ×3 (08:53→23:30)
[2021-10-23] MEDS: INSULIN ASPART 300 UNIT/3 ML PEN SUBQ SCH ×4 (08:58→20:23)
[2021-10-23] MEDS ORDERED: REMDESIVIR 100MG VIAL 100 MG in SODIUM CHLORIDE 0.9% 250 ML IV SCH (09:00)
[2021-10-23] MEDS: CHOLECALCIFEROL 25 MCG TABLET PO SCH (10:31)
--- NOTE | 2021-10-23 14:17 | ANESTHESIA PROCEDURE NOTE ---
Anesth Central Line Template - Central Line Central Line Preparation: Consent Obtained, Time out completed, Ultrasound used, Sterile prep and drape Central line location: Right Basilic Central line type: PICC Double Lumen Central line catheter tip site resides: Superior vena cava (SVC) Central line aftercare: Secured, Placement confirmed, No pneumothorax, No complications, Bundle checklist complete, Pt tolerated well Other Info/Details: 5FR Dual, PICC placed @R basilic v. Cath cut at 44, threaded to hub. Ports easily aspirate and flush with caps x2, secured with statlock and tegaderm.
--- NOTE | 2021-10-23 14:53 | XRAY Report ---
PROCEDURE: Chest for Line Placement INDICATIONS: new PICC@R basilic v. TECHNIQUE: One view of the chest was acquired. COMPARISON: 10/22/2021, 09/19/2021 FINDINGS: Surgical changes and devices: There is a right upper extremity PICC line with tip extending into the superior vena cava. Lungs and pleura: The left lung base is incompletely included on the current study. There is a parti ally visualized small left pleural effusion with left basilar confluent opacities consistent with con solidation or atelectasis. Additional patchy bilateral airspace opacities are also redemonstrated bhakti aterally consistent with history of Covid 19 pneumonia. There is persistent pulmonary edema. No evide nce of pneumothorax. Mediastinum: Mediastinal contours appear unchanged. Heart size appears enlarged. Bones and chest wall: No suspicious bony lesions. Overlying soft tissues appear unremarkable. IMPRESSION: 1. PICC line tip projects over the superior vena cava. 2. Persistent patchy bilateral airspace opacities consistent with history of Covid 19 pneumonia. 3. Incompletely visualized left lung base with a persistent small left pleural effusion partially vis ualized as well as associated passive atelectasis or consolidation. 4. Persistent pulmonary edema. Reviewed by: Irvin Ray MD on 10/23/2021 2:51 PM PST Approved by: Irvin Ray MD on 10/23/2021 2:51 PM PST Station ID: [id number]
--- NOTE | 2021-10-23 17:39 | PROVIDER PROGRESS NOTE ---
Subjective - Prog Note Date Prog Note Date: 10/23/21 Prog Note Time: 17:37 - Subjective Pt reports feeling: Improved Subjective: He really feels like he is stable as long as he uses BiPAP. But at the same time he likes to take it off because he wants to eat breakfast lunch and dinner. O2 sats drop off of BiPAP and we need to increase of FiO2 to maintain an O2 sat of 90%. But once he is back on BiPAP, FiO2 drops anywhere between 45 to 65%. And his O2 sat stayed above 92%. When he is off BiPAP, high flow nasal cannula is at about 45 L. Cough is not severe. But use of accessory muscles comes and goes when off the BiPAP. No new phlegm production. COST REPORT CLERK attempted a PICC line yesterday for close to 2 hours without success. As such a different COST REPORT CLERK tried today and was able to put in a central line. Current Medications - Current Medications Current Medications: Active Medications Acetaminophen (Acetaminophen 325 Mg Tablet) 650 mg PO Q4HR PRN PRN Reason: Pain 1 to 4 Albuterol (Albuterol Neb 2.5 Mg/3 Ml) 2.5 mg INH Q4H PRN PRN Reason: Wheezing Albuterol/Ipratropium (Ipratropium/Albuterol 3 Ml Neb) 3 ml INH RTQID [facility] Last Admin: 10/23/21 15:43 Dose: 3 ml Allopurinol (Allopurinol 100 Mg Tablet) 300 mg PO DAILY [facility] Last Admin: 10/23/21 08:50 Dose: 300 mg Apixaban (Apixaban 5 Mg Tablet) 10 mg PO BID [facility] Last Admin: 10/23/21 08:51 Dose: 10 mg Chlorhexidine Gluconate (Chlorhexidine Gluconate 15 Ml Udc) 15 ml PO BID [facility] Last Admin: 10/23/21 08:49 Dose: 15 ml Cholecalciferol (Cholecalciferol 25 Mcg Tablet) 50 mcg PO DAILY [facility] Last Admin: 10/23/21 10:31 Dose: Not Given Clonidine HCl (Clonidine 0.1 Mg Tablet) 0.1 mg PO BID [facility] Last Admin: 10/23/21 08:52 Dose: 0.1 mg Dexamethasone (Dexamethasone 10 Mg/Ml Vial) 6 mg IVP DAILY [facility] Last Admin: 10/23/21 08:53 Dose: 6 mg Dorzolamide HCl (Dorzolamide 2% Ophth Drops) 1 drops EACHEYE BID [facility] Last Admin: 10/23/21 08:48 Dose: 1 drops Formoterol Fumarate (Formoterol Fumarate Neb 20 Mcg/2 Ml) 20 mcg INH RTBID [facility] Last Admin: 10/23/21 07:44 Dose: 20 mcg Remdesivir 100 mg/ Sodium (Chloride) 250 mls @ 500 mls/hr IV DAILY [facility] Stop: 10/26/21 09:29 Last Infusion: 10/23/21 10:35 Dose: Infused Insulin Aspart (Insulin Aspart 300 Unit/3 Ml Pen) 1 - 9 unit SUBQ 0800,1200,1700,2100 [facility]; Protocol Last Admin: 10/23/21 15:23 Dose: Not Given Latanoprost (Latanoprost 0.005% Ophth Drops) 1 drops EACHEYE QPM [facility] Last Admin: 10/22/21 20:28 Dose: 1 drops Lisinopril (Lisinopril 20 Mg Tablet) 20 mg PO BID [facility] Last Admin: 10/23/21 08:52 Dose: 20 mg Multi-Ingredient Ointment (Zinc Oxide 20% Oint 30 Gm Tube) 1 applic TOP PRN PRN PRN Reason: Skin Care Last Admin: 10/22/21 23:43 Dose: 1 applic Ondansetron HCl (Ondansetron Odt 4 Mg Tablet) 4 mg TL Q6HR PRN PRN Reason: Nausea / Vomiting Ondansetron HCl (Ondansetron 4 Mg/2 Ml Vial) 4 mg IVP Q6HR PRN PRN Reason: Nausea / Vomiting Oxycodone HCl (Oxycodone 5 Mg Tablet) 5 mg PO Q4HR PRN PRN Reason: Pain 5 to 7 Polyethylene Glycol (Polyethylene Glycol 3350 17 Gm Packet) 17 gm PO DAILY [facility] Last Admin: 10/23/21 08:48 Dose: 17 gm Senna (Senna 8.6 Mg Tablet) 8.6 - 17.2 mg PO DAILY [facility] Last Admin: 10/23/21 08:50 Dose: 8.6 mg Sodium Chloride (Sodium Chloride Flush 0.9% 10 Ml Syringe) 10 ml IVP 0100,0900,1700 [facility] Last Admin: 10/23/21 08:53 Dose: 10 ml Sodium Chloride (Sodium Chloride Flush 0.9% 10 Ml Syringe) 10 ml IVP PRN PRN PRN Reason: NEEDED PER PROVIDER ORDERS Last Admin: 10/23/21 03:29 Dose: 10 ml Tamsulosin HCl (Tamsulosin 0.4 Mg Capsule) 0.4 mg PO QPM [facility] Last Admin: 10/22/21 20:30 Dose: 0.4 mg Albuterol 2.5 mg INH Q4H PRN 12/28/20 Alfuzosin HCl [Uroxatral] 10 mg PO DAILY 12/28/20 Lisinopril [Zestril] 20 mg PO BID 12/28/20 Meloxicam [Mobic] 15 mg PO DAILY 12/28/20 Mometasone/Formoterol [Dulera 100 Mcg-5 Mcg Inhaler] 2 puffs IH BID 12/28/20 Barton-3/Dha/Epa/Fish Oil [Fish Oil 1,000 mg Softgel] 1 cap PO DAILY 12/28/20 Sennosides/Docusate Sodium [Stool Softener-Laxative Tablet] 250 mg PO BID 12/28/20 Tiotropium [place] [Spiriva] 1 cap PO DAILY 12/28/20 allopurinoL [Zyloprim] 300 mg PO DAILY 12/28/20 cloNIDine [Catapres] 0.1 mg PO BID 12/28/20 Dorzolamide 2% Ophth Drops [Trusopt 2% Ophth Drops] 1 drops EACHEYE BID 09/21/21 Latanoprost 0.005% Ophth Drops [Xalatan Ophth Drops] 1 drops EACHEYE DAILY 09/21/21 Objective - Vital Signs/Intake & Output Reviewed Vital Signs: Yes Vital Signs: Vital Signs Temp Pulse Resp BP Pulse Ox 10/23/21 17:00 36.9 C 97 32 H 123/81 H 95 Intake & Output: Intake & Output 10/20/21 10/21/21 10/22/21 10/23/21 23:59 23:59 23:59 23:59 Intake Total 8441.725 0613.333 Output Total 857 965 Balance 232.433 0437.333 - Objective General Appearance: positive: Alert, Other (On BiPAP, this gentleman can hear me, and responds appropriately. Full sentences. Off BiPAP start to use accessory muscles, sentences come down to 1-2 words, and he starts to get anxious.) Eyes Bilateral: positive: PERRL, EOMI ENT: positive: No signs of dehydration Neck: positive: No JVD. negative: Stiff neck Respiratory: positive: Rhonchi, Other (Yesterday his lungs were with severely diminished air excursion. Lungs were silent. Today quite a bit of rhonchi, good air movement, and he is pleased to show me that "look, I can take a deep br eath". But then that is followed by a cough.) Cardiovascular: positive: Regular rate & rhythm. negative: Gallop/S4, Friction rub Abdomen: positive: Non-tender, No organomegaly, Nml bowel sounds, No distention Skin: positive: Warm, Dry Extremities: positive: Full ROM, No pedal edema Neurologic/Psychiatric: positive: Oriented x3, CN's nml (2-12), Motor nml - Lab Results Fish Bones: 10/23/21 04:34 10/23/21 04:34 Other Labs: Lab Results x24hrs 10/23/21 10/23/21 10/23/21 Range/Units 04:34 04:34 04:34 WBC 11.0 H (4.8-10.8) x10^3/uL RBC 3.89 L (4.70-6.10) 10^6/uL Hgb 12.8 L (14.0-18.0) g/dL Hct 38.7 L (42.0-52.0) % MCV 99.5 H (80.0-94.0) fL MCH 32.9 H (27.0-31.0) pg MCHC 33.1 (32.0-36.0) g/dL RDW 14.2 (12.0-15.0) % Plt Count 284 (130-450) 10^3/uL MPV 10.8 (7.4-11.4) fL Neut # (Auto) 8.8 H (1.5-6.6) 10^3/uL Lymph # (Auto) 1.0 L (1.5-3.5) 10^3/uL [place] # (Auto) 1.0 (0.0-1.0) 10^3/uL Eos # (Auto) 0.0 (0.0-0.7) 10^3/uL Baso # (Auto) 0.0 (0.0-0.1) 10^3/uL Absolute Nucleated RBC 0.00 x10^3/uL Nucleated RBC % 0.0 /100WBC D-Dimer (200.0-255.0) ng/mL VBG pH 7.395 (7.31-7.41) Ionized Calcium 1.17 (1.15-1.33) mmol/L Sodium 140 (135-145) mmol/L Potassium 3.4 L (3.5-5.0) mmol/L Chloride 106 (101-111) mmol/L Carbon Dioxide 26 (21-32) mmol/L Anion Gap 8.0 (6-13) BUN 21 H (6-20) mg/dL Creatinine 0.6 (0.6-1.2) mg/dL Estimated GFR (MDRD) 128 (>89) Glucose 124 H (70-100) mg/dL Calcium 8.3 L (8.5-10.3) mg/dL Phosphorus 3.1 (2.5-4.6) mg/dL Magnesium 1.9 (1.7-2.8) mg/dL Nasal Screen MRSA (PCR) (NEGATIVE) 10/23/21 10/22/21 Range/Units 04:34 13:45 WBC (4.8-10.8) x10^3/uL RBC (4.70-6.10) 10^6/uL Hgb (14.0-18.0) g/dL Hct (42.0-52.0) % MCV (80.0-94.0) fL MCH (27.0-31.0) pg MCHC (32.0-36.0) g/dL RDW (12.0-15.0) % Plt Count (130-450) 10^3/uL MPV (7.4-11.4) fL Neut # (Auto) (1.5-6.6) 10^3/uL Lymph # (Auto) (1.5-3.5) 10^3/uL [place] # (Auto) (0.0-1.0) 10^3/uL Eos # (Auto) (0.0-0.7) 10^3/uL Baso # (Auto) (0.0-0.1) 10^3/uL Absolute Nucleated RBC x10^3/uL Nucleated RBC % /100WBC D-Dimer > 1050.0 H (200.0-255.0) ng/mL VBG pH (7.31-7.41) Ionized Calcium (1.15-1.33) mmol/L Sodium (135-145) mmol/L Potassium (3.5-5.0) mmol/L Chloride (101-111) mmol/L Carbon Dioxide (21-32) mmol/L Anion Gap (6-13) BUN (6-20) mg/dL Creatinine (0.6-1.2) mg/dL Estimated GFR (MDRD) (>89) Glucose (70-100) mg/dL Calcium (8.5-10.3) mg/dL Phosphorus (2.5-4.6) mg/dL Magnesium (1.7-2.8) mg/dL Nasal Screen MRSA (PCR) NEGATIVE (NEGATIVE) Assessment/Plan - Problem List (1) Acute respiratory failure with hypoxia Impression: This gentleman already has chronic respiratory failure due to COPD/centrilobular emphysema. He was given 2 L nasal cannula a few years ago but has never really used it. When he was admitted in August I think that that was not really recognized. We just noted that he did not take oxygen. He was discharged from the August admission on anywhere between 3 to 5 L. With current COPD exacerbation and Covid infection, he has decompensated and now needs BiPAP. He is a DO NOT RESUSCITATE with a POLST form that is already in his PCP office. He is willing to do BiPAP. Plan: BiPAP to continue for now. Treat underlying emphysema and Covid infection to support the patient through this current acute episode (2) COPD exacerbation Conclusion/Plan: He is already on long-acting bronchodilators. Mainly beta agonist. He does not like Spiriva. And has not been using it very much. Plan: Decadron 6 mg is already being used for Covid Continue Perforomist and budesonide Fixed schedule of DuoNeb Albuterol as needed Secretion control and will order Acapella/incentive spirometry Mucinex Palliative Care consult called for today. She may be able to see him tomorrow. (3) COVID-19 Conclusion/Plan: Groundglass opacities, interstitial infiltrate. Acute on chronic hypoxia. Patient has been vaccinated Plan: Remdesivir for 5 days, Day #2/5 Decadron for 10 days Day #2 (4) Pulmonary emboli Conclusion/Plan: Due to sedentary status. In the past has been treated as "venous stasis" but I think the patient has peripheral vascular disease is arterial. Ulcers have been in the calves. Is already been treated in the medical ambulatory clinic in the past. Plan: Eliquis 10 mg p.o. twice daily Qualifiers: Pulmonary embolism type: multiple subsegmental (without acute cor pulmonale) Qualified Code(s): I26.94 - Multiple subsegmental pulmonary emboli without acute cor pulmonale (5) BPH (benign prostatic hyperplasia) Conclusion/Plan: Chronic, long-term problem. Already having symptoms of retention in the ICU and unable to void. Plan: Holly insertion Day #2 Flomax Qualifiers: Lower urinary tract symptom presence: symptoms absent Qualified Code(s): N40.0 - Benign prostatic hyperplasia without lower urinary tract symptoms (6) Continuous dependence on cigarette smoking Conclusion/Plan: He smoked anywhere from 2/3 to 1 pack/day since the age of 19. He is now age 86. Will order 7 mg patch for nicotine dependence. (7) Hypertension Conclusion/Plan: At home he uses clonidine tablets, lisinopril 20 twice daily. Those will be resumed. Qualifiers: Hypertension type: primary hypertension Qualified Code(s): I10 - Essential (primary) hypertension (8) Glucose intolerance (impaired glucose tolerance) Conclusion/Plan: In review of his medical chart, he has a history of glucose intolerance. With his last admission of inhaled steroids, he did well and did not need much management of glucose. However I will be giving him IV Decadron. I started him on sliding scale insulin. If needed I will add Lantus. Yesterday glucose was 200, 151 Today: 101, 142, 132 No new orders. (9) AAA (abdominal aortic aneurysm) Conclusion/Plan: He was already at criteria that would require surgery. However when he was evaluated by vascular surgery at [facility], and [facility], there was significant risk associated with repair of either a sending aorta or abdominal aorta. The patient was clear in discussion with the vascular surgeon that he did not want intervention. Risk was quoted at 8 to 10 %/year of rupture. Qualifiers: Presence of rupture: without rupture Qualified Code(s): I71.4 - Abdominal aortic aneurysm, without rupture (10) Glaucoma Conclusion/Plan: I have ordered his eyedrops from home to be brought in. Our pharmacy does not stock them. Qualifiers: Glaucoma type: unspecified (11) Difficult intravenous access Conclusion/Plan: I have asked anesthesia to come place a PICC line in this ginger man. Unable to place yesterday and central line done today. (12) sacral pressure ulcers present on admission and photos document red, pink skin, warm to touch, flaking. RN to follow protocol
[2021-10-23] MEDS: NICOTINE 7 MG PATCH TOP SCH (19:51)
[2021-10-23] MEDS: ZINC OXIDE 20% OINT 30 GM TUBE TOP PRN (20:05)
[2021-10-23] MEDS: TAMSULOSIN 0.4 MG CAPSULE PO SCH (20:50)
[2021-10-23] MEDS: LATANOPROST 0.005% OPHTH DROPS EACHEYE SCH (20:51)
[2021-10-24 03:53] LABS: BASOPHILS % (AUTO) 0.2 %; EOSINOPHILS % (AUTO) 0.1 %; HCT - HEMATOCRIT 39.3 % (42.0-52.0); HGB - HEMOGLOBIN 12.8 g/dL (14.0-18.0); LYMPHOCYTES # (AUTO) 1.1 10^3/uL (1.5-3.5); LYMPHOCYTES % (AUTO) 9.9 %; MEAN CORPUSCULAR HEMOGLOBIN 31.4 pg (27.0-31.0); MEAN CORPUSCULAR HGB CONC 32.6 g/dL (32.0-36.0); MEAN CORPUSCULAR VOLUME 96.3 fL (80.0-94.0); MEAN PLATELET VOLUME 10.2 fL (7.4-11.4); MONOCYTES # (AUTO) 1.1 10^3/uL (0.0-1.0); MONOCYTES % (AUTO) 9.7 %; NEUTROPHILS # (AUTO) 8.8 10^3/uL (1.5-6.6); NEUTROPHILS % (AUTO) 78.8 %; PLT - PLATELET COUNT 247 10^3/uL (130-450); RED BLOOD COUNT 4.08 10^6/uL (4.70-6.10); RED CELL DISTRIBUTION WIDTH 14.1 % (12.0-15.0); WHITE BLOOD COUNT 11.2 x10^3/uL (4.8-10.8)
[2021-10-24] MEDS: SODIUM CHLORIDE FLUSH 0.9% 10 ML SYRINGE IVP PRN ×6 (03:55→19:55)
[2021-10-24 04:00] LABS: CALCIUM, IONIZED 1.16 mmol/L (1.15-1.33); VBG PH 7.423 (7.31-7.41)
[2021-10-24 04:06] LABS: CALCIUM 8.2 mg/dL (8.5-10.3); CREATININE 0.7 mg/dL (0.6-1.2); PHOSPHORUS 2.7 mg/dL (2.5-4.6); POTASSIUM 3.6 mmol/L (3.5-5.0)
[2021-10-24] MEDS: ZINC OXIDE 20% OINT 30 GM TUBE TOP PRN ×2 (05:14→20:14)
[2021-10-24] MEDS ORDERED: POTASSIUM CHLORIDE 20 MEQ TABLET PO ONE (07:00)
[2021-10-24] MEDS: IPRATROPIUM/ALBUTEROL 3 ML NEB INH SCH ×4 (07:40→18:00)
[2021-10-24] MEDS: FORMOTEROL FUMARATE NEB 20 MCG/2 ML INH SCH ×2 (07:40→18:00)
[2021-10-24] MEDS: INSULIN ASPART 300 UNIT/3 ML PEN SUBQ SCH ×4 (07:50→20:02)
[2021-10-24] MEDS: SODIUM CHLORIDE FLUSH 0.9% 10 ML SYRINGE IVP SCH ×3 (07:52→19:55)
[2021-10-24] MEDS: MORPHINE 2 MG/ML CARPUJECT IVP PRN ×7 (08:20→20:05)
[2021-10-24] MEDS: DEXAMETHASONE 10 MG/ML VIAL IVP SCH (08:25)
[2021-10-24] MEDS: NICOTINE 7 MG PATCH TOP SCH (08:29)
[2021-10-24] MEDS: REMDESIVIR 100MG VIAL 100 MG in SODIUM CHLORIDE 0.9% 100ML 100 ML IV SCH (09:15)
[2021-10-24] MEDS: cloNIDine 0.1 MG TABLET PO SCH ×2 (09:45→20:02)
[2021-10-24] MEDS: SENNA 8.6 MG TABLET PO SCH (09:48)
[2021-10-24] MEDS: APIXABAN 5 MG TABLET PO SCH ×2 (09:49→20:02)
[2021-10-24] MEDS: allopurinoL 100 MG TABLET PO SCH (09:50)
[2021-10-24] MEDS: lisinopriL 20 MG TABLET PO SCH ×2 (09:51→20:13)
[2021-10-24] MEDS: CHOLECALCIFEROL 25 MCG TABLET PO SCH (09:51)
[2021-10-24] MEDS: polyethylene glycoL 3350 17 GM PACKET PO SCH (09:54)
[2021-10-24] MEDS: DORZOLAMIDE 2% OPHTH DROPS EACHEYE SCH ×2 (09:54→20:01)
[2021-10-24] MEDS: CHLORHEXIDINE GLUCONATE 15 ML UDC PO SCH ×2 (10:00→20:02)
[2021-10-24] MEDS ORDERED: CALCIUM CHLORIDE 1,000 MG in SODIUM CHLORIDE 0.9% 50 ML IV ONE (11:08)
--- NOTE | 2021-10-24 13:06 | CONSULTATION NOTE ---
Palliative Care Consultation - Referral Referring Provider: Dr. Tracee Valles Time of Visit: Referral setting: Hospitalized patient Referral Reason: Covid/COPD/Goals of Care - Information Sources Records reviewed: RN notes reviewed, Previous records reviewed History/Review of Systems obtained from: Patient, Family (spoke with daughter Mel) Exam limitations: Clinical condition (patient with fatigued with respiratory effort) - History of Present Illness Brief History of Present Illness: This is a ginger 86-year-old gentleman who was admitted after several days of increased shortness of breath, with diagnosis of acute respiratory failure with hypoxia, due to COPD/centrilobular emphysema, COPD exacerbation, Covid 19, and pulmonary emboli on 10/22. Patient presents as both fatigued emotionally and phys ically, has been in ICU, with difficulty remaining off BiPAP. He is working very hard with respiratory effort, is currently on 100% at 45 L, has been on Bipap for support. Patient has requested DN AR/DNI and is appropriately concerned regarding his continued respiratory status. Patient has been a long- term smoker, but has done fairly well up to when he was admitted end of August with exacerbation of his COPD. Patient does have significant underlying health issues, including a AAA, longstanding COPD/emphysema, AAA at criteria that would require surgery, HTN and hx of CVA. Patient reports he had been preparing for ongoing decline and is not surprised, but was hoping to have some time with his family, though does not perceive his current quality of life given his previous level of functioning as acceptable. He does understand his expected recovery is quite tenuous at this time. Medical/Surgical History - Past Medical History Cardiovascular: reports: Hypertension, Peripheral Vascular Disease (documented w duplex done w eval for AAA), Pulmonary embolism, Angina (cp resulted in adenosin nuc med 07/2007 and neg. ), Other (ascending aorta dilation. Saw MD Ty an no surgery. Then had AAA 02/2021 n seen by MD Bertha. 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 ) GI: reports: Colon polyps, Chronic constipation : reports: Benign prostate hypertrophy (With retention), Other (Renal mass found on MRI for back 11/2011. Fu US shows cysts. 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), Other (Basal cell carcinoma on face, Venous stasis dermatitis) MRSA Hx?: No - Past Surgical History General: reports: Colonoscopy (September 2005, hyperplastic and adenomatous polyps), Other (Umbilical hernia 1979, left inguinal hernia 1979) Ortho: reports: Arthroscopic surgery (knee), Other /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 CANER: reports: Other - Substance History Use: Uses substance without health or social issues: Alcohol (2-3 beers a night) Abuse: Recurrent use of substance despite neg consequences: NONE, Other (tobacco) Dependence: Experiences withdrawal or developed tolerances: NONE Social History - Living Situation Living Situation: With family Family History - Family History Family History: Mother: , CVA/TIA, Father: , Alzheimer's Disease, Other family: Alive and Well (has 7 children) Medications/Allergies - Medications Active Medication List: Active Medications Acetaminophen (Acetaminophen 325 Mg Tablet) 650 mg PO Q4HR PRN PRN Reason: Pain 1 to 4 Albuterol (Albuterol Neb 2.5 Mg/3 Ml) 2.5 mg INH Q4H PRN PRN Reason: Wheezing Albuterol/Ipratropium (Ipratropium/Albuterol 3 Ml Neb) 3 ml INH RTQID [facility] Last Admin: 10/24/21 11:58 Dose: 3 ml Allopurinol (Allopurinol 100 Mg Tablet) 300 mg PO DAILY [facility] Last Admin: 10/24/21 09:50 Dose: 300 mg Apixaban (Apixaban 5 Mg Tablet) 10 mg PO BID [facility] Last Admin: 10/24/21 09:49 Dose: 10 mg Chlorhexidine Gluconate (Chlorhexidine Gluconate 15 Ml Udc) 15 ml PO BID [facility] Last Admin: 10/24/21 10:00 Dose: 15 ml Cholecalciferol (Cholecalciferol 25 Mcg Tablet) 50 mcg PO DAILY [facility] Last Admin: 10/24/21 09:51 Dose: 50 mcg Clonidine HCl (Clonidine 0.1 Mg Tablet) 0.1 mg PO BID [facility] Last Admin: 10/24/21 09:45 Dose: 0.1 mg Dexamethasone (Dexamethasone 10 Mg/Ml Vial) 6 mg IVP DAILY [facility] Last Admin: 10/24/21 08:25 Dose: 6 mg Dorzolamide HCl (Dorzolamide 2% Ophth Drops) 1 drops EACHEYE BID [facility] Last Admin: 10/24/21 09:54 Dose: 1 drops Formoterol Fumarate (Formoterol Fumarate Neb 20 Mcg/2 Ml) 20 mcg INH RTBID [facility] Last Admin: 10/24/21 07:40 Dose: 20 mcg Remdesivir 100 mg/ Sodium (Chloride) 100 mls @ 200 mls/hr IV DAILY [facility] Stop: 10/26/21 09:29 Last Infusion: 10/24/21 09:45 Dose: Infused Insulin Aspart (Insulin Aspart 300 Unit/3 Ml Pen) 1 - 9 unit SUBQ 0800,1200,1700,2100 [facility]; Protocol Last Admin: 10/24/21 12:07 Dose: 1 unit Latanoprost (Latanoprost 0.005% Ophth Drops) 1 drops EACHEYE QPM [facility] Last Admin: 10/23/21 20:51 Dose: 1 drops Lisinopril (Lisinopril 20 Mg Tablet) 20 mg PO BID [facility] Last Admin: 10/24/21 09:51 Dose: 20 mg Morphine Sulfate (Morphine 2 Mg/Ml Carpuject) 2 mg IVP Q2HR PRN PRN Reason: PAIN Last Admin: 10/24/21 12:25 Dose: 2 mg Multi-Ingredient Ointment (Zinc Oxide 20% Oint 30 Gm Tube) 1 applic TOP PRN PRN PRN Reason: Skin Care Last Admin: 10/24/21 05:14 Dose: 1 applic Nicotine (Nicotine 7 Mg Patch) 1 patch TOP DAILY [facility] Last Admin: 10/24/21 08:29 Dose: 1 patch Ondansetron HCl (Ondansetron Odt 4 Mg Tablet) 4 mg TL Q6HR PRN PRN Reason: Nausea / Vomiting Ondansetron HCl (Ondansetron 4 Mg/2 Ml Vial) 4 mg IVP Q6HR PRN PRN Reason: Nausea / Vomiting Oxycodone HCl (Oxycodone 5 Mg Tablet) 5 mg PO Q4HR PRN PRN Reason: Pain 5 to 7 Polyethylene Glycol (Polyethylene Glycol 3350 17 Gm Packet) 17 gm PO DAILY [facility] Last Admin: 10/24/21 09:54 Dose: Not Given Senna (Senna 8.6 Mg Tablet) 8.6 - 17.2 mg PO DAILY [facility] Last Admin: 10/24/21 09:48 Dose: 8.6 mg Sodium Chloride (Sodium Chloride Flush 0.9% 10 Ml Syringe) 10 ml IVP 0100,0900,1700 [facility] Last Admin: 10/24/21 07:52 Dose: 10 ml Sodium Chloride (Sodium Chloride Flush 0.9% 10 Ml Syringe) 10 ml IVP PRN PRN PRN Reason: NEEDED PER PROVIDER ORDERS Last Admin: 10/24/21 12:25 Dose: 10 ml Sodium Chloride (Sodium Chloride Flush 0.9% 10 Ml Syringe) 20 ml IVP PRN PRN PRN Reason: After Blood Draw Tamsulosin HCl (Tamsulosin 0.4 Mg Capsule) 0.4 mg PO QPM [facility] Last Admin: 10/23/21 20:50 Dose: 0.4 mg Albuterol 2.5 mg INH Q4H PRN 12/28/20 Alfuzosin HCl [Uroxatral] 10 mg PO DAILY 12/28/20 Lisinopril [Zestril] 20 mg PO BID 12/28/20 Meloxicam [Mobic] 15 mg PO DAILY 12/28/20 Mometasone/Formoterol [Dulera 100 Mcg-5 Mcg Inhaler] 2 puffs IH BID 12/28/20 Atlantic-3/Dha/Epa/Fish Oil [Fish Oil 1,000 mg Softgel] 1 cap PO DAILY 12/28/20 Sennosides/Docusate Sodium [Stool Softener-Laxative Tablet] 250 mg PO BID 12/28/20 Tiotropium [place] [Spiriva] 1 cap PO DAILY 12/28/20 allopurinoL [Zyloprim] 300 mg PO DAILY 12/28/20 cloNIDine [Catapres] 0.1 mg PO BID 12/28/20 Dorzolamide 2% Ophth Drops [Trusopt 2% Ophth Drops] 1 drops EACHEYE BID 09/21/21 Latanoprost 0.005% Ophth Drops [Xalatan Ophth Drops] 1 drops EACHEYE DAILY 09/21/21 - Allergies Allergies/Adverse Reactions: Allergies Allergy/AdvReac Type Severity Reaction Status Date / Time merbromin Allergy Rash Verified 10/22/21 18:54 [From Mercurochrome] Penicillins Allergy Unknown Verified 10/22/21 05:56 shellfish derived Allergy Unknown Verified 10/22/21 05:56 clopidogrel [From Plavix] AdvReac Cramps Verified 10/22/21 18:55 Review of Systems - Constitutional Constitutional: reports: Fatigue, Weakness, Poor appetite, Weight loss - Eyes Eyes: reports: Vision loss - Ears, Nose & Throat Ears, Nose & Throat: reports: Hearing loss, Hoarseness, Dry mouth - Cardiovascular Cardiovascular: reports: Exertional dyspnea, Decr. exercise tolerance. denies: Chest pain - Respiratory Respiratory: reports: Cough, Orthopnea, SOB at rest, SOB with exertion - Gastrointestinal Gastrointestinal: reports: Bloating, Poor appetite, Early satiety - Genitourinary Genitourinary: reports: Other (currently has bautista cathetr) - Musculoskeletal Musculoskeletal: reports: Muscle aches, Stiffness, Limited range of motion, Muscle weakness, Other (bed bound) - Integumentary Integumentary: reports: Dryness, Other (pressure wound) - Neurological Neurological: reports: General weakness - Psychiatric Psychiatric: reports: Anxiety - Hematologic/Lymphatic Hematologic/Lymph: reports: Recurrent infections (recently hospitalized with CAP) - All Other Systems All Other Systems: reports: Other (limited given patients fatigue level) Physical Exam - Vital Signs Vital Signs: Vital Signs x48h Temp Pulse Pulse Resp BP Pulse Ox 10/24/21 12:00 93 24 120/72 96 10/24/21 11:59 93 38 H 10/24/21 11:00 96 36 H 119/73 94 10/24/21 10:15 88 10/24/21 10:00 36.9 C 109 H 40 H 127/78 88 L 10/24/21 09:35 92 10/24/21 09:00 102 H 31 H 128/75 97 10/24/21 08:00 105 H 40 H 115/73 98 10/24/21 07:40 92 33 H 10/24/21 07:00 90 37 H 119/77 93 10/24/21 06:00 82 27 H 122/87 H 93 10/24/21 05:00 79 16 112/86 H 95 - Physical Exam General Appearance: positive: Moderate distress (with respiratory effort; on FI02) Eyes Bilateral: negative: Conjunctivae nml (eyes reddened) ENT: positive: Dry mucous membranes Neck: positive: Trachea midline Cardiovascular: positive: Regular rate & rhythm Respiratory: negative: No respiratory distress (respiratory effort with any conversation) Abdomen: positive: Soft, Obese Skin: positive: Dryness, Pressure wound Extremities: positive: Other (laying in bed) Neurologic/Psychiatric: positive: Oriented x3, Weakness, Depressed mood/affect Palliative Care - POLST Patient has POLST: Yes POLST Status: DNR Pain: No pain Feelings of wellbeing/Perceived Quality of Life: Poor, Worsening - Palliative Care Discussion: Patient with significant fatigue related to respiratory effort. We did discuss patient's concerns and priorities. Patient reports currently does perceive himself as deteriorating, is not afraid of dying, is uncertain and as far as how this transition is going to go. We did discuss in the context of his respiratory support he needs right now, even if he wanted to transition home would be very difficult in the context of keeping him comfortable. He would like to we discussed how long he would like to trial further support and intervention, he would like to revisit this daily, but currently may be 2 to 3 days. He reports he is not afraid if his end-of-life is coming, but would like to be with his children. We did discuss for him to transition home on hospice he would need less oxygen requirements, but we could certainly if he took a turn for the worse bring his family in and transition to comfort measures for comfortable and respectful here at the hospital. Patient is quite frail, we did discuss hospice care in the home, and what that would look like. I suspect given patient's downward trajectory over the last several weeks and specifically over the last several days, patient would be transitioning to end-of-life care even if stabilized out. Patient is not with any appetite, eating only small amounts, respiratory effort is significant, is doing better with the morphine for relief of air hunger, he is quite weak. He is also concerned about not returning back to his previous level of independence, does not want to be a burden on his family. He is struggling with his orin in the context of letting go or withdrawing treatment, we did discuss in the context of this what allowing natural looks like. He reports he has been talking to his daughters about going home, would like me to follow-up and speak with them.Patient presents with poor prognosis, has multiple comorbidities, has had both functional decline at baseline from his COPD, and now presents within a month of a previous hospitalization and community-acquired pneumonia. He is requiring significant amount of respiratory support, and is both emotionally and physically exhausted. I did speak with his daughter Mel, she does understand he is quite frail, she is more than willing to bring him home. We discussed difficulties at this point in time with his respiratory support needs, and to be able to keep him comfortable. In the context of what is possible at home, he would need to be on 10 to 12 L, and currently requires BiPAP and significant liter flow when off BiPAP. She reports there are 7 siblings, all would be willing to provide support and help patient transition home with hospice. Counseling provided regarding hospice as far as services provided, and goals would be comfort focused. This would be in alignment with father's current goals, and they do see him with loss of independence that this would not be considered quality of life. They are in agreement also if patient were to take a "turn for the worse", I would want him transition to comfort measures. They very much would like to be able to support him both emotionally and physically, we did discuss I would follow-up with the supervisors, given patient's poor prognosis, currently would be able to converse with his family, unclear how long this would be possible, recommended allow family in to be able to provide support and possibly say their goodbyes. Permission was granted for family visits, related to patient's grave situation, they will be allowed to visit at most 2 at a time, and not return. They are quite grateful for the possibility of being able to provide their father ongoing support both emotionally and are willing to take him home on hospice when and if this is possible. Results - Lab Results Lab results reviewed: Yes Fish Bones: 10/24/21 03:30 10/24/21 11:13 Lab and Imaging Results: Lab Results x24hrs 10/24/21 10/24/21 10/24/21 Range/Units 11:13 03:30 03:30 WBC 11.2 H (4.8-10.8) x10^3/uL RBC 4.08 L (4.70-6.10) 10^6/uL Hgb 12.8 L (14.0-18.0) g/dL Hct 39.3 L (42.0-52.0) % MCV 96.3 H (80.0-94.0) fL MCH 31.4 H (27.0-31.0) pg MCHC 32.6 (32.0-36.0) g/dL RDW 14.1 (12.0-15.0) % Plt Count 247 (130-450) 10^3/uL MPV 10.2 (7.4-11.4) fL Neut # (Auto) 8.8 H (1.5-6.6) 10^3/uL Lymph # (Auto) 1.1 L (1.5-3.5) 10^3/uL [place] # (Auto) 1.1 H (0.0-1.0) 10^3/uL Eos # (Auto) 0.0 (0.0-0.7) 10^3/uL Baso # (Auto) 0.0 (0.0-0.1) 10^3/uL Absolute Nucleated RBC 0.00 x10^3/uL Nucleated RBC % 0.0 /100WBC D-Dimer (200.0-255.0) ng/mL VBG pH 7.423 H (7.31-7.41) Ionized Calcium 1.16 (1.15-1.33) mmol/L Sodium (135-145) mmol/L Potassium 4.0 (3.5-5.0) mmol/L Chloride (101-111) mmol/L Carbon Dioxide (21-32) mmol/L Anion Gap (6-13) BUN (6-20) mg/dL Creatinine (0.6-1.2) mg/dL Estimated GFR (MDRD) (>89) Glucose (70-100) mg/dL Calcium (8.5-10.3) mg/dL Phosphorus (2.5-4.6) mg/dL Magnesium (1.7-2.8) mg/dL 25-OH Vitamin D Total (30-100) ng/mL 10/24/21 10/24/21 10/22/21 Range/Units 03:30 03:30 05:16 WBC (4.8-10.8) x10^3/uL RBC (4.70-6.10) 10^6/uL Hgb (14.0-18.0) g/dL Hct (42.0-52.0) % MCV (80.0-94.0) fL MCH (27.0-31.0) pg MCHC (32.0-36.0) g/dL RDW (12.0-15.0) % Plt Count (130-450) 10^3/uL MPV (7.4-11.4) fL Neut # (Auto) (1.5-6.6) 10^3/uL Lymph # (Auto) (1.5-3.5) 10^3/uL [place] # (Auto) (0.0-1.0) 10^3/uL Eos # (Auto) (0.0-0.7) 10^3/uL Baso # (Auto) (0.0-0.1) 10^3/uL Absolute Nucleated RBC x10^3/uL Nucleated RBC % /100WBC D-Dimer > 1050.0 H (200.0-255.0) ng/mL VBG pH (7.31-7.41) Ionized Calcium (1.15-1.33) mmol/L Sodium 137 (135-145) mmol/L Potassium 3.6 (3.5-5.0) mmol/L Chloride 102 (101-111) mmol/L Carbon Dioxide 27 (21-32) mmol/L Anion Gap 8.0 (6-13) BUN 25 H (6-20) mg/dL Creatinine 0.7 (0.6-1.2) mg/dL Estimated GFR (MDRD) 107 (>89) Glucose 116 H (70-100) mg/dL Calcium 8.2 L (8.5-10.3) mg/dL Phosphorus 2.7 (2.5-4.6) mg/dL Magnesium 2.0 (1.7-2.8) mg/dL 25-OH Vitamin D Total 22 L (30-100) ng/mL Impression and Recommendations - Palliative Care Impression: This is a ginger 86-year-old gentleman who unfortunately presents with COPD exac erbation, acute on chronic respiratory failure, COVID pneumonia, pulmonary emboli, and worsening respiratory status. Palliative care meeting with patient to elicit goals of care, in the face of his worsening status, and identifying transition plan. Recommendations/Counseling Done: 1. Advanced care planning. Patient with multiple comorbidities, COVID-19 pneumonia, COPD exacerbation, respiratory failure, with functional decline, recent hospitalization, and weight loss presents with concerns for further decline. Patient admits to fatiguing both emotionally and physically, reports he is ready to but was hoping to be able to transition home. Patient's goals at this time are to do a time trial of 2 to 3 days and see how he fares, at any point patient would want to be transition to comfort measures if he continues to deteriorate, does not want to suffocate or a difficult . He is very much wanting to see his family as his family are much wanting to see him. They are very supportive of patient transitioning to hospice and/or comfort care. They would like to bring him home and meet those wishes. At this point in time it is a [id number], but if patient able to decrease reliance on BiPAP, could consider transitioning home to hospice when oxygen needs are closer to 10 to 12 L, and patient is comfortable. Family counseled as well as patient on what hospice would look like in the transition home, also aware patient is quite tenuous and may transition here at the hospital. Recommend allow family support both emotionally for patient and for his seven children to be able to provide an opportunity to express anticipatory grief as well as provide ability to continue the conversation on goals. Palliative care continue to follow, have given hospice a heads up, patient still in acute phase, that has many risk factors that are of concern for poor prognostic outcome.. 90 minutes was given 50% of this done in counseling regarding goals of care, counseling with daughter regarding goals of care and patient's wishes, coordination of care with hospitalist and hospitalist team as well as follow-up with membership coordinator.
--- NOTE | 2021-10-24 13:19 | PROVIDER PROGRESS NOTE ---
Subjective - Prog Note Date Prog Note Date: 10/24/21 Prog Note Time: 13:20 - Subjective Pt reports feeling: Worse Subjective: He is frightened. He was so relieved, the first day he was here. The BiPAP helped him breathe. In the sense of slowly suffocating to was alleviated. But in the last 24 hours he is very dependent on BiPAP. He initially was able to take it off to eat. We were able to get him on high flow nasal cannula the first 24 hours and up to the first 36 hours. That was so he could eat. Then get him back to BiPAP. Last night and today we cannot do that. He is too short of breath. He is starting to wonder if "is this the end". He would like to go home to if that is true. Even with BiPAP struggling and using accessory muscles. In the meantime we continue to treat his Covid pneumonia status, COPD exacerbation. Current Medications - Current Medications Current Medications: Active Medications Acetaminophen (Acetaminophen 325 Mg Tablet) 650 mg PO Q4HR PRN PRN Reason: Pain 1 to 4 Albuterol (Albuterol Neb 2.5 Mg/3 Ml) 2.5 mg INH Q4H PRN PRN Reason: Wheezing Albuterol/Ipratropium (Ipratropium/Albuterol 3 Ml Neb) 3 ml INH RTQID [facility] Last Admin: 10/24/21 11:58 Dose: 3 ml Allopurinol (Allopurinol 100 Mg Tablet) 300 mg PO DAILY [facility] Last Admin: 10/24/21 09:50 Dose: 300 mg Apixaban (Apixaban 5 Mg Tablet) 10 mg PO BID [facility] Last Admin: 10/24/21 09:49 Dose: 10 mg Ceftriaxone Sodium (Ceftriaxone 2 Gm Vial) 2 gm IVP DAILY [facility] Last Admin: 10/24/21 13:59 Dose: 2 gm Chlorhexidine Gluconate (Chlorhexidine Gluconate 15 Ml Udc) 15 ml PO BID [facility] Last Admin: 10/24/21 10:00 Dose: 15 ml Cholecalciferol (Cholecalciferol 25 Mcg Tablet) 50 mcg PO DAILY [facility] Last Admin: 10/24/21 09:51 Dose: 50 mcg Clonidine HCl (Clonidine 0.1 Mg Tablet) 0.1 mg PO BID [facility] Last Admin: 10/24/21 09:45 Dose: 0.1 mg Dexamethasone (Dexamethasone 10 Mg/Ml Vial) 6 mg IVP DAILY [facility] Last Admin: 10/24/21 08:25 Dose: 6 mg Dorzolamide HCl (Dorzolamide 2% Ophth Drops) 1 drops EACHEYE BID [facility] Last Admin: 10/24/21 09:54 Dose: 1 drops Formoterol Fumarate (Formoterol Fumarate Neb 20 Mcg/2 Ml) 20 mcg INH RTBID [facility] Last Admin: 10/24/21 07:40 Dose: 20 mcg Remdesivir 100 mg/ Sodium (Chloride) 100 mls @ 200 mls/hr IV DAILY [facility] Stop: 10/26/21 09:29 Last Infusion: 10/24/21 09:45 Dose: Infused Azithromycin 500 mg/ Sodium (Chloride) 250 mls @ 250 mls/hr IV DAILY [facility] Stop: 10/26/21 09:59 Last Admin: 10/24/21 13:59 Dose: 250 mls/hr Insulin Aspart (Insulin Aspart 300 Unit/3 Ml Pen) 1 - 9 unit SUBQ 0800,1200,1700,2100 [facility]; Protocol Last Admin: 10/24/21 12:07 Dose: 1 unit Latanoprost (Latanoprost 0.005% Ophth Drops) 1 drops EACHEYE QPM [facility] Last Admin: 10/23/21 20:51 Dose: 1 drops Lisinopril (Lisinopril 20 Mg Tablet) 20 mg PO BID [facility] Last Admin: 10/24/21 09:51 Dose: 20 mg Morphine Sulfate (Morphine 2 Mg/Ml Carpuject) 2 mg IVP Q2HR PRN PRN Reason: PAIN Last Admin: 10/24/21 12:25 Dose: 2 mg Multi-Ingredient Ointment (Zinc Oxide 20% Oint 30 Gm Tube) 1 applic TOP PRN PRN PRN Reason: Skin Care Last Admin: 10/24/21 05:14 Dose: 1 applic Nicotine (Nicotine 7 Mg Patch) 1 patch TOP DAILY [facility] Last Admin: 10/24/21 08:29 Dose: 1 patch Ondansetron HCl (Ondansetron Odt 4 Mg Tablet) 4 mg TL Q6HR PRN PRN Reason: Nausea / Vomiting Ondansetron HCl (Ondansetron 4 Mg/2 Ml Vial) 4 mg IVP Q6HR PRN PRN Reason: Nausea / Vomiting Oxycodone HCl (Oxycodone 5 Mg Tablet) 5 mg PO Q4HR PRN PRN Reason: Pain 5 to 7 Polyethylene Glycol (Polyethylene Glycol 3350 17 Gm Packet) 17 gm PO DAILY [facility] Last Admin: 10/24/21 09:54 Dose: Not Given Senna (Senna 8.6 Mg Tablet) 8.6 - 17.2 mg PO DAILY [facility] Last Admin: 10/24/21 09:48 Dose: 8.6 mg Sodium Chloride (Sodium Chloride Flush 0.9% 10 Ml Syringe) 10 ml IVP 0100,0900,1700 [facility] Last Admin: 10/24/21 07:52 Dose: 10 ml Sodium Chloride (Sodium Chloride Flush 0.9% 10 Ml Syringe) 10 ml IVP PRN PRN PRN Reason: NEEDED PER PROVIDER ORDERS Last Admin: 10/24/21 14:00 Dose: 10 ml Sodium Chloride (Sodium Chloride Flush 0.9% 10 Ml Syringe) 20 ml IVP PRN PRN PRN Reason: After Blood Draw Tamsulosin HCl (Tamsulosin 0.4 Mg Capsule) 0.4 mg PO QPM [facility] Last Admin: 10/23/21 20:50 Dose: 0.4 mg Albuterol 2.5 mg INH Q4H PRN 12/28/20 Alfuzosin HCl [Uroxatral] 10 mg PO DAILY 12/28/20 Lisinopril [Zestril] 20 mg PO BID 12/28/20 Meloxicam [Mobic] 15 mg PO DAILY 12/28/20 Mometasone/Formoterol [Dulera 100 Mcg-5 Mcg Inhaler] 2 puffs IH BID 12/28/20 Mountain-3/Dha/Epa/Fish Oil [Fish Oil 1,000 mg Softgel] 1 cap PO DAILY 12/28/20 Sennosides/Docusate Sodium [Stool Softener-Laxative Tablet] 250 mg PO BID 12/28/20 Tiotropium [place] [Spiriva] 1 cap PO DAILY 12/28/20 allopurinoL [Zyloprim] 300 mg PO DAILY 12/28/20 cloNIDine [Catapres] 0.1 mg PO BID 12/28/20 Dorzolamide 2% Ophth Drops [Trusopt 2% Ophth Drops] 1 drops EACHEYE BID 09/21/21 Latanoprost 0.005% Ophth Drops [Xalatan Ophth Drops] 1 drops EACHEYE DAILY 09/21/21 Objective - Vital Signs/Intake & Output Reviewed Vital Signs: Yes Vital Signs: Vital Signs Temp Pulse Pulse Resp BP Pulse Ox 10/24/21 12:30 92 10/24/21 12:00 93 24 120/72 96 10/24/21 11:59 93 38 H 10/24/21 11:00 96 36 H 119/73 94 10/24/21 10:15 88 10/24/21 10:00 36.9 C 109 H 40 H 127/78 88 L 10/24/21 09:35 92 Intake & Output: Intake & Output 10/21/21 10/22/21 10/23/21 10/24/21 23:59 23:59 23:59 23:59 Intake Total 1169.326 6178.333 800 Output Total 852 1065 1070 Balance 097.594 6816.333 -270 - Objective General Appearance: positive: Severe distress, Anxious Eyes Bilateral: positive: PERRL, EOMI ENT: positive: No signs of dehydration Neck: positive: No JVD. negative: Stiff neck Respiratory: positive: Wheezes, Rhonchi, Other (use of abd muscles, ribs are m oving, sternocleidomastoid promient). negative: Rales Cardiovascular: positive: Regular rate & rhythm, Tachycardia. negative: Gallop/S4, Friction rub Abdomen: positive: Non-tender, No organomegaly, Nml bowel sounds, No distention Skin: positive: Warm, Dry Extremities: positive: Full ROM, No pedal edema Neurologic/Psychiatric: positive: Oriented x3, CN's nml (2-12), Motor nml - Lab Results Fish Bones: 10/24/21 03:30 10/24/21 11:13 Other Labs: Lab Results x24hrs 10/24/21 10/24/21 10/24/21 Range/Units 11:13 03:30 03:30 WBC 11.2 H (4.8-10.8) x10^3/uL RBC 4.08 L (4.70-6.10) 10^6/uL Hgb 12.8 L (14.0-18.0) g/dL Hct 39.3 L (42.0-52.0) % MCV 96.3 H (80.0-94.0) fL MCH 31.4 H (27.0-31.0) pg MCHC 32.6 (32.0-36.0) g/dL RDW 14.1 (12.0-15.0) % Plt Count 247 (130-450) 10^3/uL MPV 10.2 (7.4-11.4) fL Neut # (Auto) 8.8 H (1.5-6.6) 10^3/uL Lymph # (Auto) 1.1 L (1.5-3.5) 10^3/uL Rhea # (Auto) 1.1 H (0.0-1.0) 10^3/uL Eos # (Auto) 0.0 (0.0-0.7) 10^3/uL Baso # (Auto) 0.0 (0.0-0.1) 10^3/uL Absolute Nucleated RBC 0.00 x10^3/uL Nucleated RBC % 0.0 /100WBC D-Dimer (200.0-255.0) ng/mL VBG pH 7.423 H (7.31-7.41) Ionized Calcium 1.16 (1.15-1.33) mmol/L Sodium (135-145) mmol/L Potassium 4.0 (3.5-5.0) mmol/L Chloride (101-111) mmol/L Carbon Dioxide (21-32) mmol/L Anion Gap (6-13) BUN (6-20) mg/dL Creatinine (0.6-1.2) mg/dL Estimated GFR (MDRD) (>89) Glucose (70-100) mg/dL Calcium (8.5-10.3) mg/dL Phosphorus (2.5-4.6) mg/dL Magnesium (1.7-2.8) mg/dL 25-OH Vitamin D Total (30-100) ng/mL 10/24/21 10/24/21 10/22/21 Range/Units 03:30 03:30 05:16 WBC (4.8-10.8) x10^3/uL RBC (4.70-6.10) 10^6/uL Hgb (14.0-18.0) g/dL Hct (42.0-52.0) % MCV (80.0-94.0) fL MCH (27.0-31.0) pg MCHC (32.0-36.0) g/dL RDW (12.0-15.0) % Plt Count (130-450) 10^3/uL MPV (7.4-11.4) fL Neut # (Auto) (1.5-6.6) 10^3/uL Lymph # (Auto) (1.5-3.5) 10^3/uL Rhea # (Auto) (0.0-1.0) 10^3/uL Eos # (Auto) (0.0-0.7) 10^3/uL Baso # (Auto) (0.0-0.1) 10^3/uL Absolute Nucleated RBC x10^3/uL Nucleated RBC % /100WBC D-Dimer > 1050.0 H (200.0-255.0) ng/mL VBG pH (7.31-7.41) Ionized Calcium (1.15-1.33) mmol/L Sodium 137 (135-145) mmol/L Potassium 3.6 (3.5-5.0) mmol/L Chloride 102 (101-111) mmol/L Carbon Dioxide 27 (21-32) mmol/L Anion Gap 8.0 (6-13) BUN 25 H (6-20) mg/dL Creatinine 0.7 (0.6-1.2) mg/dL Estimated GFR (MDRD) 107 (>89) Glucose 116 H (70-100) mg/dL Calcium 8.2 L (8.5-10.3) mg/dL Phosphorus 2.7 (2.5-4.6) mg/dL Magnesium 2.0 (1.7-2.8) mg/dL 25-OH Vitamin D Total 22 L (30-100) ng/mL Assessment/Plan - Problem List (1) Acute respiratory failure with hypoxia Impression: This gentleman already has chronic respiratory failure due to COPD/centrilobular emphysema. He was given 2 L nasal cannula a few years ago but has never really used it. When he was admitted in August I think that that was not really recognized. We just noted that he did not take oxygen. He was discharged from the August admission on anywhere between 3 to 5 L. With current COPD exacerbation and Covid infection, he has decompensated and now needs BiPAP. He is a DO NOT RESUSCITATE with a POLST form that is already in his PCP office. He is willing to do BiPAP. The cause of his acute respiratory failure with hypoxia is another COPD exacerbation due to COVID-19 pneumonia. He also has multiple bilateral pulmonary emboli. He is not doing well. While the BiPAP initially made him feel so much better, he is completely dependent on it. He is now day 3. Cannot take off the BiPAP to eat. He is very tired. He states that he wonders if this is the end for him. Plan: BiPAP for now Continue to treat underlying emphysema, Covid pneumonia and pulmonary emboli Palliative care consultation ordered for today (2) COPD exacerbation Conclusion/Plan: He is already on long-acting bronchodilators. Mainly beta agonist. He does not like Spiriva. And has not been using it very much. Plan: Decadron 6 mg is already being used for Covid Continue Perforomist and budesonide Fixed schedule of DuoNeb Albuterol as needed Secretion control and will order Acapella/incentive spirometry Mucinex Add empiric antibiotics to see if it helps Palliative Care consult called for and she saw him today. Please refer to her note. Thank you for your help in the care of this ginger man. (3) COVID-19 Conclusion/Plan: Groundglass opacities, interstitial infiltrate. Acute on chronic hypoxia. Patient has been vaccinated Plan: Remdesivir for 5 days, Day #3/5 Decadron for 10 days Day #310 (4) Pulmonary emboli Conclusion/Plan: Due to sedentary status. In the past has been treated as "venous stasis" but I think the patient has peripheral vascular disease is arterial. Ulcers have been in the calves. Is already been treated in the medical ambulatory clinic in the past. Plan: Eliquis 10 mg p.o. twice daily Qualifiers: Pulmonary embolism type: multiple subsegmental (without acute cor pulmonale) Qualified Code(s): I26.94 - Multiple subsegmental pulmonary emboli without acute cor pulmonale (5) BPH (benign prostatic hyperplasia) Conclusion/Plan: Chronic, long-term problem. Already having symptoms of retention in the ICU and unable to void. Plan: Holly insertion Day #3 Flomax Qualifiers: Lower urinary tract symptom presence: symptoms absent Qualified Code(s): N40.0 - Benign prostatic hyperplasia without lower urinary tract symptoms (6) Continuous dependence on cigarette smoking Conclusion/Plan: He smoked anywhere from 2/3 to 1 pack/day since the age of 19. He is now age 86. On 7 mg patch for nicotine dependence. (7) Hypertension Conclusion/Plan: At home he uses clonidine tablets, lisinopril 20 twice daily. Those have been resumed. Qualifiers: Hypertension type: primary hypertension Qualified Code(s): I10 - Essential (primary) hypertension (8) Glucose intolerance (impaired glucose tolerance) Conclusion/Plan: In review of his medical chart, he has a history of glucose intolerance. With his last admission of inhaled steroids, he did well and did not need much management of glucose. However I will be giving him IV Decadron. I started him on sliding scale insulin. If needed I will add Lantus. 2: 200, 151 10/23: 101, 142, 132 10/24: 99, 143 No new orders. (9) AAA (abdominal aortic aneurysm) Conclusion/Plan: He was already at criteria that would require surgery. However when he was evaluated by vascular surgery at [facility], and [place] in [place], there was significant risk associated with repair of either a sending aorta or abdominal aorta. The patient was clear in discussion with the vascular surgeon that he did not want intervention. Risk was quoted at 8 to 10 %/year of rupture. Qualifiers: Presence of rupture: without rupture Qualified Code(s): I71.4 - Abdominal aortic aneurysm, without rupture (10) Glaucoma Conclusion/Plan: I have ordered his eyedrops from home to be brought in. Our pharmacy does not stock them. Qualifiers: Glaucoma type: unspecified (11) Difficult intravenous access Conclusion/Plan: I have asked anesthesia to come place a PICC line in this ginger man. Unable to place 10/22 and central line done 10/23. (12) sacral pressure ulcers present on admission and photos document red, pink skin, warm to touch, flaking. RN to follow protocol
[2021-10-24] MEDS: AZITHROMYCIN INJ 500 MG in SODIUM CHLORIDE 0.9% 250 ML IV SCH (13:59)
[2021-10-24] MEDS: cefTRIAXone 2 GM VIAL IVP SCH (13:59)
[2021-10-24] MEDS: LATANOPROST 0.005% OPHTH DROPS EACHEYE SCH (20:01)
[2021-10-24] MEDS: TAMSULOSIN 0.4 MG CAPSULE PO SCH (20:13)
[2021-10-25] MEDS: SODIUM CHLORIDE FLUSH 0.9% 10 ML SYRINGE IVP PRN ×4 (03:30→09:20)
[2021-10-25 03:39] LABS: BASOPHILS # (AUTO) 0.1 10^3/uL (0.0-0.1); BASOPHILS % (AUTO) 0.4 %; EOSINOPHILS % (AUTO) 0.3 %; HGB - HEMOGLOBIN 12.6 g/dL (14.0-18.0); LYMPHOCYTES # (AUTO) 1.1 10^3/uL (1.5-3.5); LYMPHOCYTES % (AUTO) 9.6 %; MEAN CORPUSCULAR HEMOGLOBIN 31.8 pg (27.0-31.0); MEAN CORPUSCULAR HGB CONC 32.3 g/dL (32.0-36.0); MEAN CORPUSCULAR VOLUME 98.5 fL (80.0-94.0); MEAN PLATELET VOLUME 10.2 fL (7.4-11.4); MONOCYTES % (AUTO) 8.5 %; NEUTROPHILS # (AUTO) 9.1 10^3/uL (1.5-6.6); NEUTROPHILS % (AUTO) 79.5 %; PLT - PLATELET COUNT 233 10^3/uL (130-450); RED BLOOD COUNT 3.96 10^6/uL (4.70-6.10); RED CELL DISTRIBUTION WIDTH 14.1 % (12.0-15.0); WHITE BLOOD COUNT 11.5 x10^3/uL (4.8-10.8)
[2021-10-25 03:42] LABS: CALCIUM, IONIZED 1.17 mmol/L (1.15-1.33); VBG PH 7.388 (7.31-7.41)
[2021-10-25 03:52] LABS: CALCIUM 8.2 mg/dL (8.5-10.3); CREATININE 0.7 mg/dL (0.6-1.2); MAGNESIUM 2.1 mg/dL (1.7-2.8); PHOSPHORUS 3.2 mg/dL (2.5-4.6); POTASSIUM 3.9 mmol/L (3.5-5.0)
[2021-10-25] MEDS ORDERED: POTASSIUM CHLORIDE 20 MEQ TABLET PO ONE (06:00)
[2021-10-25] MEDS: MORPHINE 2 MG/ML CARPUJECT IVP PRN ×5 (06:58→18:50)
[2021-10-25] MEDS: FORMOTEROL FUMARATE NEB 20 MCG/2 ML INH SCH ×2 (07:35→20:12)
[2021-10-25] MEDS: DEXAMETHASONE 10 MG/ML VIAL IVP SCH (08:00)
[2021-10-25] MEDS: cefTRIAXone 2 GM VIAL IVP SCH (08:00)
[2021-10-25] MEDS: NICOTINE 7 MG PATCH TOP SCH (08:00)
[2021-10-25] MEDS: INSULIN ASPART 300 UNIT/3 ML PEN SUBQ SCH ×4 (08:05→21:14)
[2021-10-25] MEDS: AZITHROMYCIN INJ 500 MG in SODIUM CHLORIDE 0.9% 250 ML IV SCH (08:10)
[2021-10-25] MEDS: IPRATROPIUM/ALBUTEROL 3 ML NEB INH SCH ×4 (08:55→20:12)
[2021-10-25] MEDS: SODIUM CHLORIDE FLUSH 0.9% 10 ML SYRINGE IVP SCH ×2 (09:00→17:00)
[2021-10-25] MEDS: APIXABAN 5 MG TABLET PO SCH ×2 (09:15→21:13)
[2021-10-25] MEDS: polyethylene glycoL 3350 17 GM PACKET PO SCH (09:15)
[2021-10-25] MEDS: CHOLECALCIFEROL 25 MCG TABLET PO SCH (09:15)
[2021-10-25] MEDS: REMDESIVIR 100MG VIAL 100 MG in SODIUM CHLORIDE 0.9% 100ML 100 ML IV SCH (09:15)
[2021-10-25] MEDS: allopurinoL 100 MG TABLET PO SCH (09:15)
[2021-10-25] MEDS: CHLORHEXIDINE GLUCONATE 15 ML UDC PO SCH ×2 (09:20→21:13)
[2021-10-25] MEDS: DORZOLAMIDE 2% OPHTH DROPS EACHEYE SCH ×2 (09:20→21:16)
[2021-10-25] MEDS: SENNA 8.6 MG TABLET PO SCH (09:20)
[2021-10-25] MEDS: cloNIDine 0.1 MG TABLET PO SCH ×2 (09:36→21:13)
[2021-10-25] MEDS: lisinopriL 20 MG TABLET PO SCH ×2 (09:36→21:13)
--- NOTE | 2021-10-25 10:40 | CONSULTATION NOTE ---
Palliative Care Follow Up - Referral Referring Provider: Dr. Tracee Valles Time of Visit: 929-10: [id number] Referral setting: Hospitalized patient - Information Sources Records reviewed: RN notes reviewed, Previous records reviewed History/Review of Systems obtained from: Patient, Family (family conference on phone with daughter Tani) Exam limitations: Clinical condition (patient with respiratory effort but able to participate) - History of Present Illness Update Brief HPI Update: Please see HPI 10/24. This is a ginger 86-year-old gentleman who is admitted to ICU with acute respiratory failure with hypoxia, COPD/centrilobular emphysema, COPD exacerbation, COVID pneumonia, and pulmonary emboli on 10/22. He is plateaued, still remaining compromised needing BiPAP support, trialing off with high flow oxygen, but does perceive himself as still quite compromised. He reports he is breathing better, able to take a deeper breath, but does not know if this is improvement in his status or just relief from the morphine. He is very pleased he was able to see his daughters yesterday, expecting two other children this afternoon. Feels like this is really given him a boost emotionally and spiritually. Palliative care meeting with patient to continue discuss goals of care. Past Medical History: Hypertension, peripheral vascular disease, pulmonary embolism, angina, COPD, emphysema, recent CAP, history of CVA, colon polyps, chronic constipation, BPH, known renal mass, glaucoma, chronic hearing loss, osteoarthritis of spine and hips, gout, chronic back pain, eczema, basal cell carcinoma, venous stasis dermatitis. Social History - Living Situation Living arrangement: At home Living Situation: With family Support System: Patient lives at home with his daughter Mel, they have lived together for 10 years since the of his . He reports this has worked very well. He does have 7 children total, 4 daughters and 3 sons. He has been for 11 years, he shared some about his ginger marriage, time in [employer] career, has felt like he has lived a full and productive life. Medications/Allergies - Medications Active Medication List: Active Medications Acetaminophen (Acetaminophen 325 Mg Tablet) 650 mg PO Q4HR PRN PRN Reason: Pain 1 to 4 Albuterol (Albuterol Neb 2.5 Mg/3 Ml) 2.5 mg INH Q4H PRN PRN Reason: Wheezing Albuterol/Ipratropium (Ipratropium/Albuterol 3 Ml Neb) 3 ml INH RTQID [facility] Last Admin: 10/25/21 08:55 Dose: 3 ml Allopurinol (Allopurinol 100 Mg Tablet) 300 mg PO DAILY [facility] Last Admin: 10/25/21 09:15 Dose: 300 mg Apixaban (Apixaban 5 Mg Tablet) 10 mg PO BID [facility] Last Admin: 10/25/21 09:15 Dose: 10 mg Ceftriaxone Sodium (Ceftriaxone 2 Gm Vial) 2 gm IVP DAILY [facility] Last Admin: 10/25/21 08:00 Dose: 2 gm Chlorhexidine Gluconate (Chlorhexidine Gluconate 15 Ml Udc) 15 ml PO BID [facility] Last Admin: 10/25/21 09:20 Dose: 15 ml Cholecalciferol (Cholecalciferol 25 Mcg Tablet) 50 mcg PO DAILY [facility] Last Admin: 10/25/21 09:15 Dose: 50 mcg Clonidine HCl (Clonidine 0.1 Mg Tablet) 0.1 mg PO BID [facility] Last Admin: 10/25/21 09:36 Dose: Not Given Dexamethasone (Dexamethasone 10 Mg/Ml Vial) 6 mg IVP DAILY [facility] Last Admin: 10/25/21 08:00 Dose: 6 mg Dorzolamide HCl (Dorzolamide 2% Ophth Drops) 1 drops EACHEYE BID [facility] Last Admin: 10/25/21 09:20 Dose: 1 drops Formoterol Fumarate (Formoterol Fumarate Neb 20 Mcg/2 Ml) 20 mcg INH RTBID [facility] Last Admin: 10/25/21 07:35 Dose: 20 mcg Remdesivir 100 mg/ Sodium (Chloride) 100 mls @ 200 mls/hr IV DAILY [facility] Stop: 10/26/21 09:29 Last Infusion: 10/25/21 09:45 Dose: Infused Azithromycin 500 mg/ Sodium (Chloride) 250 mls @ 250 mls/hr IV DAILY [facility] Stop: 10/26/21 09:59 Last Infusion: 10/25/21 09:10 Dose: Infused Insulin Aspart (Insulin Aspart 300 Unit/3 Ml Pen) 1 - 9 unit SUBQ 0800,1200,1700,2100 [facility]; Protocol Last Admin: 10/25/21 08:05 Dose: Not Given Latanoprost (Latanoprost 0.005% Ophth Drops) 1 drops EACHEYE QPM [facility] Last Admin: 10/24/21 20:01 Dose: 1 drops Lisinopril (Lisinopril 20 Mg Tablet) 20 mg PO BID [facility] Last Admin: 10/25/21 09:36 Dose: Not Given Morphine Sulfate (Morphine 2 Mg/Ml Carpuject) 2 mg IVP Q2HR PRN PRN Reason: PAIN Last Admin: 10/25/21 10:10 Dose: 2 mg Multi-Ingredient Ointment (Zinc Oxide 20% Oint 30 Gm Tube) 1 applic TOP PRN PRN PRN Reason: Skin Care Last Admin: 10/24/21 20:14 Dose: 1 applic Nicotine (Nicotine 7 Mg Patch) 1 patch TOP DAILY [facility] Last Admin: 10/25/21 08:00 Dose: 1 patch Ondansetron HCl (Ondansetron Odt 4 Mg Tablet) 4 mg TL Q6HR PRN PRN Reason: Nausea / Vomiting Ondansetron HCl (Ondansetron 4 Mg/2 Ml Vial) 4 mg IVP Q6HR PRN PRN Reason: Nausea / Vomiting Oxycodone HCl (Oxycodone 5 Mg Tablet) 5 mg PO Q4HR PRN PRN Reason: Pain 5 to 7 Polyethylene Glycol (Polyethylene Glycol 3350 17 Gm Packet) 17 gm PO DAILY [facility] Last Admin: 10/25/21 09:15 Dose: Not Given Senna (Senna 8.6 Mg Tablet) 8.6 - 17.2 mg PO DAILY [facility] Last Admin: 10/25/21 09:20 Dose: 8.6 mg Sodium Chloride (Sodium Chloride Flush 0.9% 10 Ml Syringe) 10 ml IVP 0100,0900,1700 [facility] Last Admin: 10/25/21 09:00 Dose: 10 ml Sodium Chloride (Sodium Chloride Flush 0.9% 10 Ml Syringe) 10 ml IVP PRN PRN PRN Reason: NEEDED PER PROVIDER ORDERS Last Admin: 10/25/21 09:20 Dose: 10 ml Sodium Chloride (Sodium Chloride Flush 0.9% 10 Ml Syringe) 20 ml IVP PRN PRN PRN Reason: After Blood Draw Last Admin: 10/25/21 03:30 Dose: 20 ml Tamsulosin HCl (Tamsulosin 0.4 Mg Capsule) 0.4 mg PO QPM [facility] Last Admin: 10/24/21 20:13 Dose: 0.4 mg Albuterol 2.5 mg INH Q4H PRN 12/28/20 Alfuzosin HCl [Uroxatral] 10 mg PO DAILY 12/28/20 Lisinopril [Zestril] 20 mg PO BID 12/28/20 Meloxicam [Mobic] 15 mg PO DAILY 12/28/20 Mometasone/Formoterol [Dulera 100 Mcg-5 Mcg Inhaler] 2 puffs IH BID 12/28/20 Ignacio-3/Dha/Epa/Fish Oil [Fish Oil 1,000 mg Softgel] 1 cap PO DAILY 12/28/20 Sennosides/Docusate Sodium [Stool Softener-Laxative Tablet] 250 mg PO BID 12/28/20 Tiotropium [place] [Spiriva] 1 cap PO DAILY 12/28/20 allopurinoL [Zyloprim] 300 mg PO DAILY 12/28/20 cloNIDine [Catapres] 0.1 mg PO BID 12/28/20 Dorzolamide 2% Ophth Drops [Trusopt 2% Ophth Drops] 1 drops EACHEYE BID 09/21/21 Latanoprost 0.005% Ophth Drops [Xalatan Ophth Drops] 1 drops EACHEYE DAILY 09/21/21 - Allergies Allergies/Adverse Reactions: Allergies Allergy/AdvReac Type Severity Reaction Status Date / Time merbromin Allergy Rash Verified 10/22/21 18:54 [From Mercurochrome] Penicillins Allergy Unknown Verified 10/22/21 05:56 shellfish derived Allergy Unknown Verified 10/22/21 05:56 clopidogrel [From Plavix] AdvReac Cramps Verified 10/22/21 18:55 Review of Systems - Constitutional Constitutional: reports: Fatigue, Weakness, Poor appetite, Weight loss - Eyes Eyes: reports: Vision loss - Ears, Nose & Throat Ears, Nose & Throat: reports: Hearing loss, Hoarseness, Dry mouth - Cardiovascular Cardiovascular: reports: Exertional dyspnea, Decr. exercise tolerance. denies: Chest pain - Respiratory Respiratory: reports: Cough, Orthopnea, SOB at rest, SOB with exertion - Gastrointestinal Gastrointestinal: reports: Bloating, Poor appetite, Early satiety - Genitourinary Genitourinary: reports: Other (currently has bautista cathetr) - Musculoskeletal Musculoskeletal: reports: Muscle aches, Stiffness, Limited range of motion, Muscle weakness, Other (bed bound) - Integumentary Integumentary: reports: Dryness, Other (pressure wound) - Neurological Neurological: reports: General weakness - Psychiatric Psychiatric: denies: Depression, Anxiety - Hematologic/Lymphatic Hematologic/Lymph: reports: Recurrent infections (recently hospitalized with CAP) - All Other Systems All Other Systems: reports: Other (limited given patients fatigue level) Physical Exam - Vital Signs Vital Signs: Vital Signs x48h Temp Pulse Pulse Resp BP Pulse Ox 10/25/21 10:00 95 28 H 110/59 L 90 L 10/25/21 09:00 93 32 H 113/70 91 L 10/25/21 08:56 84 29 H 10/25/21 08:00 36.9 C 86 36 H 107/62 92 10/25/21 07:15 66 90 17 97/61 91 L 10/25/21 07:04 19 85 L 10/25/21 07:00 81 23 97/61 89 L 10/25/21 06:00 64 19 96/62 94 10/25/21 05:00 68 23 95/67 94 10/25/21 04:00 71 20 104/66 90 L 10/25/21 03:38 36.5 C 10/25/21 03:00 69 21 104/65 97 - Physical Exam General Appearance: positive: Moderate distress (with respiratory effort; on FI02) Eyes Bilateral: negative: Conjunctivae nml (eyes reddened) ENT: positive: Dry mucous membranes Neck: positive: Trachea midline Cardiovascular: positive: Regular rate & rhythm Respiratory: negative: No respiratory distress (respiratory effort with any conversation) Abdomen: positive: Soft, Obese Skin: positive: Dryness, Pressure wound Extremities: positive: Other (laying in bed) Neurologic/Psychiatric: positive: Oriented x3, Weakness, Depressed mood/affect Palliative Care - POLST Patient has POLST: Yes POLST Status: DNR Performance Status: patient has been bedbound - Palliative Care Discussion: Patient continues to sit with the question about prolonging suffering and life, feels again that he is ready to go when it is his time. He is very much enjoying and feels much more at peace after seeing his children. He would like to go home for his end-of-life event, again we reviewed just the difficulties with this with his current respiratory support that he needs. That withdrawing care at this point would most likely be an end-of-life event in hours to days, but if improved even to the point where could support him at home, this would be an option to transition with hospice. He is aware that it still somewhat in the "twilight zone", and we discussed what else he would need for support. He reports he is a [employer], but has no home druze space, did offer pharmacy salesperson for support, declined at this time. Reports he is not ready for that quite yet. He denies feeling any existential distress, anxiety is improved with being able to see his family, and has very much appreciated the care he is received from the nurses. Did speak with daughter Mel, they have very much appreciated being able to see their father, given that still unknowns, they did have a conversation with her father again about making more definitive decisions, Thursday, if things do n ot continue to improve, this is in alignment as far as expectations with hospitalist team as well. At this point in time she is feeling at peace with what is going on, her siblings are coming in to provide support and say their goodbyes as well. Have given hospice a heads up, regarding current plan for hoping patient improves enough to be able to be supported at home for end-of-life, if patient were to improve, patient's goals still are in alignment with hospice which is not to return back to the hospital. Results - Lab Results Lab results reviewed: Yes Fish Bones: 10/25/21 03:30 10/25/21 03:30 Lab and Imaging Results: Lab Results x24hrs 10/25/21 10/25/21 10/25/21 Range/Units 03:30 03:30 03:30 WBC 11.5 H (4.8-10.8) x10^3/uL RBC 3.96 L (4.70-6.10) 10^6/uL Hgb 12.6 L (14.0-18.0) g/dL Hct 39.0 L (42.0-52.0) % MCV 98.5 H (80.0-94.0) fL MCH 31.8 H (27.0-31.0) pg MCHC 32.3 (32.0-36.0) g/dL RDW 14.1 (12.0-15.0) % Plt Count 233 (130-450) 10^3/uL MPV 10.2 (7.4-11.4) fL Neut # (Auto) 9.1 H (1.5-6.6) 10^3/uL Lymph # (Auto) 1.1 L (1.5-3.5) 10^3/uL [place] # (Auto) 1.0 (0.0-1.0) 10^3/uL Eos # (Auto) 0.0 (0.0-0.7) 10^3/uL Baso # (Auto) 0.1 (0.0-0.1) 10^3/uL Absolute Nucleated RBC 0.00 x10^3/uL Nucleated RBC % 0.0 /100WBC D-Dimer (200.0-255.0) ng/mL VBG pH 7.388 (7.31-7.41) Ionized Calcium 1.17 (1.15-1.33) mmol/L Sodium 137 (135-145) mmol/L Potassium 3.9 (3.5-5.0) mmol/L Chloride 102 (101-111) mmol/L Carbon Dioxide 27 (21-32) mmol/L Anion Gap 8.0 (6-13) BUN 21 H (6-20) mg/dL Creatinine 0.7 (0.6-1.2) mg/dL Estimated GFR (MDRD) 107 (>89) Glucose 122 H (70-100) mg/dL Calcium 8.2 L (8.5-10.3) mg/dL Phosphorus 3.2 (2.5-4.6) mg/dL Magnesium 2.1 (1.7-2.8) mg/dL 10/25/21 10/24/21 Range/Units 03:30 11:13 WBC (4.8-10.8) x10^3/uL RBC (4.70-6.10) 10^6/uL Hgb (14.0-18.0) g/dL Hct (42.0-52.0) % MCV (80.0-94.0) fL MCH (27.0-31.0) pg MCHC (32.0-36.0) g/dL RDW (12.0-15.0) % Plt Count (130-450) 10^3/uL MPV (7.4-11.4) fL Neut # (Auto) (1.5-6.6) 10^3/uL Lymph # (Auto) (1.5-3.5) 10^3/uL [place] # (Auto) (0.0-1.0) 10^3/uL Eos # (Auto) (0.0-0.7) 10^3/uL Baso # (Auto) (0.0-0.1) 10^3/uL Absolute Nucleated RBC x10^3/uL Nucleated RBC % /100WBC D-Dimer > 1050.0 H (200.0-255.0) ng/mL VBG pH (7.31-7.41) Ionized Calcium (1.15-1.33) mmol/L Sodium (135-145) mmol/L Potassium 4.0 (3.5-5.0) mmol/L Chloride (101-111) mmol/L Carbon Dioxide (21-32) mmol/L Anion Gap (6-13) BUN (6-20) mg/dL Creatinine (0.6-1.2) mg/dL Estimated GFR (MDRD) (>89) Glucose (70-100) mg/dL Calcium (8.5-10.3) mg/dL Phosphorus (2.5-4.6) mg/dL Magnesium (1.7-2.8) mg/dL Impression and Recommendations - Palliative Care Impression: This is a ginger 86-year-old gentleman who unfortunately presents with COPD exacerbation, acute on chronic respiratory failure, Covid pneumonia, pulmonary emboli, and continued compromised respiratory status. Palliative care providing support regarding goals of care, providing psychosocial support, and assisting with identifying transition plan. Recommendations/Counseling Done: 1. Advanced care planning. Patient has multiple comorbidities, COVID-19 pneumonia, COPD exacerbation, respiratory failure, functional decline prior to hospitalization, weight loss, and presents with concerns for further decline or concern for ongoing respiratory support. Patient is feeling better with having seen his family, he is very clear does not want anything done to prolong his suffering. Family members are coming in to say their goodbyes and provide support he is finding this emotionally very uplifting. He does have 7 children, there is adequate support if patient were able to transition home, would like to transition home with hospice. Addressed questions regarding patient's curiosities of around withdrawing care, at this point decision point most likely will wait till Thursday. 45 minutes with greater than 50% of this done in counseling regarding goals of care, anticipatory guidance, psychosocial support, and coordination with hospice and hospitalist team
[2021-10-25] MEDS: ZINC OXIDE 20% OINT 30 GM TUBE TOP PRN (15:00)
--- NOTE | 2021-10-25 19:35 | PROVIDER PROGRESS NOTE ---
Subjective - Prog Note Date Prog Note Date: 10/25/21 Prog Note Time: 19:35 - Subjective Pt reports feeling: No change Subjective: Struggling to breathe. Completely dependent on the BiPAP. If he tries to come off, drops his sats immediately. He is discouraged. Asked me if he is can to get through this or if he is going to here Current Medications - Current Medications Current Medications: Active Medications Acetaminophen (Acetaminophen 325 Mg Tablet) 650 mg PO Q4HR PRN PRN Reason: Pain 1 to 4 Albuterol (Albuterol Neb 2.5 Mg/3 Ml) 2.5 mg INH Q4H PRN PRN Reason: Wheezing Albuterol/Ipratropium (Ipratropium/Albuterol 3 Ml Neb) 3 ml INH RTQID [facility] Last Admin: 10/25/21 16:55 Dose: 3 ml Allopurinol (Allopurinol 100 Mg Tablet) 300 mg PO DAILY [facility] Last Admin: 10/25/21 09:15 Dose: 300 mg Apixaban (Apixaban 5 Mg Tablet) 10 mg PO BID [facility] Last Admin: 10/25/21 09:15 Dose: 10 mg Ceftriaxone Sodium (Ceftriaxone 2 Gm Vial) 2 gm IVP DAILY [facility] Last Admin: 10/25/21 08:00 Dose: 2 gm Chlorhexidine Gluconate (Chlorhexidine Gluconate 15 Ml Udc) 15 ml PO BID [facility] Last Admin: 10/25/21 09:20 Dose: 15 ml Cholecalciferol (Cholecalciferol 25 Mcg Tablet) 50 mcg PO DAILY [facility] Last Admin: 10/25/21 09:15 Dose: 50 mcg Clonidine HCl (Clonidine 0.1 Mg Tablet) 0.1 mg PO BID [facility] Dexamethasone (Dexamethasone 10 Mg/Ml Vial) 6 mg IVP DAILY [facility] Last Admin: 10/25/21 08:00 Dose: 6 mg Dorzolamide HCl (Dorzolamide 2% Ophth Drops) 1 drops EACHEYE BID [facility] Last Admin: 10/25/21 09:20 Dose: 1 drops Formoterol Fumarate (Formoterol Fumarate Neb 20 Mcg/2 Ml) 20 mcg INH RTBID [facility] Last Admin: 10/25/21 07:35 Dose: 20 mcg Remdesivir 100 mg/ Sodium (Chloride) 100 mls @ 200 mls/hr IV DAILY [facility] Stop: 10/26/21 09:29 Last Infusion: 02/04/22 09:45 Dose: Infused Azithromycin 500 mg/ Sodium (Chloride) 250 mls @ 250 mls/hr IV DAILY [facility] Stop: 10/26/21 09:59 Last Infusion: 10/25/21 09:10 Dose: Infused Insulin Aspart (Insulin Aspart 300 Unit/3 Ml Pen) 1 - 9 unit SUBQ 0800,1200,1700,2100 [facility]; Protocol Last Admin: 10/25/21 17:00 Dose: 1 unit Latanoprost (Latanoprost 0.005% Ophth Drops) 1 drops EACHEYE QPM [facility] Last Admin: 10/24/21 20:01 Dose: 1 drops Lisinopril (Lisinopril 20 Mg Tablet) 20 mg PO BID [facility] Morphine Sulfate (Morphine 2 Mg/Ml Carpuject) 2 mg IVP Q2HR PRN PRN Reason: PAIN Last Admin: 10/25/21 18:50 Dose: 2 mg Multi-Ingredient Ointment (Zinc Oxide 20% Oint 30 Gm Tube) 1 applic TOP PRN PRN PRN Reason: Skin Care Last Admin: 10/25/21 15:00 Dose: 1 applic Nicotine (Nicotine 7 Mg Patch) 1 patch TOP DAILY [facility] Last Admin: 10/25/21 08:00 Dose: 1 patch Ondansetron HCl (Ondansetron Odt 4 Mg Tablet) 4 mg TL Q6HR PRN PRN Reason: Nausea / Vomiting Ondansetron HCl (Ondansetron 4 Mg/2 Ml Vial) 4 mg IVP Q6HR PRN PRN Reason: Nausea / Vomiting Oxycodone HCl (Oxycodone 5 Mg Tablet) 5 mg PO Q4HR PRN PRN Reason: Pain 5 to 7 Polyethylene Glycol (Polyethylene Glycol 3350 17 Gm Packet) 17 gm PO DAILY [facility] Last Admin: 10/25/21 09:15 Dose: Not Given Senna (Senna 8.6 Mg Tablet) 8.6 - 17.2 mg PO DAILY [facility] Last Admin: 10/25/21 09:20 Dose: 8.6 mg Sodium Chloride (Sodium Chloride Flush 0.9% 10 Ml Syringe) 10 ml IVP 0100,0900,1700 [facility] Last Admin: 10/25/21 17:00 Dose: 10 ml Sodium Chloride (Sodium Chloride Flush 0.9% 10 Ml Syringe) 10 ml IVP PRN PRN PRN Reason: NEEDED PER PROVIDER ORDERS Last Admin: 10/25/21 09:20 Dose: 10 ml Sodium Chloride (Sodium Chloride Flush 0.9% 10 Ml Syringe) 20 ml IVP PRN PRN PRN Reason: After Blood Draw Last Admin: 10/25/21 03:30 Dose: 20 ml Tamsulosin HCl (Tamsulosin 0.4 Mg Capsule) 0.4 mg PO QPM [facility] Last Admin: 10/24/21 20:13 Dose: 0.4 mg Albuterol 2.5 mg INH Q4H PRN 12/28/20 Alfuzosin HCl [Uroxatral] 10 mg PO DAILY 12/28/20 Lisinopril [Zestril] 20 mg PO BID 12/28/20 Meloxicam [Mobic] 15 mg PO DAILY 12/28/20 Mometasone/Formoterol [Dulera 100 Mcg-5 Mcg Inhaler] 2 puffs IH BID 12/28/20 [place]-3/Dha/Epa/Fish Oil [Fish Oil 1,000 mg Softgel] 1 cap PO DAILY 12/28/20 Sennosides/Docusate Sodium [Stool Softener-Laxative Tablet] 250 mg PO BID 12/28/20 Tiotropium [place] [Spiriva] 1 cap PO DAILY 12/28/20 allopurinoL [Zyloprim] 300 mg PO DAILY 12/28/20 cloNIDine [Catapres] 0.1 mg PO BID 12/28/20 Dorzolamide 2% Ophth Drops [Trusopt 2% Ophth Drops] 1 drops EACHEYE BID 09/21/21 Latanoprost 0.005% Ophth Drops [Xalatan Ophth Drops] 1 drops EACHEYE DAILY 09/21/21 Objective - Vital Signs/Intake & Output Reviewed Vital Signs: Yes Vital Signs: Vital Signs x48h Temp Pulse Pulse Resp BP Pulse Ox 10/25/21 19:00 82 32 H 110/72 95 10/25/21 18:00 87 36 H 124/61 93 10/25/21 17:00 99 30 H 133/84 H 92 10/25/21 16:45 87 10/25/21 16:40 85 33 H 10/25/21 16:00 36.4 C L 90 34 H 139/85 H 95 10/25/21 15:29 94 02/04/22 15:00 98 34 H 115/69 90 L 10/25/21 14:00 89 28 H 105/67 97 10/25/21 13:00 93 34 H 104/68 95 10/25/21 12:57 91 25 H 10/25/21 12:00 37.1 C 83 32 H 105/73 95 Intake & Output: Intake & Output 10/22/21 10/23/21 10/24/21 10/25/21 23:59 23:59 23:59 23:59 Intake Total 1955.849 9192.333 1870 1600 Output Total 852 1065 2185 1820 Balance 649.747 9814.333 -315 -220 - Objective General Appearance: positive: Alert, Moderate distress Eyes Bilateral: positive: PERRL, EOMI ENT: positive: No signs of dehydration Neck: positive: No JVD. negative: Stiff neck Respiratory: positive: Wheezes, Rhonchi, Other (Tachypnea, recruitment of abdominal wall muscles to breathe, turned over onto his left side just trying to get comfortable. Worse to lay flat on his back.) Cardiovascular: positive: Regular rate & rhythm, Tachycardia, Systolic murmur. negative: Gallop/S4, Friction rub Abdomen: positive: Non-tender, No organomegaly, Nml bowel sounds, No distention, Other (Obese large pannus, protuberant) Skin: positive: No rash, Warm, Dry Extremities: positive: Full ROM, No pedal edema Neurologic/Psychiatric: positive: Oriented x3, CN's nml (2-12) (Except deaf), Motor nml (Except severe dyspnea and exertion precludes him from such simple things is rolling over in bed or trying to sit up. He gasp for air) - Lab Results Fish Bones: 10/27/21 05:00 10/27/21 05:00 Other Labs: Lab Results x24hrs 10/25/21 10/25/21 10/25/21 Range/Units 03:30 03:30 03:30 WBC 11.5 H (4.8-10.8) x10^3/uL RBC 3.96 L (4.70-6.10) 10^6/uL Hgb 12.6 L (14.0-18.0) g/dL Hct 39.0 L (42.0-52.0) % MCV 98.5 H (80.0-94.0) fL MCH 31.8 H (27.0-31.0) pg MCHC 32.3 (32.0-36.0) g/dL RDW 14.1 (12.0-15.0) % Plt Count 233 (130-450) 10^3/uL MPV 10.2 (7.4-11.4) fL Neut # (Auto) 9.1 H (1.5-6.6) 10^3/uL Lymph # (Auto) 1.1 L (1.5-3.5) 10^3/uL [place] # (Auto) 1.0 (0.0-1.0) 10^3/uL Eos # (Auto) 0.0 (0.0-0.7) 10^3/uL Baso # (Auto) 0.1 (0.0-0.1) 10^3/uL Absolute Nucleated RBC 0.00 x10^3/uL Nucleated RBC % 0.0 /100WBC D-Dimer (200.0-255.0) ng/mL VBG pH 7.388 (7.31-7.41) Ionized Calcium 1.17 (1.15-1.33) mmol/L Sodium 137 (135-145) mmol/L Potassium 3.9 (3.5-5.0) mmol/L Chloride 102 (101-111) mmol/L Carbon Dioxide 27 (21-32) mmol/L Anion Gap 8.0 (6-13) BUN 21 H (6-20) mg/dL Creatinine 0.7 (0.6-1.2) mg/dL Estimated GFR (MDRD) 107 (>89) Glucose 122 H (70-100) mg/dL Calcium 8.2 L (8.5-10.3) mg/dL Phosphorus 3.2 (2.5-4.6) mg/dL Magnesium 2.1 (1.7-2.8) mg/dL 10/25/21 Range/Units 03:30 WBC (4.8-10.8) x10^3/uL RBC (4.70-6.10) 10^6/uL Hgb (14.0-18.0) g/dL Hct (42.0-52.0) % MCV (80.0-94.0) fL MCH (27.0-31.0) pg MCHC (32.0-36.0) g/dL RDW (12.0-15.0) % Plt Count (130-450) 10^3/uL MPV (7.4-11.4) fL Neut # (Auto) (1.5-6.6) 10^3/uL Lymph # (Auto) (1.5-3.5) 10^3/uL [place] # (Auto) (0.0-1.0) 10^3/uL Eos # (Auto) (0.0-0.7) 10^3/uL Baso # (Auto) (0.0-0.1) 10^3/uL Absolute Nucleated RBC x10^3/uL Nucleated RBC % /100WBC D-Dimer > 1050.0 H (200.0-255.0) ng/mL VBG pH (7.31-7.41) Ionized Calcium (1.15-1.33) mmol/L Sodium (135-145) mmol/L Potassium (3.5-5.0) mmol/L Chloride (101-111) mmol/L Carbon Dioxide (21-32) mmol/L Anion Gap (6-13) BUN (6-20) mg/dL Creatinine (0.6-1.2) mg/dL Estimated GFR (MDRD) (>89) Glucose (70-100) mg/dL Calcium (8.5-10.3) mg/dL Phosphorus (2.5-4.6) mg/dL Magnesium (1.7-2.8) mg/dL ABX Reporting Has patient been on IV antibiotics over the past 48 hours?: Yes Assessment/Plan - Problem List (1) Acute respiratory failure with hypoxia Impression: This gentleman already has chronic respiratory failure due to COPD/centrilobular emphysema. He was given 2 L nasal cannula a few years ago but has never really used it. When he was admitted in August I think that that was not really recognized. We just noted that he did not take oxygen. He was discharged from the August admission on anywhere between 3 to 5 L. With current COPD exacerbation and Covid infection, he has decompensated and now needs BiPAP. He is a DO NOT RESUSCITATE with a POLST form that is already in his PCP office. He is willing to do BiPAP. The cause of his acute respiratory failure with hypoxia is another COPD exacerbation due to COVID-19 pneumonia. He also has multiple bilateral pulmonary emboli. He is not doing well. While the BiPAP initially made him feel so much better, he is completely dependent on it. He is now day 3. Cannot take off the BiPAP to eat. He is very tired. He states that he wonders if this is the end for him. Plan: BiPAP To continue. Continue to treat underlying emphysema, Covid pneumonia and pulmonary emboli Palliative care consultation done October 24. We are focusing on trying to get him through this stay even though his prognosis is poor, and family has been visiting him to say their goodbyes. He is resigned himself to possible . He is waiting to see how he does with regards to response to our treatment over the next 2 to 3 days to then decide if he is going to transition to taking off the BiPAP, not using oxygen and passing away. (2) COPD exacerbation Conclusion/Plan: He is already on long-acting bronchodilators. Mainly beta agonist. He does not like Spiriva. And has not been using it very much. Plan: Decadron 6 mg is already being used for Covid, Day #3 Continue Perforomist and budesonide Fixed schedule of DuoNeb Albuterol as needed Secretion control and will order Acapella/incentive spirometry Mucinex Empiric abx added / Palliative Care consult called for and she saw him 23. Please refer to her note. Thank you for your help in the care of this ginger man. (3) COVID-19 Conclusion/Plan: Groundglass opacities, interstitial infiltrate. Acute on chronic hypoxia. Patient has been vaccinated Plan: Remdesivir for 5 days, Day #3/5 Decadron for 10 days Day #310 (4) Pulmonary emboli Conclusion/Plan: Due to sedentary status. In the past has been treated as "venous stasis" but I think the patient has peripheral vascular disease is arterial. Ulcers have been in the calves. Is already been treated in the medical ambulatory clinic in the past. Plan: Eliquis 10 mg p.o. twice daily Qualifiers: Pulmonary embolism type: multiple subsegmental (without acute cor pulmonale) Qualified Code(s): I26.94 - Multiple subsegmental pulmonary emboli without acute cor pulmonale (5) BPH (benign prostatic hyperplasia) Conclusion/Plan: Chronic, long-term problem. Already having symptoms of retention in the ICU and unable to void. Plan: Holly insertion Day #4 Flomax Qualifiers: Lower urinary tract symptom presence: symptoms absent Qualified Code(s): N40.0 - Benign prostatic hyperplasia without lower urinary tract symptoms (6) Continuous dependence on cigarette smoking Conclusion/Plan: He smoked anywhere from 2/3 to 1 pack/day since the age of 19. He is now age 86. On 7 mg patch for nicotine dependence. (7) Hypertension Conclusion/Plan: At home he uses clonidine tablets, lisinopril 20 twice daily. Those have been resumed. Qualifiers: Hypertension type: primary hypertension Qualified Code(s): I10 - Essential (primary) hypertension (8) Glucose intolerance (impaired glucose tolerance) Conclusion/Plan: In review of his medical chart, he has a history of glucose intolerance. With his last admission of inhaled steroids, he did well and did not need much management of glucose. However I will be giving him IV Decadron. I started him on sliding scale insulin. If needed I will add Lantus. 2/1: 200, 151 2/2: 101, 142, 132 2/3: 99, 143, 139, 161 2/4: 100, 207, 157, 120 No new orders. (9) AAA (abdominal aortic aneurysm) Conclusion/Plan: He was already at criteria that would require surgery. However when he was evaluated by vascular surgery at [facility], there was significant risk associated with repair of either a sending aorta or abdominal aorta. The patient was clear in discussion with the vascular surgeon that he did not want intervention. Risk was quoted at 8 to 10 %/year of rupture. Qualifiers: Presence of rupture: without rupture Qualified Code(s): I71.4 - Abdominal aortic aneurysm, without rupture (10) Glaucoma Conclusion/Plan: I have ordered his eyedrops from home to be brought in. Our pharmacy does not stock them. Qualifiers: Glaucoma type: unspecified (11) Difficult intravenous access Conclusion/Plan: I have asked anesthesia to come place a PICC line in this ginger man. Unable to place 2/1 and central line done 2/2. (12) sacral pressure ulcers present on admission and photos document red, pink skin, warm to touch, flaking. RN to follow protocol
[2021-10-25] MEDS: TAMSULOSIN 0.4 MG CAPSULE PO SCH (21:13)
[2021-10-25] MEDS: LATANOPROST 0.005% OPHTH DROPS EACHEYE SCH (21:16)
[2021-10-26] MEDS: MORPHINE 2 MG/ML CARPUJECT IVP PRN ×6 (04:20→20:54)
[2021-10-26] MEDS: SODIUM CHLORIDE FLUSH 0.9% 10 ML SYRINGE IVP SCH ×3 (05:01→17:38)
[2021-10-26 05:58] LABS: BASOPHILS # (AUTO) 0.1 10^3/uL (0.0-0.1); BASOPHILS % (AUTO) 0.4 %; EOSINOPHILS % (AUTO) 0.3 %; HCT - HEMATOCRIT 39.7 % (42.0-52.0); LYMPHOCYTES % (AUTO) 8.2 %; MEAN CORPUSCULAR HEMOGLOBIN 32.8 pg (27.0-31.0); MEAN CORPUSCULAR HGB CONC 32.7 g/dL (32.0-36.0); MEAN CORPUSCULAR VOLUME 100.3 fL (80.0-94.0); MEAN PLATELET VOLUME 11.3 fL (7.4-11.4); MONOCYTES # (AUTO) 0.9 10^3/uL (0.0-1.0); MONOCYTES % (AUTO) 7.5 %; NEUTROPHILS # (AUTO) 10.2 10^3/uL (1.5-6.6); PLT - PLATELET COUNT 186 10^3/uL (130-450); RED BLOOD COUNT 3.96 10^6/uL (4.70-6.10); RED CELL DISTRIBUTION WIDTH 14.3 % (12.0-15.0); WHITE BLOOD COUNT 12.5 x10^3/uL (4.8-10.8)
[2021-10-26 06:13] LABS: CALCIUM 8.2 mg/dL (8.5-10.3); CREATININE 0.6 mg/dL (0.6-1.2); POTASSIUM 3.8 mmol/L (3.5-5.0)
[2021-10-26] MEDS: FORMOTEROL FUMARATE NEB 20 MCG/2 ML INH SCH ×2 (07:21→19:44)
[2021-10-26] MEDS: INSULIN ASPART 300 UNIT/3 ML PEN SUBQ SCH ×3 (08:00→21:06)
[2021-10-26] MEDS: IPRATROPIUM/ALBUTEROL 3 ML NEB INH SCH ×5 (08:56→19:45)
[2021-10-26] MEDS: DEXAMETHASONE 10 MG/ML VIAL IVP SCH (09:26)
[2021-10-26] MEDS: SODIUM CHLORIDE FLUSH 0.9% 10 ML SYRINGE IVP PRN ×2 (09:30→17:38)
[2021-10-26] MEDS: AZITHROMYCIN INJ 500 MG in SODIUM CHLORIDE 0.9% 250 ML IV SCH (09:36)
[2021-10-26] MEDS: cefTRIAXone 2 GM VIAL IVP SCH (09:45)
[2021-10-26] MEDS ORDERED: SODIUM CHLORIDE 0.9% 1,000 ML IV ONE ×2 (10:18→11:00)
[2021-10-26] MEDS: cloNIDine 0.1 MG TABLET PO SCH ×2 (10:21→20:54)
[2021-10-26] MEDS: DORZOLAMIDE 2% OPHTH DROPS EACHEYE SCH ×2 (10:26→20:59)
[2021-10-26] MEDS: lisinopriL 20 MG TABLET PO SCH ×2 (10:31→21:07)
[2021-10-26] MEDS: APIXABAN 5 MG TABLET PO SCH ×2 (10:36→20:54)
[2021-10-26] MEDS: CHOLECALCIFEROL 25 MCG TABLET PO SCH (10:37)
[2021-10-26 10:38] LABS: ABG PCO2 39 mmHg (34-45); ABG PH 7.44 (7.35-7.45)
[2021-10-26 10:39] LABS: ABG BASE EXCESS 1.9 mmol/L (-2.0-3.0); ABG OXYGEN SATURATION 99 % (94-98); ABG PO2 135 mmHg (80-100); ABG TCO2 27.2 MMOL/L (21.0-29.0); ALLEN TEST POSITIVE
[2021-10-26] MEDS: allopurinoL 100 MG TABLET PO SCH (10:39)
[2021-10-26] MEDS: CHLORHEXIDINE GLUCONATE 15 ML UDC PO SCH ×2 (10:41→21:05)
[2021-10-26 10:43] LABS: ABG MODE OF VENTILATION SYNCHRONOUS/TIMES
[2021-10-26] MEDS: SODIUM CHLORIDE 0.9% 1,000 ML IV SCH ×2 (11:00→21:39)
[2021-10-26] MEDS: polyethylene glycoL 3350 17 GM PACKET PO SCH (11:33)
[2021-10-26] MEDS: SENNA 8.6 MG TABLET PO SCH (11:34)
[2021-10-26] MEDS: REMDESIVIR 100MG VIAL 100 MG in SODIUM CHLORIDE 0.9% 100ML 100 ML IV SCH (11:36)
[2021-10-26] MEDS: NICOTINE 7 MG PATCH TOP SCH (11:37)
--- NOTE | 2021-10-26 19:27 | PROVIDER PROGRESS NOTE ---
Subjective - Prog Note Date Prog Note Date: 10/26/21 Prog Note Time: 19:27 - Subjective Subjective: This morning he bottomed out his systolic to 74. Was cyanotic. Gasping. I gave him a fluid bolus and put him on maintenance IV fluids. Respiratory ther apy worked aggressively with maintaining his O2 sats. Staying on BiPAP 24/7. Over the course the day he is gradually improved and blood pressure is normal. Not nearly as uncomfortable or in respiratory distress as he was this morning. Current Medications - Current Medications Current Medications: Active Medications Acetaminophen (Acetaminophen 325 Mg Tablet) 650 mg PO Q4HR PRN PRN Reason: Pain 1 to 4 Albuterol (Albuterol Neb 2.5 Mg/3 Ml) 2.5 mg INH Q4H PRN PRN Reason: Wheezing Albuterol/Ipratropium (Ipratropium/Albuterol 3 Ml Neb) 3 ml INH RTQID [facility] Last Admin: 10/26/21 19:23 Dose: Not Given Allopurinol (Allopurinol 100 Mg Tablet) 300 mg PO DAILY [facility] Last Admin: 10/26/21 10:39 Dose: 300 mg Apixaban (Apixaban 5 Mg Tablet) 10 mg PO BID [facility] Last Admin: 10/26/21 10:36 Dose: 10 mg Ceftriaxone Sodium (Ceftriaxone 2 Gm Vial) 2 gm IVP DAILY [facility] Last Admin: 10/26/21 09:45 Dose: 2 gm Chlorhexidine Gluconate (Chlorhexidine Gluconate 15 Ml Udc) 15 ml PO BID [facility] Last Admin: 10/26/21 10:41 Dose: 15 ml Cholecalciferol (Cholecalciferol 25 Mcg Tablet) 50 mcg PO DAILY [facility] Last Admin: 10/26/21 10:37 Dose: 50 mcg Clonidine HCl (Clonidine 0.1 Mg Tablet) 0.1 mg PO BID [facility] Last Admin: 10/26/21 10:21 Dose: Not Given Dexamethasone (Dexamethasone 10 Mg/Ml Vial) 6 mg IVP DAILY [facility] Last Admin: 10/26/21 09:26 Dose: 6 mg Dorzolamide HCl (Dorzolamide 2% Ophth Drops) 1 drops EACHEYE BID [facility] Last Admin: 10/26/21 10:26 Dose: 1 drops Formoterol Fumarate (Formoterol Fumarate Neb 20 Mcg/2 Ml) 20 mcg INH RTBID [facility] Last Admin: 10/26/21 07:21 Dose: 20 mcg Sodium Chloride (Normal Saline 0.9%) 1,000 mls @ 100 mls/hr IV .Q10H [facility] Last Admin: 10/26/21 11:00 Dose: 100 mls/hr Insulin Aspart (Insulin Aspart 300 Unit/3 Ml Pen) 1 - 9 unit SUBQ 0800,1200,1700,2100 [facility]; Protocol Last Admin: 10/26/21 17:33 Dose: 1 unit Latanoprost (Latanoprost 0.005% Ophth Drops) 1 drops EACHEYE QPM [facility] Last Admin: 10/25/21 21:16 Dose: 1 drops Lisinopril (Lisinopril 20 Mg Tablet) 20 mg PO BID [facility] Last Admin: 10/26/21 10:31 Dose: Not Given Morphine Sulfate (Morphine 2 Mg/Ml Carpuject) 2 mg IVP Q2HR PRN PRN Reason: PAIN Last Admin: 10/26/21 14:59 Dose: 2 mg Multi-Ingredient Ointment (Zinc Oxide 20% Oint 30 Gm Tube) 1 applic TOP PRN PRN PRN Reason: Skin Care Last Admin: 10/25/21 15:00 Dose: 1 applic Nicotine (Nicotine 7 Mg Patch) 1 patch TOP DAILY [facility] Last Admin: 10/26/21 11:37 Dose: 1 patch Ondansetron HCl (Ondansetron Odt 4 Mg Tablet) 4 mg TL Q6HR PRN PRN Reason: Nausea / Vomiting Ondansetron HCl (Ondansetron 4 Mg/2 Ml Vial) 4 mg IVP Q6HR PRN PRN Reason: Nausea / Vomiting Oxycodone HCl (Oxycodone 5 Mg Tablet) 5 mg PO Q4HR PRN PRN Reason: Pain 5 to 7 Polyethylene Glycol (Polyethylene Glycol 3350 17 Gm Packet) 17 gm PO DAILY [facility] Last Admin: 10/26/21 11:33 Dose: 17 gm Senna (Senna 8.6 Mg Tablet) 8.6 - 17.2 mg PO DAILY [facility] Last Admin: 10/26/21 11:34 Dose: 8.6 mg Sodium Chloride (Sodium Chloride Flush 0.9% 10 Ml Syringe) 10 ml IVP 0100,0900,1700 [facility] Last Admin: 10/26/21 17:38 Dose: 10 ml Sodium Chloride (Sodium Chloride Flush 0.9% 10 Ml Syringe) 10 ml IVP PRN PRN PRN Reason: NEEDED PER PROVIDER ORDERS Last Admin: 10/26/21 17:38 Dose: 10 ml Sodium Chloride (Sodium Chloride Flush 0.9% 10 Ml Syringe) 20 ml IVP PRN PRN PRN Reason: After Blood Draw Last Admin: 10/25/21 03:30 Dose: 20 ml Tamsulosin HCl (Tamsulosin 0.4 Mg Capsule) 0.4 mg PO QPM [facility] Last Admin: 10/25/21 21:13 Dose: 0.4 mg Albuterol 2.5 mg INH Q4H PRN 12/28/20 Alfuzosin HCl [Uroxatral] 10 mg PO DAILY 12/28/20 Lisinopril [Zestril] 20 mg PO BID 12/28/20 Meloxicam [Mobic] 15 mg PO DAILY 12/28/20 Mometasone/Formoterol [Dulera 100 Mcg-5 Mcg Inhaler] 2 puffs IH BID 12/28/20 [place]-3/Dha/Epa/Fish Oil [Fish Oil 1,000 mg Softgel] 1 cap PO DAILY 12/28/20 Sennosides/Docusate Sodium [Stool Softener-Laxative Tablet] 250 mg PO BID 12/28/20 Tiotropium [place] [Spiriva] 1 cap PO DAILY 12/28/20 allopurinoL [Zyloprim] 300 mg PO DAILY 12/28/20 cloNIDine [Catapres] 0.1 mg PO BID 12/28/20 Dorzolamide 2% Ophth Drops [Trusopt 2% Ophth Drops] 1 drops EACHEYE BID 09/21/21 Latanoprost 0.005% Ophth Drops [Xalatan Ophth Drops] 1 drops EACHEYE DAILY 09/21/21 Objective - Vital Signs/Intake & Output Reviewed Vital Signs: Yes Vital Signs: Vital Signs x48h Temp Pulse Pulse Resp BP Pulse Ox 10/26/21 19:00 85 23 106/63 95 10/26/21 18:00 87 31 H 122/65 91 L 10/26/21 17:00 85 25 H 120/73 93 10/26/21 16:00 85 31 H 115/73 96 10/26/21 15:00 92 22 126/99 H 94 10/26/21 14:00 37.1 C 89 34 H 121/68 95 10/26/21 13:00 78 30 H 112/83 H 94 10/26/21 12:52 83 27 H 10/26/21 12:00 121/74 98 Intake & Output: Intake & Output 10/23/21 10/24/21 10/25/21 10/26/21 23:59 23:59 23:59 23:59 Intake Total 2548.333 1870 2200 2420 Output Total 1065 2185 2100 1785 Balance 1483.333 -315 100 635 - Objective General Appearance: positive: Alert, Mild distress Eyes Bilateral: positive: PERRL, EOMI ENT: positive: No signs of dehydration Neck: positive: No JVD. negative: Stiff neck Respiratory: positive: Wheezes, Rhonchi, Other (This morning I thought he was going to pass away and was gasping for air, this afternoon less recruitment of abdominal muscles, and resting more easily) Cardiovascular: positive: Regular rate & rhythm. negative: Gallop/S4, Friction rub Abdomen: positive: Non-tender, No organomegaly, Nml bowel sounds, No distention Skin: positive: Warm, Dry, Pallor Extremities: positive: Full ROM, No pedal edema Neurologic/Psychiatric: positive: Oriented x3, Motor nml - Lab Results Fish Bones: 10/27/21 05:00 10/27/21 05:00 Other Labs: Lab Results x24hrs 10/26/21 10/26/21 10/26/21 Range/Units 10:27 07:40 05:10 WBC 12.5 H (4.8-10.8) x10^3/uL RBC 3.96 L (4.70-6.10) 10^6/uL Hgb 13.0 L (14.0-18.0) g/dL Hct 39.7 L (42.0-52.0) % MCV 100.3 H (80.0-94.0) fL MCH 32.8 H (27.0-31.0) pg MCHC 32.7 (32.0-36.0) g/dL RDW 14.3 (12.0-15.0) % Plt Count 186 (130-450) 10^3/uL MPV 11.3 (7.4-11.4) fL Neut # (Auto) 10.2 H (1.5-6.6) 10^3/uL Lymph # (Auto) 1.0 L (1.5-3.5) 10^3/uL Falls # (Auto) 0.9 (0.0-1.0) 10^3/uL Eos # (Auto) 0.0 (0.0-0.7) 10^3/uL Baso # (Auto) 0.1 (0.0-0.1) 10^3/uL Absolute Nucleated RBC 0.00 x10^3/uL Nucleated RBC % 0.0 /100WBC D-Dimer > 1050.0 H (200.0-255.0) ng/mL Bld Gas Analysis Time 1035 Sample Site LEFT RADIAL ABG pH 7.44 (7.35-7.45) ABG pCO2 39 (34-45) mmHg ABG pO2 135 H (80-100) mmHg ABG HCO3 26.0 (22.0-26.0) mmol/L ABG Total CO2 27.2 (21.0-29.0) MMOL/L ABG O2 Saturation 99 H (94-98) % ABG Base Excess 1.9 (-2.0-3.0) mmol/L Mauricio Test POSITIVE O2 Delivery Device BiPAP Vent Mode SYNCHRONOUS/TIMES FiO2 100.00 EPAP 5 cmH2O IPAP 12 cmH2O Sodium (135-145) mmol/L Potassium (3.5-5.0) mmol/L Chloride (101-111) mmol/L Carbon Dioxide (21-32) mmol/L Anion Gap (6-13) BUN (6-20) mg/dL Creatinine (0.6-1.2) mg/dL Estimated GFR (MDRD) (>89) Glucose (70-100) mg/dL Calcium (8.5-10.3) mg/dL 10/26/21 Range/Units 05:10 WBC (4.8-10.8) x10^3/uL RBC (4.70-6.10) 10^6/uL Hgb (14.0-18.0) g/dL Hct (42.0-52.0) % MCV (80.0-94.0) fL MCH (27.0-31.0) pg MCHC (32.0-36.0) g/dL RDW (12.0-15.0) % Plt Count (130-450) 10^3/uL MPV (7.4-11.4) fL Neut # (Auto) (1.5-6.6) 10^3/uL Lymph # (Auto) (1.5-3.5) 10^3/uL Falls # (Auto) (0.0-1.0) 10^3/uL Eos # (Auto) (0.0-0.7) 10^3/uL Baso # (Auto) (0.0-0.1) 10^3/uL Absolute Nucleated RBC x10^3/uL Nucleated RBC % /100WBC D-Dimer (200.0-255.0) ng/mL Bld Gas Analysis Time Sample Site ABG pH (7.35-7.45) ABG pCO2 (34-45) mmHg ABG pO2 (80-100) mmHg ABG HCO3 (22.0-26.0) mmol/L ABG Total CO2 (21.0-29.0) MMOL/L ABG O2 Saturation (94-98) % ABG Base Excess (-2.0-3.0) mmol/L Mauricio Test O2 Delivery Device Vent Mode FiO2 EPAP cmH2O IPAP cmH2O Sodium 139 (135-145) mmol/L Potassium 3.8 (3.5-5.0) mmol/L Chloride 103 (101-111) mmol/L Carbon Dioxide 28 (21-32) mmol/L Anion Gap 8.0 (6-13) BUN 21 H (6-20) mg/dL Creatinine 0.6 (0.6-1.2) mg/dL Estimated GFR (MDRD) 128 (>89) Glucose 127 H (70-100) mg/dL Calcium 8.2 L (8.5-10.3) mg/dL ABX Reporting Has patient been on IV antibiotics over the past 48 hours?: Yes Assessment/Plan - Problem List (1) Acute respiratory failure with hypoxia Impression: This gentleman already has chronic respiratory failure due to COPD/centrilobular emphysema. He was given 2 L nasal cannula a few years ago but has never really used it. When he was admitted in August I think that that was not really recognized. We just noted that he did not take oxygen. He was discharged from the August admission on anywhere between 3 to 5 L. With current COPD exacerbation and Covid infection, he has decompensated and now needs BiPAP. He is a DO NOT RESUSCITATE with a POLST form that is already in his PCP office. He is willing to do BiPAP. The cause of his acute respiratory failure with hypoxia is another COPD exacerbation due to COVID-19 pneumonia. He also has multiple bilateral pulmonary emboli. He is not doing well. While the BiPAP initially made him fe el so much better, he is completely dependent on it. He is now day 5. Cannot take off the BiPAP to eat. Worse this morning and slightly improved by this afternoon. Continue to visit with family and he will let me know 10/28 what he would like to do with BiPAP then. (2) COPD exacerbation Conclusion/Plan: He is already on long-acting bronchodilators. Mainly beta agonist. He does not like Spiriva. And has not been using it very much. Plan: Decadron 6 mg is already being used for Covid Continue Perforomist and budesonide Fixed schedule of DuoNeb Albuterol as needed Secretion control and will order Acapella/incentive spirometry Mucinex I added empiric antibiotics to see if it helps with azithromycin 2/-10/26 Palliative Care consult called for and she saw him. Please refer to her note. Thank you for your help in the care of this ginger man. (3) COVID-19 Conclusion/Plan: Groundglass opacities, interstitial infiltrate. Acute on chronic hypoxia. Patient has been vaccinated Plan: Remdesivir for 5 days, Day #5/5 Decadron for 10 days Day #01/28 (4) Pulmonary emboli Conclusion/Plan: Due to sedentary status. In the past has been treated as "venous stasis" but I think the patient has peripheral vascular disease is arterial. Ulcers have been in the calves. Is already been treated in the medical ambulatory clinic in the past. Plan: Eliquis 10 mg p.o. twice daily Qualifiers: Pulmonary embolism type: multiple subsegmental (without acute cor pulmonale) Qualified Code(s): I26.94 - Multiple subsegmental pulmonary emboli without acute cor pulmonale (5) BPH (benign prostatic hyperplasia) Conclusion/Plan: Chronic, long-term problem. Already having symptoms of retention in the ICU and unable to void. Plan: Holly insertion Day #5 Flomax Qualifiers: Lower urinary tract symptom presence: symptoms absent Qualified Code(s): N40.0 - Benign prostatic hyperplasia without lower urinary tract symptoms (6) Continuous dependence on cigarette smoking Conclusion/Plan: He smoked anywhere from 2/3 to 1 pack/day since the age of 19. He is now age 86. On 7 mg patch for nicotine dependence. (7) Hypertension Conclusion/Plan: At home he uses clonidine tablets, lisinopril 20 twice daily. Those have been resumed. Qualifiers: Hypertension type: primary hypertension Qualified Code(s): I10 - Essential (primary) hypertension (8) Glucose intolerance (impaired glucose tolerance) Conclusion/Plan: In review of his medical chart, he has a history of glucose intolerance. With his last admission of inhaled steroids, he did well and did not need much management of glucose. However I will be giving him IV Decadron. I started him on sliding scale insulin. If needed I will add Lantus. 2/: 200, 151 2/2: 101, 142, 132 2/3: 99, 143, 139, 161 2/4: 100, 207, 157, 120 2/5: 104, 135, 175 no new orders. (9) AAA (abdominal aortic aneurysm) Conclusion/Plan: He was already at criteria that would require surgery. However when he was evaluated by vascular surgery at [facility], there was significant risk associated with repair of either a sending aorta or abdominal aorta. The patient was clear in discussion with the vascular surgeon that he did not want intervention. Risk was quoted at 8 to 10 %/year of rupture. Qualifiers: Presence of rupture: without rupture Qualified Code(s): I71.4 - Abdominal aortic aneurysm, without rupture (10) Glaucoma Conclusion/Plan: I have ordered his eyedrops from home to be brought in. Our pharmacy does not stock them. Qualifiers: Glaucoma type: unspecified (11) Difficult intravenous access Conclusion/Plan: I have asked anesthesia to come place a PICC line in this ginger man. Unable to place 2/ and central line done 2/2. (12) sacral pressure ulcers present on admission and photos document red, pink skin, warm to touch, flaking. RN to follow protocol
[2021-10-26] MEDS: TAMSULOSIN 0.4 MG CAPSULE PO SCH (20:55)
[2021-10-26] MEDS: LATANOPROST 0.005% OPHTH DROPS EACHEYE SCH (20:59)
[2021-10-27] MEDS: SODIUM CHLORIDE FLUSH 0.9% 10 ML SYRINGE IVP SCH ×3 (05:03→17:24)
[2021-10-27] MEDS: MORPHINE 2 MG/ML CARPUJECT IVP PRN ×5 (05:04→20:40)
[2021-10-27 05:56] LABS: BASOPHILS % (AUTO) 0.3 %; EOSINOPHILS % (AUTO) 0.2 %; HCT - HEMATOCRIT 35.9 % (42.0-52.0); HGB - HEMOGLOBIN 12.3 g/dL (14.0-18.0); LYMPHOCYTES % (AUTO) 7.9 %; MEAN CORPUSCULAR HEMOGLOBIN 34.7 pg (27.0-31.0); MEAN CORPUSCULAR HGB CONC 34.3 g/dL (32.0-36.0); MEAN CORPUSCULAR VOLUME 101.4 fL (80.0-94.0); MEAN PLATELET VOLUME 11.2 fL (7.4-11.4); MONOCYTES % (AUTO) 7.3 %; NEUTROPHILS # (AUTO) 10.8 10^3/uL (1.5-6.6); NEUTROPHILS % (AUTO) 82.5 %; PLT - PLATELET COUNT 204 10^3/uL (130-450); RED BLOOD COUNT 3.54 10^6/uL (4.70-6.10); RED CELL DISTRIBUTION WIDTH 16.1 % (12.0-15.0); WHITE BLOOD COUNT 13.1 x10^3/uL (4.8-10.8)
[2021-10-27 06:03] LABS: CALCIUM 8.2 mg/dL (8.5-10.3); CREATININE 0.7 mg/dL (0.6-1.2); POTASSIUM 4.3 mmol/L (3.5-5.0)
[2021-10-27 07:21] LABS: CALCIUM, IONIZED 1.18 mmol/L (1.15-1.33); VBG PH 7.31 (7.31-7.41)
[2021-10-27] MEDS: IPRATROPIUM/ALBUTEROL 3 ML NEB INH SCH ×4 (07:47→20:25)
[2021-10-27] MEDS: FORMOTEROL FUMARATE NEB 20 MCG/2 ML INH SCH ×2 (07:47→20:25)
[2021-10-27] MEDS: SODIUM CHLORIDE 0.9% 1,000 ML IV SCH ×2 (08:15→17:24)
[2021-10-27] MEDS: NICOTINE 7 MG PATCH TOP SCH (08:15)
[2021-10-27] MEDS: CHLORHEXIDINE GLUCONATE 15 ML UDC PO SCH ×2 (08:15→20:42)
[2021-10-27] MEDS: SENNA 8.6 MG TABLET PO SCH (08:17)
[2021-10-27] MEDS: CHOLECALCIFEROL 25 MCG TABLET PO SCH (08:17)
[2021-10-27] MEDS: APIXABAN 5 MG TABLET PO SCH ×2 (08:17→20:36)
[2021-10-27] MEDS: DEXAMETHASONE 10 MG/ML VIAL IVP SCH (08:18)
[2021-10-27] MEDS: polyethylene glycoL 3350 17 GM PACKET PO SCH (08:19)
[2021-10-27] MEDS: DORZOLAMIDE 2% OPHTH DROPS EACHEYE SCH ×2 (08:19→20:42)
[2021-10-27] MEDS: cefTRIAXone 2 GM VIAL IVP SCH (08:20)
[2021-10-27] MEDS: allopurinoL 100 MG TABLET PO SCH (08:25)
[2021-10-27] MEDS: INSULIN ASPART 300 UNIT/3 ML PEN SUBQ SCH ×4 (08:27→20:39)
[2021-10-27] MEDS: cloNIDine 0.1 MG TABLET PO SCH ×2 (08:28→20:42)
[2021-10-27] MEDS: lisinopriL 20 MG TABLET PO SCH ×2 (08:28→20:42)
--- NOTE | 2021-10-27 15:54 | PROVIDER PROGRESS NOTE ---
Subjective - Prog Note Date Prog Note Date: 10/27/21 Prog Note Time: 15:50 - Subjective Subjective: Yesterday was very ana for him. I did not think he was going to make it through the morning. But over the course of the day gradually rebounded with hi s blood pressure, and last night, only needed 3 hours of BiPAP. He has been able to be comfortable and oxygenate normally on high flow nasal cannula. That makes him feel less fearful as well. Current Medications - Current Medications Current Medications: Active Medications Acetaminophen (Acetaminophen 325 Mg Tablet) 650 mg PO Q4HR PRN PRN Reason: Pain 1 to 4 Albuterol (Albuterol Neb 2.5 Mg/3 Ml) 2.5 mg INH Q4H PRN PRN Reason: Wheezing Albuterol/Ipratropium (Ipratropium/Albuterol 3 Ml Neb) 3 ml INH RTQID [facility] Last Admin: 10/27/21 11:58 Dose: 3 ml Allopurinol (Allopurinol 100 Mg Tablet) 300 mg PO DAILY [facility] Last Admin: 10/27/21 08:25 Dose: 300 mg Apixaban (Apixaban 5 Mg Tablet) 10 mg PO BID [facility] Last Admin: 10/27/21 08:17 Dose: 10 mg Ceftriaxone Sodium (Ceftriaxone 2 Gm Vial) 2 gm IVP DAILY [facility] Last Admin: 10/27/21 08:20 Dose: 2 gm Chlorhexidine Gluconate (Chlorhexidine Gluconate 15 Ml Udc) 15 ml PO BID [facility] Last Admin: 10/27/21 08:15 Dose: 15 ml Cholecalciferol (Cholecalciferol 25 Mcg Tablet) 50 mcg PO DAILY [facility] Last Admin: 10/27/21 08:17 Dose: 50 mcg Clonidine HCl (Clonidine 0.1 Mg Tablet) 0.1 mg PO BID [facility] Last Admin: 10/27/21 08:28 Dose: Not Given Dexamethasone (Dexamethasone 10 Mg/Ml Vial) 6 mg IVP DAILY [facility] Last Admin: 10/27/21 08:18 Dose: 6 mg Dorzolamide HCl (Dorzolamide 2% Ophth Drops) 1 drops EACHEYE BID [facility] Last Admin: 10/27/21 08:19 Dose: 1 drops Formoterol Fumarate (Formoterol Fumarate Neb 20 Mcg/2 Ml) 20 mcg INH RTBID [facility] Last Admin: 10/27/21 07:47 Dose: 20 mcg Sodium Chloride (Normal Saline 0.9%) 1,000 mls @ 100 mls/hr IV .Q10H [facility] Last Admin: 10/27/21 08:15 Dose: 100 mls/hr Insulin Aspart (Insulin Aspart 300 Unit/3 Ml Pen) 1 - 9 unit SUBQ 0800,1200,1700,2100 [facility]; Protocol Last Admin: 10/27/21 12:44 Dose: 3 unit Latanoprost (Latanoprost 0.005% Ophth Drops) 1 drops EACHEYE QPM [facility] Last Admin: 10/26/21 20:59 Dose: 1 drops Lisinopril (Lisinopril 20 Mg Tablet) 20 mg PO BID [facility] Last Admin: 10/27/21 08:28 Dose: Not Given Morphine Sulfate (Morphine 2 Mg/Ml Carpuject) 2 mg IVP Q2HR PRN PRN Reason: PAIN Last Admin: 10/27/21 14:37 Dose: 2 mg Multi-Ingredient Ointment (Zinc Oxide 20% Oint 30 Gm Tube) 1 applic TOP PRN PRN PRN Reason: Skin Care Last Admin: 10/25/21 15:00 Dose: 1 applic Nicotine (Nicotine 7 Mg Patch) 1 patch TOP DAILY [facility] Last Admin: 10/27/21 08:15 Dose: 1 patch Ondansetron HCl (Ondansetron Odt 4 Mg Tablet) 4 mg TL Q6HR PRN PRN Reason: Nausea / Vomiting Ondansetron HCl (Ondansetron 4 Mg/2 Ml Vial) 4 mg IVP Q6HR PRN PRN Reason: Nausea / Vomiting Oxycodone HCl (Oxycodone 5 Mg Tablet) 5 mg PO Q4HR PRN PRN Reason: Pain 5 to 7 Polyethylene Glycol (Polyethylene Glycol 3350 17 Gm Packet) 17 gm PO DAILY [facility] Last Admin: 10/27/21 08:19 Dose: 17 gm Senna (Senna 8.6 Mg Tablet) 8.6 - 17.2 mg PO DAILY [facility] Last Admin: 10/27/21 08:17 Dose: 17.2 mg Sodium Chloride (Sodium Chloride Flush 0.9% 10 Ml Syringe) 10 ml IVP 0100,0900,1700 [facility] Last Admin: 10/27/21 08:28 Dose: 10 ml Sodium Chloride (Sodium Chloride Flush 0.9% 10 Ml Syringe) 10 ml IVP PRN PRN PRN Reason: NEEDED PER PROVIDER ORDERS Last Admin: 10/26/21 17:38 Dose: 10 ml Sodium Chloride (Sodium Chloride Flush 0.9% 10 Ml Syringe) 20 ml IVP PRN PRN PRN Reason: After Blood Draw Last Admin: 10/25/21 03:30 Dose: 20 ml Tamsulosin HCl (Tamsulosin 0.4 Mg Capsule) 0.4 mg PO QPM [facility] Last Admin: 10/26/21 20:55 Dose: 0.4 mg Albuterol 2.5 mg INH Q4H PRN 12/28/20 Alfuzosin HCl [Uroxatral] 10 mg PO DAILY 12/28/20 Lisinopril [Zestril] 20 mg PO BID 12/28/20 Meloxicam [Mobic] 15 mg PO DAILY 12/28/20 Mometasone/Formoterol [Dulera 100 Mcg-5 Mcg Inhaler] 2 puffs IH BID 12/28/20 [place]-3/Dha/Epa/Fish Oil [Fish Oil 1,000 mg Softgel] 1 cap PO DAILY 12/28/20 Sennosides/Docusate Sodium [Stool Softener-Laxative Tablet] 250 mg PO BID 12/28/20 Tiotropium [place] [Spiriva] 1 cap PO DAILY 12/28/20 allopurinoL [Zyloprim] 300 mg PO DAILY 12/28/20 cloNIDine [Catapres] 0.1 mg PO BID 12/28/20 Dorzolamide 2% Ophth Drops [Trusopt 2% Ophth Drops] 1 drops EACHEYE BID 09/21/21 Latanoprost 0.005% Ophth Drops [Xalatan Ophth Drops] 1 drops EACHEYE DAILY 09/21/21 Objective - Vital Signs/Intake & Output Reviewed Vital Signs: Yes Vital Signs: Vital Signs x48h Temp Pulse Pulse Resp BP Pulse Ox 10/27/21 15:00 36.7 C 84 20 106/64 96 10/27/21 14:00 87 23 99/67 95 10/27/21 13:00 30 H 110/57 L 95 10/27/21 12:00 83 28 H 98/65 96 10/27/21 11:58 84 18 10/27/21 11:00 85 25 H 129/91 H 94 10/27/21 10:00 81 24 113/79 94 10/27/21 09:00 93 25 H 101/70 92 10/27/21 08:00 36.4 C L 79 24 110/75 91 L Intake & Output: Intake & Output 10/24/21 10/25/21 10/26/21 10/27/21 23:59 23:59 23:59 23:59 Intake Total 1870 2200 3810 2090 Output Total 2185 2100 2200 1850 Balance -387 855 9877 240 - Objective General Appearance: positive: Alert, Mild distress Eyes Bilateral: positive: PERRL, EOMI ENT: positive: No signs of dehydration Neck: positive: No JVD. negative: Stiff neck Respiratory: positive: Wheezes, Rhonchi, Other (No recruitment of abdominal muscles. Able to be more comfortable sitting upright. Not having to be restl ess as he turned backwards and forwards increased his work of breathing the last 2 days) Cardiovascular: positive: Regular rate & rhythm. negative: Gallop/S4 Abdomen: positive: Non-tender, No organomegaly, Nml bowel sounds, No distention Skin: positive: Warm, Dry Extremities: positive: Full ROM, No pedal edema Neurologic/Psychiatric: positive: Oriented x3, CN's nml (2-12), Motor nml - Lab Results Fish Bones: 10/27/21 05:00 10/27/21 05:00 Other Labs: Lab Results x24hrs 10/27/21 10/27/21 10/27/21 Range/Units 05:16 05:00 05:00 WBC 13.1 H (4.8-10.8) x10^3/uL RBC 3.54 L (4.70-6.10) 10^6/uL Hgb 12.3 L (14.0-18.0) g/dL Hct 35.9 L (42.0-52.0) % MCV 101.4 H (80.0-94.0) fL MCH 34.7 H (27.0-31.0) pg MCHC 34.3 (32.0-36.0) g/dL RDW 16.1 H (12.0-15.0) % Plt Count 204 (130-450) 10^3/uL MPV 11.2 (7.4-11.4) fL Neut # (Auto) 10.8 H (1.5-6.6) 10^3/uL Lymph # (Auto) 1.0 L (1.5-3.5) 10^3/uL [place] # (Auto) 1.0 (0.0-1.0) 10^3/uL Eos # (Auto) 0.0 (0.0-0.7) 10^3/uL Baso # (Auto) 0.0 (0.0-0.1) 10^3/uL Absolute Nucleated RBC 0.00 x10^3/uL Nucleated RBC % 0.0 /100WBC D-Dimer (200.0-255.0) ng/mL VBG pH 7.310 (7.31-7.41) Ionized Calcium 1.18 (1.15-1.33) mmol/L Sodium 139 (135-145) mmol/L Potassium 4.3 (3.5-5.0) mmol/L Chloride 104 (101-111) mmol/L Carbon Dioxide 29 (21-32) mmol/L Anion Gap 6.0 (6-13) BUN 21 H (6-20) mg/dL Creatinine 0.7 (0.6-1.2) mg/dL Estimated GFR (MDRD) 107 (>89) Glucose 138 H (70-100) mg/dL Calcium 8.2 L (8.5-10.3) mg/dL 10/27/21 Range/Units 05:00 WBC (4.8-10.8) x10^3/uL RBC (4.70-6.10) 10^6/uL Hgb (14.0-18.0) g/dL Hct (42.0-52.0) % MCV (80.0-94.0) fL MCH (27.0-31.0) pg MCHC (32.0-36.0) g/dL RDW (12.0-15.0) % Plt Count (130-450) 10^3/uL MPV (7.4-11.4) fL Neut # (Auto) (1.5-6.6) 10^3/uL Lymph # (Auto) (1.5-3.5) 10^3/uL [place] # (Auto) (0.0-1.0) 10^3/uL Eos # (Auto) (0.0-0.7) 10^3/uL Baso # (Auto) (0.0-0.1) 10^3/uL Absolute Nucleated RBC x10^3/uL Nucleated RBC % /100WBC D-Dimer > 1050.0 H (200.0-255.0) ng/mL VBG pH (7.31-7.41) Ionized Calcium (1.15-1.33) mmol/L Sodium (135-145) mmol/L Potassium (3.5-5.0) mmol/L Chloride (101-111) mmol/L Carbon Dioxide (21-32) mmol/L Anion Gap (6-13) BUN (6-20) mg/dL Creatinine (0.6-1.2) mg/dL Estimated GFR (MDRD) (>89) Glucose (70-100) mg/dL Calcium (8.5-10.3) mg/dL ABX Reporting Has patient been on IV antibiotics over the past 48 hours?: No Assessment/Plan - Problem List (1) Acute respiratory failure with hypoxia Impression: This gentleman already has chronic respiratory failure due to COPD/centrilobular emphysema. He was given 2 L nasal cannula a few years ago but has never really used it. When he was admitted in August I think that that was not really recognized. We just noted that he did not take oxygen. He was discharged from the August admission on anywhere between 3 to 5 L. With current COPD exacerbation and Covid infection, he has decompensated and now needs BiPAP. He is a DO NOT RESUSCITATE with a POLST form that is already in his PCP office. He is willing to do BiPAP. The cause of his acute respiratory failure with hypoxia is another COPD exacerbation due to COVID-19 pneumonia. He also has multiple bilateral pulmonary emboli. He had not been doing well. While the BiPAP initially made him feel so much better, he is completely dependent on it but he turned the corner last night. Yesterday morning was ana and I thought he was going to pass away but by afternoon stabilized. Overnight, less and less requirement of the BiPAp to breath and he only needed 3 hours. Since then on HFNC and doing well. he feels better and less congested and less desperate for air. He is now day 6. Continue to visit with family and he will let me know 10/28 what he would like to do with BiPAP then. (2) COPD exacerbation Conclusion/Plan: He is already on long-acting bronchodilators. Mainly beta agonist. He does not like Spiriva. And has not been using it very much. Plan: Decadron 6 mg is already being used for Covid Continue Perforomist and budesonide Fixed schedule of DuoNeb Albuterol as needed Secretion control and will order Acapella/incentive spirometry Mucinex I added empiric antibiotics to see if it helps with azithromycin 2/3-10/26 Palliative Care consult called for and she saw him. Please refer to her note. Thank you for your help in the care of this ginger man. (3) COVID-19 Conclusion/Plan: Groundglass opacities, interstitial infiltrate. Acute on chronic hypoxia. Patient has been vaccinated Plan: Remdesivir completed 5 days on 10/26 Decadron for 10 days Day #02/28 (4) Pulmonary emboli Conclusion/Plan: Due to sedentary status. In the past has been treated as "venous stasis" but I think the patient has peripheral vascular disease is arterial. Ulcers have been in the calves. Is already been treated in the medical ambulatory clinic in the past. Plan: Eliquis 10 mg p.o. twice daily Qualifiers: Pulmonary embolism type: multiple subsegmental (without acute cor pulmonale) Qualified Code(s): I26.94 - Multiple subsegmental pulmonary emboli without acute cor pulmonale (5) BPH (benign prostatic hyperplasia) Conclusion/Plan: Chronic, long-term problem. Already having symptoms of retention in the ICU and unable to void. Plan: Holly insertion Day #6 Flomax Qualifiers: Lower urinary tract symptom presence: symptoms absent Qualified Code(s): N40.0 - Benign prostatic hyperplasia without lower urinary tract symptoms (6) Continuous dependence on cigarette smoking Conclusion/Plan: He smoked anywhere from 2/3 to 1 pack/day since the age of 19. He is now age 86. On 7 mg patch for nicotine dependence. (7) Hypertension Conclusion/Plan: At home he uses clonidine tablets, lisinopril 20 twice daily. Those have been resumed. Qualifiers: Hypertension type: primary hypertension Qualified Code(s): I10 - Essential (primary) hypertension (8) Glucose intolerance (impaired glucose tolerance) Conclusion/Plan: In review of his medical chart, he has a history of glucose intolerance. With his last admission of inhaled steroids, he did well and did not need much management of glucose. However I will be giving him IV Decadron. I started him on sliding scale insulin. If needed I will add Lantus. 2/1: 200, 151 2/2: 101, 142, 132 2/3: 99, 143, 139, 161 2/4: 100, 207, 157, 120 2/5: 104, 135, 175,205 2/6: 120, 187 no new orders. (9) AAA (abdominal aortic aneurysm) Conclusion/Plan: He was already at criteria that would require surgery. However when he was evaluated by vascular surgery at [facility], and [facility], there was significant risk associated with repair of either a sending aorta or abdominal aorta. The patient was clear in discussion with the vascular surgeon that he did not want intervention. Risk was quoted at 8 to 10 %/year of rupture. Qualifiers: Presence of rupture: without rupture Qualified Code(s): I71.4 - Abdominal aortic aneurysm, without rupture (10) Glaucoma Conclusion/Plan: I have ordered his eyedrops from home to be brought in. Our pharmacy does not stock them. Qualifiers: Glaucoma type: unspecified (11) Difficult intravenous access Conclusion/Plan: I have asked anesthesia to come place a PICC line in this ginger man. Unable to place / and central line done 2/. (12) sacral pressure ulcers present on admission and photos document red, pink skin, warm to touch, flaking. RN to follow protocol
[2021-10-27] MEDS: TAMSULOSIN 0.4 MG CAPSULE PO SCH (20:37)
[2021-10-27] MEDS: LATANOPROST 0.005% OPHTH DROPS EACHEYE SCH (20:42)
[2021-10-28] MEDS: SODIUM CHLORIDE FLUSH 0.9% 10 ML SYRINGE IVP SCH ×3 (00:59→17:04)
[2021-10-28] MEDS: MORPHINE 2 MG/ML CARPUJECT IVP PRN ×6 (02:02→23:27)
[2021-10-28 04:20] LABS: CALCIUM, IONIZED 1.18 mmol/L (1.15-1.33); VBG PH 7.395 (7.31-7.41)
[2021-10-28 04:21] LABS: BASOPHILS % (AUTO) 0.3 %; EOSINOPHILS % (AUTO) 0.2 %; HCT - HEMATOCRIT 39.4 % (42.0-52.0); HGB - HEMOGLOBIN 12.7 g/dL (14.0-18.0); LYMPHOCYTES # (AUTO) 1.2 10^3/uL (1.5-3.5); LYMPHOCYTES % (AUTO) 8.4 %; MEAN CORPUSCULAR HEMOGLOBIN 31.6 pg (27.0-31.0); MEAN CORPUSCULAR HGB CONC 32.2 g/dL (32.0-36.0); MEAN PLATELET VOLUME 10.7 fL (7.4-11.4); MONOCYTES # (AUTO) 1.5 10^3/uL (0.0-1.0); MONOCYTES % (AUTO) 10.1 %; NEUTROPHILS # (AUTO) 11.3 10^3/uL (1.5-6.6); NEUTROPHILS % (AUTO) 78.7 %; PLT - PLATELET COUNT 213 10^3/uL (130-450); RED BLOOD COUNT 4.02 10^6/uL (4.70-6.10); RED CELL DISTRIBUTION WIDTH 13.9 % (12.0-15.0); WHITE BLOOD COUNT 14.4 x10^3/uL (4.8-10.8)
[2021-10-28 04:30] LABS: CALCIUM 8.1 mg/dL (8.5-10.3); CREATININE 0.6 mg/dL (0.6-1.2); POTASSIUM 4.2 mmol/L (3.5-5.0)
[2021-10-28 04:47] LABS: MAGNESIUM 1.9 mg/dL (1.7-2.8); PHOSPHORUS 2.8 mg/dL (2.5-4.6)
[2021-10-28] MEDS: SODIUM CHLORIDE FLUSH 0.9% 10 ML SYRINGE IVP PRN ×2 (05:06)
[2021-10-28] MEDS: IPRATROPIUM/ALBUTEROL 3 ML NEB INH SCH ×3 (07:55→16:16)
[2021-10-28] MEDS: FORMOTEROL FUMARATE NEB 20 MCG/2 ML INH SCH (07:55)
[2021-10-28] MEDS: INSULIN ASPART 300 UNIT/3 ML PEN SUBQ SCH ×4 (08:28→21:01)
[2021-10-28] MEDS: NICOTINE 7 MG PATCH TOP SCH (08:29)
[2021-10-28] MEDS: SENNA 8.6 MG TABLET PO SCH (08:29)
[2021-10-28] MEDS: lisinopriL 20 MG TABLET PO SCH (08:29)
[2021-10-28] MEDS: APIXABAN 5 MG TABLET PO SCH ×2 (08:29→20:58)
[2021-10-28] MEDS: DOCUSATE SODIUM 250 MG CAPSULE PO SCH (08:30)
[2021-10-28] MEDS: cefTRIAXone 2 GM VIAL IVP SCH (08:30)
[2021-10-28] MEDS: allopurinoL 100 MG TABLET PO SCH (08:30)
[2021-10-28] MEDS: CHLORHEXIDINE GLUCONATE 15 ML UDC PO SCH ×2 (08:30→20:59)
[2021-10-28] MEDS: CHOLECALCIFEROL 25 MCG TABLET PO SCH (08:30)
[2021-10-28] MEDS: DEXAMETHASONE 10 MG/ML VIAL IVP SCH (08:31)
[2021-10-28] MEDS: polyethylene glycoL 3350 17 GM PACKET PO SCH (08:31)
[2021-10-28] MEDS: cloNIDine 0.1 MG TABLET PO SCH (08:31)
[2021-10-28] MEDS: DORZOLAMIDE 2% OPHTH DROPS EACHEYE SCH ×2 (08:32→21:00)
[2021-10-28] MEDS ORDERED: BISACODYL 10 MG SUPP PR PRN (10:59)
[2021-10-28] MEDS ORDERED: IPRATROPIUM/ALBUTEROL 3 ML NEB INH PRN (16:15)
--- NOTE | 2021-10-28 16:48 | CONSULTATION NOTE ---
Palliative Care Follow Up - Referral Referring Provider: Dr. Tracee Valles Time of Visit: Referral setting: Hospitalized patient Referral Reason: COVID 19 Pneumonia/COPD exac/Goals of care - Information Sources Records reviewed: RN notes reviewed, Previous records reviewed History/Review of Systems obtained from: Patient, Family (spoke to daughter Mel) Exam limitations: No limitations - History of Present Illness Update Brief HPI Update: Patient continues in ICU, had somewhat of a ana couple days, but is doing better now. He is in good spirits, reports the morphine is helping him with his breathing, he is not feeling panicky. He reports only a dry intermittent cough, continue with his nebulizers, has been managed on high flow nasal cannula, they may trial Oxymizer. Pending final visit with hospitalist for transition plan, but patient very much wants to go home. Does understand his demise could go fairly quick, but is feeling he is in a good place overall with no regrets. He is very much enjoyed and appreciated the support and visits from his family over the weekend. Past Medical History: Hypertension, peripheral vascular disease, pulmonary embolism, angina, COPD, emphysema, recent CAP, history of CVA, colon polyps, chronic constipation, BPH, known renal mass, glaucoma, chronic hearing loss, osteoarthritis of spine and hips, gout, chronic back pain, eczema, basal cell carcinoma, venous stasis dermatitis. Social History - Living Situation Living arrangement: At home Living Situation: With family Support System: Patient lives at home with his daughter Mel, they have lived together for 10 years since the of his . He reports this has worked very well. He does have 7 children total, 4 daughters and 3 sons. He has been for 11 years, he shared some about his ginger marriage, time in [place], [email or web address] career, h as felt like he has lived a full and productive life. Medications/Allergies - Medications Active Medication List: Active Medications Acetaminophen (Acetaminophen 325 Mg Tablet) 650 mg PO Q4HR PRN PRN Reason: Pain 1 to 4 Albuterol (Albuterol Neb 2.5 Mg/3 Ml) 2.5 mg INH Q4H PRN PRN Reason: Wheezing Albuterol/Ipratropium (Ipratropium/Albuterol 3 Ml Neb) 3 ml INH RTQID PRN PRN Reason: Wheezing Allopurinol (Allopurinol 100 Mg Tablet) 300 mg PO DAILY [facility] Last Admin: 10/28/21 08:30 Dose: 300 mg Apixaban (Apixaban 5 Mg Tablet) 10 mg PO BID [facility] Stop: 10/28/21 21:01 Last Admin: 10/28/21 08:29 Dose: 10 mg Apixaban (Apixaban 5 Mg Tablet) 5 mg PO BID [facility] Bisacodyl (Bisacodyl 10 Mg Supp) 10 mg ME DAILY PRN PRN Reason: Constipation Ceftriaxone Sodium (Ceftriaxone 2 Gm Vial) 2 gm IVP DAILY [facility] Last Admin: 10/28/21 08:30 Dose: 2 gm Chlorhexidine Gluconate (Chlorhexidine Gluconate 15 Ml Udc) 15 ml PO BID [facility] Last Admin: 10/28/21 08:30 Dose: 15 ml Cholecalciferol (Cholecalciferol 25 Mcg Tablet) 50 mcg PO DAILY [facility] Last Admin: 10/28/21 08:30 Dose: 50 mcg Clonidine HCl (Clonidine 0.1 Mg Tablet) 0.1 mg PO BID [facility] Last Admin: 10/28/21 08:31 Dose: Not Given Dexamethasone (Dexamethasone 10 Mg/Ml Vial) 6 mg IVP DAILY [facility] Last Admin: 10/28/21 08:31 Dose: 6 mg Docusate Sodium (Docusate Sodium 250 Mg Capsule) 250 - 500 mg PO DAILY [facility] Last Admin: 10/28/21 08:30 Dose: 500 mg Dorzolamide HCl (Dorzolamide 2% Ophth Drops) 1 drops EACHEYE BID [facility] Last Admin: 10/28/21 08:32 Dose: 1 drops Insulin Aspart (Insulin Aspart 300 Unit/3 Ml Pen) 1 - 9 unit SUBQ 0800, 1200,1700,2100 [facility]; Protocol Last Admin: 10/28/21 11:56 Dose: 1 unit Latanoprost (Latanoprost 0.005% Ophth Drops) 1 drops EACHEYE QPM [facility] Last Admin: 10/27/21 20:42 Dose: 1 drops Lisinopril (Lisinopril 20 Mg Tablet) 20 mg PO BID [facility] Last Admin: 10/28/21 08:29 Dose: Not Given Morphine Sulfate (Morphine 2 Mg/Ml Carpuject) 2 mg IVP Q2HR PRN PRN Reason: PAIN Last Admin: 10/28/21 14:15 Dose: 2 mg Multi-Ingredient Ointment (Zinc Oxide 20% Oint 30 Gm Tube) 1 applic TOP PRN PRN PRN Reason: Skin Care Last Admin: 10/25/21 15:00 Dose: 1 applic Nicotine (Nicotine 7 Mg Patch) 1 patch TOP DAILY [facility] Last Admin: 10/28/21 08:29 Dose: 1 patch Ondansetron HCl (Ondansetron Odt 4 Mg Tablet) 4 mg TL Q6HR PRN PRN Reason: Nausea / Vomiting Ondansetron HCl (Ondansetron 4 Mg/2 Ml Vial) 4 mg IVP Q6HR PRN PRN Reason: Nausea / Vomiting Oxycodone HCl (Oxycodone 5 Mg Tablet) 5 mg PO Q4HR PRN PRN Reason: Pain 5 to 7 Polyethylene Glycol (Polyethylene Glycol 3350 17 Gm Packet) 17 gm PO DAILY [facility] Last Admin: 10/28/21 08:31 Dose: 17 gm Senna (Senna 8.6 Mg Tablet) 8.6 - 17.2 mg PO DAILY [facility] Last Admin: 10/28/21 08:29 Dose: 17.2 mg Sodium Chloride (Sodium Chloride Flush 0.9% 10 Ml Syringe) 10 ml IVP 0100,0900,1700 [facility] Last Admin: 10/28/21 08:32 Dose: 10 ml Sodium Chloride (Sodium Chloride Flush 0.9% 10 Ml Syringe) 10 ml IVP PRN PRN PRN Reason: NEEDED PER PROVIDER ORDERS Last Admin: 10/28/21 05:06 Dose: 10 ml Sodium Chloride (Sodium Chloride Flush 0.9% 10 Ml Syringe) 20 ml IVP PRN PRN PRN Reason: After Blood Draw Last Admin: 10/28/21 05:06 Dose: 20 ml Tamsulosin HCl (Tamsulosin 0.4 Mg Capsule) 0.4 mg PO QPM [facility] Last Admin: 10/27/21 20:37 Dose: 0.4 mg Albuterol 2.5 mg INH Q4H PRN 12/28/20 Alfuzosin HCl [Uroxatral] 10 mg PO DAILY 12/28/20 Lisinopril [Zestril] 20 mg PO BID 12/28/20 Meloxicam [Mobic] 15 mg PO DAILY 12/28/20 Mometasone/Formoterol [Dulera 100 Mcg-5 Mcg Inhaler] 2 puffs IH BID 12/28/20 [place]-3/Dha/Epa/Fish Oil [Fish Oil 1,000 mg Softgel] 1 cap PO DAILY 12/28/20 Sennosides/Docusate Sodium [Stool Softener-Laxative Tablet] 250 mg PO BID 12/28/20 Tiotropium [place] [Spiriva] 1 cap PO DAILY 12/28/20 allopurinoL [Zyloprim] 300 mg PO DAILY 12/28/20 cloNIDine [Catapres] 0.1 mg PO BID 12/28/20 Dorzolamide 2% Ophth Drops [Trusopt 2% Ophth Drops] 1 drops EACHEYE BID 09/21/21 Latanoprost 0.005% Ophth Drops [Xalatan Ophth Drops] 1 drops EACHEYE DAILY 09/21/21 - Allergies Allergies/Adverse Reactions: Allergies Allergy/AdvReac Type Severity Reaction Status Date / Time merbromin Allergy Rash Verified 10/22/21 18:54 [From Mercurochrome] Penicillins Allergy Unknown Verified 10/22/21 05:56 shellfish derived Allergy Unknown Verified 10/22/21 05:56 clopidogrel [From Plavix] AdvReac Cramps Verified 10/22/21 18:55 Review of Systems - Constitutional Constitutional: reports: Fatigue, Weakness, Weight loss - Eyes Eyes: reports: Vision loss - Ears, Nose & Throat Ears, Nose & Throat: reports: Hearing loss, Hoarseness, Dry mouth - Cardiovascular Cardiovascular: reports: Exertional dyspnea, Decr. exercise tolerance. denies: Chest pain - Respiratory Respiratory: reports: Cough (dry intermittent), Orthopnea, SOB at rest, SOB with exertion - Gastrointestinal Gastrointestinal: reports: Early satiety, Good appetite (improved) - Genitourinary Genitourinary: reports: Other (currently has bautista cathetr) - Musculoskeletal Musculoskeletal: reports: Muscle aches, Stiffness, Limited range of motion, Muscle weakness, Other (bed bound) - Integumentary Integumentary: reports: Dryness, Other (pressure wound) - Neurological Neurological: reports: General weakness - Psychiatric Psychiatric: denies: Depression, Anxiety - All Other Systems All Other Systems: reports: Other (limited given patients fatigue level) Physical Exam - Vital Signs Vital Signs: Vital Signs x48h Temp Pulse Pulse Resp BP Pulse Ox 02/07/22 16:00 36.4 C L 93 23 120/74 95 10/28/21 13:00 101 H 23 119/72 86 L 10/28/21 12:17 98 25 H 10/28/21 12:00 36.5 C 86 25 H 117/83 H 88 L 10/28/21 11:00 85 22 124/72 90 L 10/28/21 10:00 84 22 121/73 91 L 10/28/21 09:00 97 17 118/69 85 L - Physical Exam General Appearance: positive: Mild distress Eyes Bilateral: negative: Conjunctivae nml (eyes reddened) ENT: positive: Dry mucous membranes Neck: positive: Trachea midline Cardiovascular: positive: Regular rate & rhythm Respiratory: negative: No respiratory distress (respiratory effort with any conversation) Abdomen: positive: Soft, Obese Skin: positive: Dryness, Pressure wound Extremities: positive: Other (laying in bed) Neurologic/Psychiatric: positive: Oriented x3, Weakness, Depressed mood/affect Palliative Care - POLST Patient has POLST: Yes POLST Status: DNR Pain: No pain Feelings of wellbeing/Perceived Quality of Life: Poor, Acceptable, Worsening Sleep: Sleep improved Performance Status: Patient reports he has been moving his legs, still feels really weak, has been bedbound most of the time. He is hopeful at some point he would be able to transfer, but does understand will be bedbound at home as well. - Palliative Care Discussion: Met with patient, reflected on the weekend. He continues to struggle in the context of interpreting withdrawing care as "pulling the plug". We did discuss at length that one can make choices to allow natural , he would very much like to go home. We discussed in the context of his current oxygen needs, this of course means that things will go fairly quickly. Patient has been sustained on high flow oxygen at 100%. He denies any respiratory distress, observations have been that he is tolerated his respiratory effort and done well with the morphine every 2 hours. I did discuss with him we would be transitioning over to oral morphine, that the plan would be to get all the equipment in the home, and have the hospice nurse meet his family so to be able to have everyone comfortable either with a quick demise, or be prepared for things to be more slow. But we did discuss that the hospice team's goal would be to keep him comfortable, and make sure that transition is for a peaceful and respectful . Patient reports he has no regrets, that he is ready to let go, he has seen all his children and feels very blessed by this. He would very much like to be home and surrounded by his loved ones. Call from his daughter Itzel, they are feeling ready for him to make the transition home. They identified a room and place (89 yr old house) that had plugs etc. that could support all the equipment. Counseling provided and reviewed the hospice benefit, for equipment, supplies, team support, as well as medications. Reassured transition be such that they would have hospice nurse be able to train them up for what they might need to know to manage his demise. They have not had experience with anyone dying at home, but do report that there is [id number] who is a nurse and they are feeling fairly confident and committed to having this happen. Results - Lab Results Lab results reviewed: Yes Fish Bones: 10/28/21 04:16 10/28/21 04:16 Lab and Imaging Results: Lab Results x24hrs 10/28/21 10/28/21 10/28/21 Range/Units 04:50 04:16 04:16 WBC (4.8-10.8) x10^3/uL RBC (4.70-6.10) 10^6/uL Hgb (14.0-18.0) g/dL Hct (42.0-52.0) % MCV (80.0-94.0) fL MCH (27.0-31.0) pg MCHC (32.0-36.0) g/dL RDW (12.0-15.0) % Plt Count (130-450) 10^3/uL MPV (7.4-11.4) fL Neut # (Auto) (1.5-6.6) 10^3/uL Lymph # (Auto) (1.5-3.5) 10^3/uL Potter # (Auto) (0.0-1.0) 10^3/uL Eos # (Auto) (0.0-0.7) 10^3/uL Baso # (Auto) (0.0-0.1) 10^3/uL Absolute Nucleated RBC x10^3/uL Nucleated RBC % /100WBC D-Dimer > 1050.0 H (200.0-255.0) ng/mL VBG pH 7.395 (7.31-7.41) Ionized Calcium 1.18 (1.15-1.33) mmol/L Sodium (135-145) mmol/L Potassium (3.5-5.0) mmol/L Chloride (101-111) mmol/L Carbon Dioxide (21-32) mmol/L Anion Gap (6-13) BUN (6-20) mg/dL Creatinine (0.6-1.2) mg/dL Estimated GFR (MDRD) (>89) Glucose (70-100) mg/dL Calcium (8.5-10.3) mg/dL Phosphorus 2.8 (2.5-4.6) mg/dL Magnesium 1.9 (1.7-2.8) mg/dL 10/28/21 10/28/21 Range/Units 04:16 04:16 WBC 14.4 H (4.8-10.8) x10^3/uL RBC 4.02 L (4.70-6.10) 10^6/uL Hgb 12.7 L (14.0-18.0) g/dL Hct 39.4 L (42.0-52.0) % MCV 98.0 H (80.0-94.0) fL MCH 31.6 H (27.0-31.0) pg MCHC 32.2 (32.0-36.0) g/dL RDW 13.9 (12.0-15.0) % Plt Count 213 (130-450) 10^3/uL MPV 10.7 (7.4-11.4) fL Neut # (Auto) 11.3 H (1.5-6.6) 10^3/uL Lymph # (Auto) 1.2 L (1.5-3.5) 10^3/uL Potter # (Auto) 1.5 H (0.0-1.0) 10^3/uL Eos # (Auto) 0.0 (0.0-0.7) 10^3/uL Baso # (Auto) 0.0 (0.0-0.1) 10^3/uL Absolute Nucleated RBC 0.00 x10^3/uL Nucleated RBC % 0.0 /100WBC D-Dimer (200.0-255.0) ng/mL VBG pH (7.31-7.41) Ionized Calcium (1.15-1.33) mmol/L Sodium 137 (135-145) mmol/L Potassium 4.2 (3.5-5.0) mmol/L Chloride 102 (101-111) mmol/L Carbon Dioxide 29 (21-32) mmol/L Anion Gap 6.0 (6-13) BUN 21 H (6-20) mg/dL Creatinine 0.6 (0.6-1.2) mg/dL Estimated GFR (MDRD) 128 (>89) Glucose 127 H (70-100) mg/dL Calcium 8.1 L (8.5-10.3) mg/dL Phosphorus (2.5-4.6) mg/dL Magnesium (1.7-2.8) mg/dL Impression and Recommendations - Palliative Care Impression: This is a ginger 86-year-old gentleman with COVID-19 pneumonia, COPD exasper ation, respiratory failure, with functional decline and recent hospitalization. Patient very much would like to transition home with hospice, recognizing his ongoing demise but wanting to be with family and allow natural . Recommendations/Counseling Done: 1. Acute respiratory failure. Patient continues on high flow oxygen, has not needed the BiPAP, but continues to struggle. Patient has been receiving morphine IV every every 2 2 hours, with good control of air hunger and distress. Would recommend trialing and transitioning to oral morphine in the context of preparing for transition home, and evaluate effectiveness. 2. Advanced care planning. Patient did have somewhat of a ana weekend, still goals presented as wanting to transition home. Given the complexity of his situation, and need for smooth transition, would recommend discharge home Thursday. This will allow equipment, oxygen, will need medications ordered and delivered to home prior to patient's arrival for support. Unknown if patient has nebulizer at home will need to follow-up on this. Family are gathering and supportive of patient coming home to . Coordination of care with h ospitalist, hospice team, and family.Daughter Mel who is coming in later this afternoon, hopefully will be able to meet with hospitalist regarding final discharge plans and anticipatory guidance. 45 minutes with greater than 50% is spent in counseling regarding patient's goals of care, psychosocial support, coordination of care for transition planning, and anticipatory guidance
--- NOTE | 2021-10-28 17:18 | PROVIDER PROGRESS NOTE ---
Subjective - Prog Note Date Prog Note Date: 10/28/21 Prog Note Time: 17:17 - Subjective Pt reports feeling: Improved Subjective: He has been off BiPAP since yesterday evening. Been on high flow nasal cannula. He does drop into the high 80s with a saturation but he feels comfortable. He likes it because he can eat. He continues to visit with his family. Was seen by palliative care again today. In spite of the improvement, and the possibility to keep on getting better, he really wants to go home. His family is supportive of this. Current Medications - Current Medications Current Medications: Active Medications Acetaminophen (Acetaminophen 325 Mg Tablet) 650 mg PO Q4HR PRN PRN Reason: Pain 1 to 4 Albuterol (Albuterol Neb 2.5 Mg/3 Ml) 2.5 mg INH Q4H PRN PRN Reason: Wheezing Albuterol/Ipratropium (Ipratropium/Albuterol 3 Ml Neb) 3 ml INH RTQID PRN PRN Reason: Wheezing Allopurinol (Allopurinol 100 Mg Tablet) 300 mg PO DAILY [facility] Last Admin: 10/28/21 08:30 Dose: 300 mg Apixaban (Apixaban 5 Mg Tablet) 10 mg PO BID KYE Stop: 10/28/21 21:01 Last Admin: 10/28/21 08:29 Dose: 10 mg Apixaban (Apixaban 5 Mg Tablet) 5 mg PO BID KYE Bisacodyl (Bisacodyl 10 Mg Supp) 10 mg UT DAILY PRN PRN Reason: Constipation Ceftriaxone Sodium (Ceftriaxone 2 Gm Vial) 2 gm IVP DAILY [facility] Last Admin: 10/28/21 08:30 Dose: 2 gm Chlorhexidine Gluconate (Chlorhexidine Gluconate 15 Ml Udc) 15 ml PO BID KYE Last Admin: 10/28/21 08:30 Dose: 15 ml Cholecalciferol (Cholecalciferol 25 Mcg Tablet) 50 mcg PO DAILY [facility] Last Admin: 10/28/21 08:30 Dose: 50 mcg Clonidine HCl (Clonidine 0.1 Mg Tablet) 0.1 mg PO BID [facility] Last Admin: 10/28/21 08:31 Dose: Not Given Dexamethasone (Dexamethasone 10 Mg/Ml Vial) 6 mg IVP DAILY [facility] Last Admin: 10/28/21 08:31 Dose: 6 mg Docusate Sodium (Docusate Sodium 250 Mg Capsule) 250 - 500 mg PO DAILY [facility] Last Admin: 10/28/21 08:30 Dose: 500 mg Dorzolamide HCl (Dorzolamide 2% Ophth Drops) 1 drops EACHEYE BID [facility] Last Admin: 10/28/21 08:32 Dose: 1 drops Insulin Aspart (Insulin Aspart 300 Unit/3 Ml Pen) 1 - 9 unit SUBQ 0800,1200,1700,2100 [facility]; Protocol Last Admin: 10/28/21 17:04 Dose: 3 unit Latanoprost (Latanoprost 0.005% Ophth Drops) 1 drops EACHEYE QPM [facility] Last Admin: 10/27/21 20:42 Dose: 1 drops Lisinopril (Lisinopril 20 Mg Tablet) 20 mg PO BID [facility] Last Admin: 10/28/21 08:29 Dose: Not Given Morphine Sulfate (Morphine 2 Mg/Ml Carpuject) 2 mg IVP Q2HR PRN PRN Reason: PAIN Last Admin: 10/28/21 14:15 Dose: 2 mg Multi-Ingredient Ointment (Zinc Oxide 20% Oint 30 Gm Tube) 1 applic TOP PRN PRN PRN Reason: Skin Care Last Admin: 10/25/21 15:00 Dose: 1 applic Nicotine (Nicotine 7 Mg Patch) 1 patch TOP DAILY [facility] Last Admin: 10/28/21 08:29 Dose: 1 patch Ondansetron HCl (Ondansetron Odt 4 Mg Tablet) 4 mg TL Q6HR PRN PRN Reason: Nausea / Vomiting Ondansetron HCl (Ondansetron 4 Mg/2 Ml Vial) 4 mg IVP Q6HR PRN PRN Reason: Nausea / Vomiting Oxycodone HCl (Oxycodone 5 Mg Tablet) 5 mg PO Q4HR PRN PRN Reason: Pain 5 to 7 Polyethylene Glycol (Polyethylene Glycol 3350 17 Gm Packet) 17 gm PO DAILY [facility] Last Admin: 10/28/21 08:31 Dose: 17 gm Senna (Senna 8.6 Mg Tablet) 8.6 - 17.2 mg PO DAILY [facility] Last Admin: 10/28/21 08:29 Dose: 17.2 mg Sodium Chloride (Sodium Chloride Flush 0.9% 10 Ml Syringe) 10 ml IVP 0100,0900,1700 [facility] Last Admin: 10/28/21 17:04 Dose: 10 ml Sodium Chloride (Sodium Chloride Flush 0.9% 10 Ml Syringe) 10 ml IVP PRN PRN PRN Reason: NEEDED PER PROVIDER ORDERS Last Admin: 10/28/21 05:06 Dose: 10 ml Sodium Chloride (Sodium Chloride Flush 0.9% 10 Ml Syringe) 20 ml IVP PRN PRN PRN Reason: After Blood Draw Last Admin: 10/28/21 05:06 Dose: 20 ml Tamsulosin HCl (Tamsulosin 0.4 Mg Capsule) 0.4 mg PO QPM KYE Last Admin: 10/27/21 20:37 Dose: 0.4 mg Albuterol 2.5 mg INH Q4H PRN 12/28/20 Alfuzosin HCl [Uroxatral] 10 mg PO DAILY 12/28/20 Lisinopril [Zestril] 20 mg PO BID 12/28/20 Meloxicam [Mobic] 15 mg PO DAILY 12/28/20 Mometasone/Formoterol [Dulera 100 Mcg-5 Mcg Inhaler] 2 puffs IH BID 12/28/20 [place]-3/Dha/Epa/Fish Oil [Fish Oil 1,000 mg Softgel] 1 cap PO DAILY 12/28/20 Sennosides/Docusate Sodium [Stool Softener-Laxative Tablet] 250 mg PO BID 12/28/20 Tiotropium [place] [Spiriva] 1 cap PO DAILY 12/28/20 allopurinoL [Zyloprim] 300 mg PO DAILY 12/28/20 cloNIDine [Catapres] 0.1 mg PO BID 12/28/20 Dorzolamide 2% Ophth Drops [Trusopt 2% Ophth Drops] 1 drops EACHEYE BID 09/21/21 Latanoprost 0.005% Ophth Drops [Xalatan Ophth Drops] 1 drops EACHEYE DAILY 09/21/21 Objective - Vital Signs/Intake & Output Reviewed Vital Signs: Yes Vital Signs: Vital Signs x48h Temp Pulse Pulse Resp BP Pulse Ox 10/28/21 17:00 98 28 H 114/87 H 92 10/28/21 16:00 36.4 C L 93 23 120/74 95 10/28/21 13:00 101 H 23 119/72 86 L 10/28/21 12:17 98 25 H 10/28/21 12:00 36.5 C 86 25 H 117/83 H 88 L 10/28/21 11:00 85 22 124/72 90 L 10/28/21 10:00 84 22 121/73 91 L Intake & Output: Intake & Output 10/25/21 10/26/21 10/27/21 10/28/21 23:59 23:59 23:59 23:59 Intake Total 2200 3810 3305 2200 Output Total 2100 2200 2875 3135 Balance 100 1610 430 -935 - Objective General Appearance: positive: No acute distress, Alert, Other (He really is maintaining. Will drop into the high 80s with high flow nasal cannula but is comfortable. I spent 30 minutes at the bedside with he, respiratory therapy and nursing and the whole time he was only minimally short of breath.) Eyes Bilateral: positive: PERRL, EOMI ENT: positive: No signs of dehydration Neck: positive: No JVD. negative: Stiff neck Respiratory: positive: No respiratory distress, Wheezes, Rhonchi. negative: Rales Cardiovascular: positive: Regular rate & rhythm. negative: Gallop/S4, Friction rub Abdomen: positive: Non-tender, No organomegaly, Nml bowel sounds, No distention Skin: positive: Warm, Dry, Pallor Extremities: positive: Full ROM, Pedal edema (Really only around his ankles and feet. Calves and shins are okay) Neurologic/Psychiatric: positive: Oriented x3, CN's nml (2-12) (Mildly to moderately deaf), Motor nml, Sensation nml - Lab Results Fish Bones: 10/28/21 04:16 10/28/21 04:16 Other Labs: Lab Results x24hrs 10/28/21 10/28/21 10/28/21 Range/Units 04:50 04:16 04:16 WBC (4.8-10.8) x10^3/uL RBC (4.70-6.10) 10^6/uL Hgb (14.0-18.0) g/dL Hct (42.0-52.0) % MCV (80.0-94.0) fL MCH (27.0-31.0) pg MCHC (32.0-36.0) g/dL RDW (12.0-15.0) % Plt Count (130-450) 10^3/uL MPV (7.4-11.4) fL Neut # (Auto) (1.5-6.6) 10^3/uL Lymph # (Auto) (1.5-3.5) 10^3/uL [place] # (Auto) (0.0-1.0) 10^3/uL Eos # (Auto) (0.0-0.7) 10^3/uL Baso # (Auto) (0.0-0.1) 10^3/uL Absolute Nucleated RBC x10^3/uL Nucleated RBC % /100WBC D-Dimer > 1050.0 H (200.0-255.0) ng/mL VBG pH 7.395 (7.31-7.41) Ionized Calcium 1.18 (1.15-1.33) mmol/L Sodium (135-145) mmol/L Potassium (3.5-5.0) mmol/L Chloride (101-111) mmol/L Carbon Dioxide (21-32) mmol/L Anion Gap (6-13) BUN (6-20) mg/dL Creatinine (0.6-1.2) mg/dL Estimated GFR (MDRD) (>89) Glucose (70-100) mg/dL Calcium (8.5-10.3) mg/dL Phosphorus 2.8 (2.5-4.6) mg/dL Magnesium 1.9 (1.7-2.8) mg/dL 10/28/21 10/28/21 Range/Units 04:16 04:16 WBC 14.4 H (4.8-10.8) x10^3/uL RBC 4.02 L (4.70-6.10) 10^6/uL Hgb 12.7 L (14.0-18.0) g/dL Hct 39.4 L (42.0-52.0) % MCV 98.0 H (80.0-94.0) fL MCH 31.6 H (27.0-31.0) pg MCHC 32.2 (32.0-36.0) g/dL RDW 13.9 (12.0-15.0) % Plt Count 213 (130-450) 10^3/uL MPV 10.7 (7.4-11.4) fL Neut # (Auto) 11.3 H (1.5-6.6) 10^3/uL Lymph # (Auto) 1.2 L (1.5-3.5) 10^3/uL [place] # (Auto) 1.5 H (0.0-1.0) 10^3/uL Eos # (Auto) 0.0 (0.0-0.7) 10^3/uL Baso # (Auto) 0.0 (0.0-0.1) 10^3/uL Absolute Nucleated RBC 0.00 x10^3/uL Nucleated RBC % 0.0 /100WBC D-Dimer (200.0-255.0) ng/mL VBG pH (7.31-7.41) Ionized Calcium (1.15-1.33) mmol/L Sodium 137 (135-145) mmol/L Potassium 4.2 (3.5-5.0) mmol/L Chloride 102 (101-111) mmol/L Carbon Dioxide 29 (21-32) mmol/L Anion Gap 6.0 (6-13) BUN 21 H (6-20) mg/dL Creatinine 0.6 (0.6-1.2) mg/dL Estimated GFR (MDRD) 128 (>89) Glucose 127 H (70-100) mg/dL Calcium 8.1 L (8.5-10.3) mg/dL Phosphorus (2.5-4.6) mg/dL Magnesium (1.7-2.8) mg/dL ABX Reporting Has patient been on IV antibiotics over the past 48 hours?: Yes Assessment/Plan - Problem List (1) Acute respiratory failure with hypoxia Impression: This gentleman already has chronic respiratory failure due to COPD/centrilobular emphysema. He was given 2 L nasal cannula a few years ago but has never really used it. When he was admitted in August I think that that was not really recognized. We just noted that he did not take oxygen. He was discharged from the August admission on anywhere between 3 to 5 L. With current COPD exacerbation and Covid infection, he has decompensated and now needs BiPAP. He is a DO NOT RESUSCITATE with a POLST form that is already in his PCP office. He is willing to do BiPAP. The cause of his acute respiratory failure with hypoxia is another COPD exacerbation due to COVID-19 pneumonia. He also has multiple bilateral pulmonary emboli. When he initially came in, BiPAP made him feel so much better. He was able to come off of it to eat and then go back on it. Then for approximately 48 hours. He was very dependent on it, and became very frightened and felt like he was going to soon. Asked that his family members come in and see him and they all have. He also asked to be prepared for and wanted a palliative care consultation and that was done. Everything is in place for him to go home with hospice. He would like to be discharged on Thursday, October 30. Over the last 2 days, however, he has actually slowly improved. He has been off BiPAP since last night. He is much more comfortable with high flow nasal cannula and mild hypoxemia and O2 sats in the high 80s. I did cautiously offer optimism. Covid patients have an interesting response to illness and tolerate hypoxia much better than most people with think. But he says that he doesn't change his mind. He is willing to stay till October 30 for us but after that he would like to go home. If he makes it that would be wonderful, if he doesn't he is prepared and is that his goodbyes and is grateful that hospice will be helpful. (2) COPD exacerbation Conclusion/Plan: He is already on long-acting bronchodilators. Mainly beta agonist. He does not like Spiriva. And has not been using it very much. Plan: Decadron 6 mg is already being used for Covid Continue Perforomist and budesonide Fixed schedule of DuoNeb Albuterol as needed Secretion control and will order Acapella/incentive spirometry Mucinex I added empiric antibiotics to see if it helps with azithromycin 2/3-2/5 Palliative Care consult called for and she saw him. Please refer to her note. Thank you for your help in the care of this ginger man. (3) COVID-19 Conclusion/Plan: Groundglass opacities, interstitial infiltrate. Acute on chronic hypoxia. Patient has been vaccinated Plan: Remdesivir completed 5 days on 2/5 Decadron for 10 days Day #03/30 (4) Pulmonary emboli Conclusion/Plan: Due to sedentary status. In the past has been treated as "venous stasis" but I think the patient has peripheral vascular disease is arterial. Ulcers have been in the calves. Is already been treated in the medical ambulatory clinic in the past. Plan: Eliquis 10 mg p.o. twice daily Qualifiers: Pulmonary embolism type: multiple subsegmental (without acute cor pulmonale) Qualified Code(s): I26.94 - Multiple subsegmental pulmonary emboli without acute cor pulmonale (5) BPH (benign prostatic hyperplasia) Conclusion/Plan: Chronic, long-term problem. Already having symptoms of retention in the ICU and unable to void. Plan: Holly insertion Day #7 Flomax Qualifiers: Lower urinary tract symptom presence: symptoms absent Qualified Code(s): N40.0 - Benign prostatic hyperplasia without lower urinary tract symptoms (6) Continuous dependence on cigarette smoking Conclusion/Plan: He smoked anywhere from 2/3 to 1 pack/day since the age of 19. He is now age 86. On 7 mg patch for nicotine dependence. (7) Hypertension Conclusion/Plan: At home he uses clonidine tablets, lisinopril 20 twice daily. Those have been resumed. Qualifiers: Hypertension type: primary hypertension Qualified Code(s): I10 - Essential (primary) hypertension (8) Glucose intolerance (impaired glucose tolerance) Conclusion/Plan: In review of his medical chart, he has a history of glucose intolerance. With his last admission of inhaled steroids, he did well and did not need much management of glucose. However I will be giving him IV Decadron. I started him on sliding scale insulin. If needed I will add Lantus. 2/: 200, 151 2/2: 101, 142, 132 2/3: 99, 143, 139, 161 2/4: 100, 207, 157, 120 2/5: 104, 135, 175,205 2/6: 120, 187, 153, 186 2: 86, 155, 193 no new orders. (9) AAA (abdominal aortic aneurysm) Conclusion/Plan: He was already at criteria that would require surgery. However when he was evaluated by vascular surgery at [facility], and [facility], there was significant risk associated with repair of either a sending aorta or abdominal aorta. The patient was clear in discussion with the vascular surgeon that he did not want intervention. Risk was quoted at 8 to 10 %/year of rupture. Qualifiers: Presence of rupture: without rupture Qualified Code(s): I71.4 - Abdominal aortic aneurysm, without rupture (10) Glaucoma Conclusion/Plan: I have ordered his eyedrops from home to be brought in. Our pharmacy does not stock them. Qualifiers: Glaucoma type: unspecified (11) Difficult intravenous access Conclusion/Plan: I have asked anesthesia to come place a PICC line in this ginger man. Unable to place 10/22 and central line done 2/. (12) sacral pressure ulcers present on admission and photos document red, pink skin, warm to touch, flaking. RN to follow protocol
[2021-10-28] MEDS: TAMSULOSIN 0.4 MG CAPSULE PO SCH (20:59)
[2021-10-28] MEDS: LATANOPROST 0.005% OPHTH DROPS EACHEYE SCH (21:00)
[2021-10-29 04:58] LABS: CALCIUM 8.6 mg/dL (8.5-10.3); CREATININE 0.8 mg/dL (0.6-1.2)
[2021-10-29] MEDS: cloNIDine 0.1 MG TABLET PO SCH ×2 (05:25→10:28)
[2021-10-29] MEDS: lisinopriL 20 MG TABLET PO SCH ×2 (05:25→10:28)
[2021-10-29] MEDS: MORPHINE 2 MG/ML CARPUJECT IVP PRN ×3 (06:02→10:49)
[2021-10-29] MEDS: SODIUM CHLORIDE FLUSH 0.9% 10 ML SYRINGE IVP SCH ×4 (07:01→21:04)
[2021-10-29] MEDS: INSULIN ASPART 300 UNIT/3 ML PEN SUBQ SCH (08:51)
[2021-10-29] MEDS ORDERED: APIXABAN 5 MG TABLET PO SCH (09:00)
--- NOTE | 2021-10-29 09:02 | PROVIDER PROGRESS NOTE ---
Assessment/Plan - Problem List (1) Acute respiratory failure with hypoxia Assessment/Plan: Likely multifactorial secondary to COPD/centrilobular emphysema, recent Covid infection. Patient was on BiPAP. This was deescalated to high flow nasal cannula. However he had still been dyspneic on high flow. After conversation with the patient today he was very clear on wanting to be made comfort care. He was seen by the palliative care nurse Mercedes Dill. The plan is for hospice admission upon arrival at home. Hospice will see him tomorrow 10/30/2021 at 4 PM. Comfort care orders have been placed. We will continue oxygen for Comfort. Morphine and Ativan ordered every 6 hours as needed. (2) COVID-19 Assessment/Plan: Patient completed remdesivir. He had been vaccinated for COVID-19. Chest x-ray shows similar bilateral patchy airspace opacity consistent with mult ifocal pneumonia. Patient has been made comfort care Oxygen and breathing treatments directed for comfort. Patient will be admitted to hospice on 10/30/2021 around 4 PM. (4) Pulmonary emboli Qualifiers: Qualified Code(s): I26.94 - Multiple subsegmental pulmonary emboli without acute cor pulmonale - Current Meds Current Meds: Current Medications Generic Name Dose Route Start Last Admin Trade Name Freq PRN Reason Stop Dose Admin Allopurinol 300 mg 10/23/21 09:00 10/28/21 08:30 Allopurinol 100 Mg Tablet PO 300 mg DAILY KYE Administration Ceftriaxone Sodium 2 gm 10/24/21 13:21 10/28/21 08:30 Ceftriaxone 2 Gm Vial IVP 2 gm DAILY KYE Administration Chlorhexidine Gluconate 15 ml 10/22/21 12:00 10/28/21 20:59 Chlorhexidine Gluconate 15 Ml Udc PO 15 ml BID KYE Administration Cholecalciferol 50 mcg 10/23/21 10:00 10/28/21 08:30 Cholecalciferol 25 Mcg Tablet PO 50 mcg DAILY KYE Administration Clonidine HCl 0.1 mg 10/25/21 16:41 10/29/21 05:25 Clonidine 0.1 Mg Tablet PO Not Given BID KYE Dexamethasone 6 mg 10/23/21 09:00 10/28/21 08:31 Dexamethasone 10 Mg/Ml Vial IVP 6 mg DAILY KYE Administration Docusate Sodium 250 - 500 mg 10/28/21 09:00 10/28/21 08:30 Docusate Sodium 250 Mg Capsule PO 500 mg DAILY KYE Administration Dorzolamide HCl 1 drops 10/22/21 21:00 10/28/21 21:00 Dorzolamide 2% Ophth Drops EACHEYE 1 drops BID KYE Administration Insulin Aspart 1 - 9 unit 10/22/21 17:00 10/29/21 08:51 Insulin Aspart 300 Unit/3 Ml Pen SUBQ Not Given 0800,1200,1700,2100 [facility] Protocol Latanoprost 1 drops 10/22/21 21:00 10/28/21 21:00 Latanoprost 0.005% Ophth Drops EACHEYE 1 drops QPM KYE Administration Lisinopril 20 mg 10/25/21 16:41 10/29/21 05:25 Lisinopril 20 Mg Tablet PO Not Given BID [facility] Morphine Sulfate 2 mg 10/24/21 08:06 10/29/21 06:02 Morphine 2 Mg/Ml Carpuject IVP 2 mg Q2HR PRN Administration PAIN Multi-Ingredient Ointment 1 applic 10/22/21 14:36 10/25/21 15:00 Zinc Oxide 20% Oint 30 Gm Tube TOP 1 applic PRN PRN Administration Skin Care Nicotine 1 patch 10/23/21 17:44 10/28/21 08:29 Nicotine 7 Mg Patch TOP 1 patch DAILY KYE Administration Polyethylene Glycol 17 gm 10/23/21 09:00 10/28/21 08:31 Polyethylene Glycol 3350 17 Gm Packet PO 17 gm DAILY KYE Administration Senna 8.6 - 17.2 mg 10/23/21 09:00 10/28/21 08:29 Senna 8.6 Mg Tablet PO 17.2 mg DAILY KYE Administration Sodium Chloride 10 ml 10/22/21 17:00 10/29/21 07:01 Sodium Chloride Flush 0.9% 10 Ml Syringe IVP 10 ml 0100,0900,1700 KYE Administration Sodium Chloride 10 ml 10/22/21 09:30 10/28/21 05:06 Sodium Chloride Flush 0.9% 10 Ml Syringe IVP 10 ml PRN PRN Administration NEEDED PER PROVIDER ORDERS Sodium Chloride 20 ml 10/24/21 03:55 10/28/21 05:06 Sodium Chloride Flush 0.9% 10 Ml Syringe IVP 20 ml PRN PRN Administration After Blood Draw Tamsulosin HCl 0.4 mg 10/22/21 21:00 10/28/21 20:59 Tamsulosin 0.4 Mg Capsule PO 0.4 mg QPM KYE Administration - Lab Result Fish Bone Diagrams: 10/28/21 04:16 10/29/21 04:40 - Additional Planning My Orders: My Active Orders 10/29/21 08:45 Chest 1 View X-Ray [XR] Stat Subjective - Subjective Patient Reports: Other (Patient was on high flow nasal cannula during this visit. He has been having some dyspnea today and was given several doses of morphine for air hunger. Oxygen saturation was 90% on 40 L of oxygen at an FiO2 of 80% on the high flow. He was very clear on his wishes to be made comfort care.) Objective Vital Signs: Vital Signs - 24 hr 10/28/21 10/28/21 10/28/21 10:00 11:00 12:00 Temperature 36.5 C Heart Rate Heart Rate [ 84 85 86 Monitoring electrodes] Respiratory 22 22 25 H Rate Blood Pressure 121/73 124/72 117/83 H [Left Brachial artery] O2 Saturation 91 L 90 L 88 L 10/28/21 10/28/21 10/28/21 12:17 13:00 16:00 Temperature 36.4 C L Heart Rate 98 Heart Rate [ 101 H 93 Monitoring electrodes] Respiratory 25 H 23 23 Rate Blood Pressure 119/72 120/74 [Left Brachial artery] O2 Saturation 86 L 95 10/28/21 10/28/21 10/28/21 17:00 18:00 19:00 Temperature Heart Rate Heart Rate [ 98 90 90 Monitoring electrodes] Respiratory 28 H 29 H 26 H Rate Blood Pressure 114/87 H 122/77 113/72 [Left Brachial artery] O2 Saturation 92 93 94 10/28/21 10/28/21 10/28/21 20:00 21:00 22:00 Temperature 36.6 C Heart Rate Heart Rate [ 86 82 83 Monitoring electrodes] Respiratory 25 H 33 H 20 Rate Blood Pressure 134/88 H 109/71 110/71 [Left Brachial artery] O2 Saturation 96 93 96 10/28/21 10/28/21 10/29/21 22:08 22:53 01:00 Temperature Heart Rate Heart Rate [ 78 79 86 Monitoring electrodes] Respiratory 19 20 21 Rate Blood Pressure 113/81 H 93/56 L [Left Brachial artery] O2 Saturation 96 96 90 L 10/29/21 10/29/21 10/29/21 02:00 03:00 04:00 Temperature Heart Rate Heart Rate [ 80 73 71 Monitoring electrodes] Respiratory 22 21 18 Rate Blood Pressure 94/48 L 89/56 L 99/60 [Left Brachial artery] O2 Saturation 92 95 91 L 10/29/21 10/29/21 10/29/21 05:00 06:00 07:00 Temperature Heart Rate Heart Rate [ 81 81 78 Monitoring electrodes] Respiratory 29 H 25 H 23 Rate Blood Pressure 101/63 115/68 85/63 L [Left Brachial artery] O2 Saturation 88 L 87 L 95 Oxygen O2 Source [facility] Oxygen Flow Rate 12 I&O (Last 24 Hrs): Intake and Output Totals x24h 10/27/21 10/28/21 10/29/21 23:59 23:59 23:59 Intake Total 3305 2770 950 Output Total 2875 3670 785 Balance 430 -900 165 General: Alert, Oriented x3, Mild distress, Moderate distress HEENT: PERRLA, EOMI Neck: Supple, No JVD Cardiovascular: Regular rate, No murmurs Respiratory: Other (Right sided rib tenderness, coarse breath sounds) Abdomen: Normal bowel sounds, Soft, No tenderness Extremities: No clubbing, No cyanosis - Results Results: Laboratory Results WBC 14.4 x10^3/uL (4.8-10.8) H 10/28/21 04:16 RBC 4.02 10^6/uL (4.70-6.10) L 10/28/21 04:16 Hgb 12.7 g/dL (14.0-18.0) L 10/28/21 04:16 Hct 39.4 % (42.0-52.0) L 10/28/21 04:16 MCV 98.0 fL (80.0-94.0) H 10/28/21 04:16 MCH 31.6 pg (27.0-31.0) H 10/28/21 04:16 MCHC 32.2 g/dL (32.0-36.0) 10/28/21 04:16 RDW 13.9 % (12.0-15.0) 10/28/21 04:16 Plt Count 213 10^3/uL (130-450) 10/28/21 04:16 MPV 10.7 fL (7.4-11.4) 10/28/21 04:16 Neut # (Auto) 11.3 10^3/uL (1.5-6.6) H 10/28/21 04:16 Lymph # (Auto) 1.2 10^3/uL (1.5-3.5) L 10/28/21 04:16 Douglas # (Auto) 1.5 10^3/uL (0.0-1.0) H 10/28/21 04:16 Eos # (Auto) 0.0 10^3/uL (0.0-0.7) 10/28/21 04:16 Baso # (Auto) 0.0 10^3/uL (0.0-0.1) 10/28/21 04:16 Absolute Nucleated RBC 0.00 x10^3/uL 10/28/21 04:16 Nucleated RBC % 0.0 /100WBC 10/28/21 04:16 D-Dimer > 1050.0 ng/mL (200.0-255.0) H 10/29/21 04:40 Bld Gas Analysis Time 1035 10/26/21 10:27 Sample Site LEFT RADIAL 10/26/21 10:27 ABG pH 7.44 (7.35-7.45) 10/26/21 10:27 ABG pCO2 39 mmHg (34-45) 10/26/21 10:27 ABG pO2 135 mmHg (80-100) H 10/26/21 10:27 ABG HCO3 26.0 mmol/L (22.0-26.0) 10/26/21 10:27 ABG Total CO2 27.2 MMOL/L (21.0-29.0) 10/26/21 10:27 ABG O2 Saturation 99 % (94-98) H 10/26/21 10:27 ABG Base Excess 1.9 mmol/L (-2.0-3.0) 10/26/21 10:27 Mauricio Test POSITIVE 10/26/21 10:27 VBG pH 7.395 (7.31-7.41) 10/28/21 04:16 VBG pCO2 50.7 mmHg (41-51) 10/22/21 05:55 VBG pO2 20.7 mmHg (25-47) L 10/22/21 05:55 VBG HCO3 29.6 mmol/L (23-28) H 10/22/21 05:55 VBG Total CO2 31.1 mmol/L (24-29) H 10/22/21 05:55 VBG O2 Saturation 35.0 % (60-80) L 10/22/21 05:55 VBG Base Excess 3.5 mmol/L (-2 - +2) H 10/22/21 05:55 Ionized Calcium 1.18 mmol/L (1.15-1.33) 10/28/21 04:16 O2 Delivery Device BiPAP 10/26/21 10:27 Vent Mode SYNCHRONOUS/TIMES 10/26/21 10:27 FiO2 100.00 10/26/21 10:27 EPAP 5 cmH2O 10/26/21 10:27 IPAP 12 cmH2O 10/26/21 10:27 Sodium 137 mmol/L (135-145) 10/29/21 04:40 Potassium 4.0 mmol/L (3.5-5.0) 10/29/21 04:40 Chloride 100 mmol/L (101-111) L 10/29/21 04:40 Carbon Dioxide 30 mmol/L (21-32) 10/29/21 04:40 Anion Gap 7.0 (6-13) 10/29/21 04:40 BUN 25 mg/dL (6-20) H 10/29/21 04:40 Creatinine 0.8 mg/dL (0.6-1.2) 10/29/21 04:40 Estimated GFR (MDRD) 92 (>89) 10/29/21 04:40 Glucose 118 mg/dL (70-100) H 10/29/21 04:40 Lactic Acid 1.5 mmol/L (0.5-2.2) 10/22/21 06:27 Calcium 8.6 mg/dL (8.5-10.3) 10/29/21 04:40 Phosphorus 2.8 mg/dL (2.5-4.6) 10/28/21 04:16 Magnesium 1.9 mg/dL (1.7-2.8) 10/28/21 04:16 Total Bilirubin 1.7 mg/dL (0.2-1.0) H 10/22/21 05:16 AST 31 IU/L (10-42) 10/22/21 05:16 ALT 22 IU/L (10-60) 10/22/21 05:16 Alkaline Phosphatase 109 IU/L (42-121) 10/22/21 05:16 Troponin I High Sens 22.5 ng/L (2.3-19.7) H* 10/22/21 05:16 B-Natriuretic Peptide 285 pg/mL (5-100) H 10/22/21 05:16 Total Protein 6.3 g/dL (6.7-8.2) L 10/22/21 05:16 Albumin 2.7 g/dL (3.2-5.5) L 10/22/21 05:16 Globulin 3.6 g/dL (2.1-4.2) 10/22/21 05:16 Albumin/Globulin Ratio 0.8 (1.0-2.2) L 10/22/21 05:16 Lipase 25 U/L (22-51) 10/22/21 05:16 25-OH Vitamin D Total 22 ng/mL (30-100) L 10/22/21 05:16 Nasal Adenovirus (PCR) NOT DETECTED 10/22/21 05:16 Nasal B. parapertussis DNA (PCR) NOT DETECTED 10/22/21 05:16 Nasal Coronavir 229E PCR NOT DETECTED 10/22/21 05:16 Nasal Coronavir HKU1 PCR NOT DETECTED 10/22/21 05:16 Nasal Coronavir NL63 PCR NOT DETECTED 10/22/21 05:16 Nasal Coronavir OC43 PCR NOT DETECTED 10/22/21 05:16 Nasal Enterovir/Rhinovir PCR NOT DETECTED 10/22/21 05:16 Nasal Influenza B PCR NOT DETECTED 10/22/21 05:16 Nasal Influenza A PCR NOT DETECTED 10/22/21 05:16 Nasal Parainfluen 1 PCR NOT DETECTED 10/22/21 05:16 Nasal Parainfluen 2 PCR NOT DETECTED 10/22/21 05:16 Nasal Parainfluen 3 PCR NOT DETECTED 10/22/21 05:16 Nasal Parainfluen 4 PCR NOT DETECTED 10/22/21 05:16 Nasal RSV (PCR) NOT DETECTED 10/22/21 05:16 Nasal Screen MRSA (PCR) NEGATIVE (NEGATIVE) 10/22/21 13:45 Nasal B.pertussis DNA PCR NOT DETECTED 10/22/21 05:16 Nasal C.pneumoniae (PCR) NOT DETECTED 10/22/21 05:16 Sharad Human Metapneumo PCR NOT DETECTED 10/22/21 05:16 Nasal M.pneumoniae (PCR) NOT DETECTED 10/22/21 05:16 Nasal SARS-CoV-2 (PCR) DETECTED A 10/22/21 05:16
--- NOTE | 2021-10-29 09:11 | XRAY Report ---
PROCEDURE: Chest 1 View X-Ray INDICATIONS: right pleuritic chest pain TECHNIQUE: One view of the chest was acquired. COMPARISON: CXR 10/23/2021. CT pulmonary angiogram 10/22/2021. FINDINGS: Surgical changes and devices: Right-sided PICC line with the catheter tip at the lower third of the S VC.. Lungs and pleura: No pleural effusions or pneumothorax. Similar patchy opacity at the left lower lob e and right midlung field. Mediastinum: Mediastinal contours appear unchanged. Aortic arch atherosclerotic calcifications.. He art size is enlarged. Bones and chest wall: No suspicious bony lesions. Overlying soft tissues appear unremarkable. IMPRESSION: Similar bilateral patchy airspace opacity consistent with multifocal pneumonia. Reviewed by: Waldo Ramirez MD on 10/29/2021 9:09 AM [facility] Approved by: Waldo Ramirez MD on 10/29/2021 9:09 AM [facility] Station ID: [id number]
[2021-10-29] MEDS: CHLORHEXIDINE GLUCONATE 15 ML UDC PO SCH ×2 (10:26→21:03)
[2021-10-29] MEDS: NICOTINE 7 MG PATCH TOP SCH (10:26)
[2021-10-29] MEDS: cefTRIAXone 2 GM VIAL IVP SCH (10:26)
[2021-10-29] MEDS: SENNA 8.6 MG TABLET PO SCH (10:26)
[2021-10-29] MEDS: CHOLECALCIFEROL 25 MCG TABLET PO SCH (10:27)
[2021-10-29] MEDS: allopurinoL 100 MG TABLET PO SCH (10:27)
[2021-10-29] MEDS: DOCUSATE SODIUM 250 MG CAPSULE PO SCH (10:28)
[2021-10-29] MEDS: DEXAMETHASONE 10 MG/ML VIAL IVP SCH (10:28)
[2021-10-29] MEDS: polyethylene glycoL 3350 17 GM PACKET PO SCH (10:29)
[2021-10-29] MEDS: DORZOLAMIDE 2% OPHTH DROPS EACHEYE SCH (10:30)
[2021-10-29] MEDS ORDERED: LORazepam 1 MG TABLET PO PRN (12:48)
[2021-10-29] MEDS ORDERED: GLYCOPYRROLATE 1 MG/5 ML VIAL SUBQ PRN (12:51)
[2021-10-29] MEDS: MAGIC MOUTHWASH (NYSTATIN) 120 ML BOTTLE PO PRN (14:37)
[2021-10-29] MEDS: MORPHINE IR 15 MG TABLET PO PRN ×2 (14:38→21:03)
[2021-10-29] MEDS: FLUCONAZOLE 100 MG TABLET PO SCH (14:38)
--- NOTE | 2021-10-29 20:59 | CONSULTATION NOTE ---
Palliative Care Follow Up - Referral Referring Provider: Dr. Tracee Valles Time of Visit: Referral setting: Hospitalized patient Referral Reason: COVID Pneumonia/COPD Exacerbation/Oral Candidiasis/Goals of CAre - Information Sources Records reviewed: Previous records reviewed History/Review of Systems obtained from: Patient (Daughters at bedside x 2) Exam limitations: Clinical condition (patient getting more tired; respiratory effort fatigues easily) - History of Present Illness Update Brief HPI Update: This is a ginger 86-year-old gentleman with a diagnosis of acute respiratory failure with hypoxia due to COPD/centrilobular emphysema, COPD exacerbation, COVID-19 and pulmonary emboli on 10/22. Patient continues to be quite frail, has not improved as far as ability to wean off oxygen, still requires high flow. Did have episode of some increased right chest discomfort this morning, does feel the morphine is effective as far as his breathlessness, he is prepared for his ongoing decline. His goals are to transition home and be with his family, recognizing this may be a fairly quick demise. His two daughters are at bedside, family is supportive of his transition.At this point in time the goal is to get equipment set up, medications in place, transport to home with delivery, and meet hospice nurse at 4:00 pm tomorrow. Past Medical History: Hypertension, peripheral vascular disease, pulmonary embolism, angina, COPD, emphysema, recent CAP, history of CVA, colon polyps, chronic constipation, BPH, known renal mass, glaucoma, chronic hearing loss, osteoarthritis of spine and hips, gout, chronic back pain, eczema, basal cell carcinoma, venous stasis dermatitis. Social History - Living Situation Living arrangement: At home Living Situation: With family Support System: Patient lives at home with his daughter Mel, they have lived together for 10 years since the of his . He reports this has worked very well. He does have 7 children total, 4 daughters and 3 sons. He has been for 11 years, he shared some about his ginger marriage, time in [employer], [employer] career, has felt like he has lived a full and productive life. Medications/Allergies - Medications Active Medication List: Active Medications Acetaminophen (Acetaminophen 325 Mg Tablet) 650 mg PO Q4HR PRN PRN Reason: Pain 1 to 4 Albuterol (Albuterol Neb 2.5 Mg/3 Ml) 2.5 mg INH Q4H PRN PRN Reason: Wheezing Albuterol/Ipratropium (Ipratropium/Albuterol 3 Ml Neb) 3 ml INH RTQID PRN PRN Reason: Wheezing Bisacodyl (Bisacodyl 10 Mg Supp) 10 mg NH DAILY PRN PRN Reason: Constipation Chlorhexidine Gluconate (Chlorhexidine Gluconate 15 Ml Udc) 15 ml PO BID [facility] Last Admin: 10/29/21 10:26 Dose: 15 ml Docusate Sodium (Docusate Sodium 250 Mg Capsule) 250 - 500 mg PO DAILY [facility] Last Admin: 10/29/21 10:28 Dose: Not Given Fluconazole (Fluconazole 100 Mg Tablet) 100 mg PO DAILY [facility] Last Admin: 10/29/21 14:38 Dose: 100 mg Glycopyrrolate (Glycopyrrolate 1 Mg/5 Ml Vial) 0.2 mg SUBQ Q4H PRN PRN Reason: Excessive secretions Lorazepam (Lorazepam 1 Mg Tablet) 1 mg PO Q6H PRN PRN Reason: Anxiety Morphine Sulfate (Morphine Ir 15 Mg Tablet) 15 mg PO Q6HR PRN PRN Reason: PAIN Last Admin: 10/29/21 14:38 Dose: 15 mg Multi-Ingredient Mouthwash/Gargle (Magic Mouthwash (Nystatin) 120 Ml Bottle) 30 ml PO Q4H PRN PRN Reason: Mouth Sore Pain Last Admin: 10/29/21 14:37 Dose: 30 ml Multi-Ingredient Ointment (Zinc Oxide 20% Oint 30 Gm Tube) 1 applic TOP PRN PRN PRN Reason: Skin Care Last Admin: 10/25/21 15:00 Dose: 1 applic Nicotine (Nicotine 7 Mg Patch) 1 patch TOP DAILY [facility] Last Admin: 10/29/21 10:26 Dose: 1 patch Ondansetron HCl (Ondansetron Odt 4 Mg Tablet) 4 mg TL Q6HR PRN PRN Reason: Nausea / Vomiting Ondansetron HCl (Ondansetron 4 Mg/2 Ml Vial) 4 mg IVP Q6HR PRN PRN Reason: Nausea / Vomiting Oxycodone HCl (Oxycodone 5 Mg Tablet) 5 mg PO Q4HR PRN PRN Reason: Pain 5 to 7 Last Admin: 10/29/21 09:02 Dose: 5 mg Polyethylene Glycol (Polyethylene Glycol 3350 17 Gm Packet) 17 gm PO DAILY [facility] Last Admin: 10/29/21 10:29 Dose: 17 gm Senna (Senna 8.6 Mg Tablet) 8.6 - 17.2 mg PO DAILY [facility] Last Admin: 10/29/21 10:26 Dose: 17.2 mg Sodium Chloride (Sodium Chloride Flush 0.9% 10 Ml Syringe) 10 ml IVP 0100,0900,1700 [facility] Last Admin: 10/29/21 16:01 Dose: 10 ml Sodium Chloride (Sodium Chloride Flush 0.9% 10 Ml Syringe) 10 ml IVP PRN PRN PRN Reason: NEEDED PER PROVIDER ORDERS Last Admin: 10/28/21 05:06 Dose: 10 ml Sodium Chloride (Sodium Chloride Flush 0.9% 10 Ml Syringe) 20 ml IVP PRN PRN PRN Reason: After Blood Draw Last Admin: 10/28/21 05:06 Dose: 20 ml Albuterol 2.5 mg INH Q4H PRN 12/28/20 Alfuzosin HCl [Uroxatral] 10 mg PO DAILY 12/28/20 Lisinopril [Zestril] 20 mg PO BID 12/28/20 Meloxicam [Mobic] 15 mg PO DAILY 12/28/20 Mometasone/Formoterol [Dulera 100 Mcg-5 Mcg Inhaler] 2 puffs IH BID 12/28/20 [place]-3/Dha/Epa/Fish Oil [Fish Oil 1,000 mg Softgel] 1 cap PO DAILY 12/28/20 Sennosides/Docusate Sodium [Stool Softener-Laxative Tablet] 250 mg PO BID 12/28/20 Tiotropium Coker [Spiriva] 1 cap PO DAILY 12/28/20 allopurinoL [Zyloprim] 300 mg PO DAILY 12/28/20 cloNIDine [Catapres] 0.1 mg PO BID 12/28/20 Dorzolamide 2% Ophth Drops [Trusopt 2% Ophth Drops] 1 drops EACHEYE BID 09/21/21 Latanoprost 0.005% Ophth Drops [Xalatan Ophth Drops] 1 drops EACHEYE DAILY 09/21/21 - Allergies Allergies/Adverse Reactions: Allergies Allergy/AdvReac Type Severity Reaction Status Date / Time merbromin Allergy Rash Verified 10/22/21 18:54 [From Mercurochrome] Penicillins Allergy Unknown Verified 10/22/21 05:56 shellfish derived Allergy Unknown Verified 10/22/21 05:56 clopidogrel [From Plavix] AdvReac Cramps Verified 10/22/21 18:55 Review of Systems - Constitutional Constitutional: reports: Fatigue, Weakness, Weight loss - Eyes Eyes: reports: Vision loss - Ears, Nose & Throat Ears, Nose & Throat: reports: Hearing loss, Hoarseness, Mouth lesions (c/o dry mouth and pain), Dry mouth - Cardiovascular Cardiovascular: reports: Exertional dyspnea, Decr. exercise tolerance. denies: Chest pain - Respiratory Respiratory: reports: Cough (dry intermittent), Orthopnea, SOB at rest, SOB with exertion, Pleuritic pain (right side) - Gastrointestinal Gastrointestinal: reports: Early satiety - Genitourinary Genitourinary: reports: Other (currently has bautista cathetr) - Musculoskeletal Musculoskeletal: reports: Muscle aches, Stiffness, Limited range of motion, Muscle weakness, Other (bed bound) - Integumentary Integumentary: reports: Dryness, Other (pressure wound) - Neurological Neurological: reports: General weakness - Psychiatric Psychiatric: denies: Depression, Anxiety - Hematologic/Lymphatic Hematologic/Lymph: reports: Recurrent infections (recently hospitalized with CAP) - All Other Systems All Other Systems: reports: Other (limited given patients fatigue level) Physical Exam - Physical Exam General Appearance: positive: Mild distress Eyes Bilateral: negative: Conjunctivae nml (eyes reddened) ENT: positive: Oral lesions (buccal area with thick white patches), Dry mucous membranes Neck: positive: Trachea midline Cardiovascular: positive: Regular rate & rhythm Respiratory: negative: No respiratory distress (respiratory effort with any conversation) Abdomen: positive: Soft, Obese Skin: positive: Dryness, Pressure wound Extremities: positive: Other (laying in bed) Neurologic/Psychiatric: positive: Disoriented to time, Weakness, Depressed mood/affect, Flat affect Palliative Care - POLST Patient has POLST: Yes POLST Status: DNR, Comfort Measures (completed POLST with DNAR/AND and Comfort measures) Pain: Location (right chest area improved) Feelings of wellbeing/Perceived Quality of Life: Poor, Worsening Performance Status: patient has been bedbound for most of hospitalization, needing some assist for repositioning - Palliative Care Discussion: Patient appears both emotionally and physically fatigued, is looking forward to going home. Revisited again patient's question regarding "pulling the plug". We discussed that he is making the decision, does not need to worry about it falling to his children, that we will fill out the POLST with DN AR and comfort measures. In transitioning home, focus will be on keeping him comfortable, and reviewed most likely given his current oxygen requirements will have a quick transition to end-of-life. He is looking forward to being with his family and is not fearful of the dying process. Just would like to be comfortable. His daughters at bedside, reviewed patient most likely will have a quick decline, sometimes this is unpredictable. But patient is quite exhausted, they are expecting him home to tomorrow at four with admission to hospice. Results - Lab Results Lab results reviewed: Yes Fish Bones: 10/28/21 04:16 10/29/21 04:40 Lab and Imaging Results: Lab Results x24hrs 10/29/21 10/29/21 Range/Units 04:40 04:40 D-Dimer > 1050.0 H (200.0-255.0) ng/mL Sodium 137 (135-145) mmol/L Potassium 4.0 (3.5-5.0) mmol/L Chloride 100 L (101-111) mmol/L Carbon Dioxide 30 (21-32) mmol/L Anion Gap 7.0 (6-13) BUN 25 H (6-20) mg/dL Creatinine 0.8 (0.6-1.2) mg/dL Estimated GFR (MDRD) 92 (>89) Glucose 118 H (70-100) mg/dL Calcium 8.6 (8.5-10.3) mg/dL Impression and Recommendations - Palliative Care Impression: This is a ginger 86-year-old gentleman who continues to struggle with the sequela of his Covid pneumonia, rest acute on respiratory failure, and COPD exacerbation. Patient has been treated with antibiotics and steroids, now presents with oral candidiasis. Patient looking forward to transitioning home, recognizing most likely will lead to a fairly quick end-of-life event. Recommendations/Counseling Done: 1. Oral candidiasis. Patient with high risk secondary to high-dose steroids, antibiotics, and oxygen/breathing treatments.Follow-up with hospitalist, Diflucan 100 mg ordered daily. Patient to fatigue to do nystatin swish and swallow. 2. Advanced care planning. Completed the POLST to be able to transition with ambulance transfer. Goal is for patient to be home, will be admitted to hospice. Consult with hospitalist to get oral medications and home prior to discharge. Follow-up with hospice medical staff services coordinator regarding patient's needs. Counseling with daughters at bedside. 30 minutes with greater than 50% of this done in counseling and coordination of care regarding patient's goals of care, anticipatory guidance, follow-up with hospice team and hospitalist.
[2021-10-30] MEDS: MAGIC MOUTHWASH (NYSTATIN) 120 ML BOTTLE PO PRN ×2 (06:16→11:45)
[2021-10-30] MEDS: MORPHINE SOL 10 MG/0.5 ML ORAL SYRINGE PO PRN ×3 (06:17→14:00)
--- NOTE | 2021-10-30 08:08 | DISCHARGE SUMMARY ---
Discharge Summary Admit Date: 10/22/21 Discharge Date: 10/30/21 Discharging Provider: Yuliet Bansal Primary Care Provider: Brent Posada Code Status: Do Not Attempt Resuscitation Condition at Discharge: Serious Discharge Disposition: 50 Hospice/Home DC/Xfer - DIAGNOSES Admission Diagnoses: Acute respiratory failure with hypoxia COPD exacerbation COVID-19 Pulmonary emboli BPH Continuous dependence on cigarette smoking Hypertension Glucose intolerance AAA Glaucoma Difficult intravenous access Discharge Diagnoses with Status of Each Condition: Acute respiratory failure with hypoxia: Acute on chronic. Patient made comfort care and going home on hospice. COPD exacerbation: Acute on chronic. Patient made comfort care and going home on hospice. COVID-19: Acute. Patient completed treatment. However still requiring high oxygen supply. Made comfort care. Home on hospice today. Pulmonary emboli: Eliquis held due to thrombocytopenia. BPH: On hospice Continuous dependence on cigarette smoking: On hospice Hypertension: On hospice Glucose intolerance: On hospice AAA: On hospice Glaucoma: On hospice - HPI History of Present Illness: Per HPI: This ginger gentleman was just admitted September 19 with difficulty breathing. He already has chronic COPD and and was not on baseline oxygen. With that admission, he went from being ambulatory, albeit slowly, to not being able to w alk across the living room without significant dyspnea on exertion. Upon arrival to his home, EMS found his O2 sats to be 70s on room air. Brought to the ER and he was tachypneic, tachycardic, had a fever 38.2, and white cell count was 15.2. Chest x-ray showed increasing opacity in the left lung. He was felt to be septic and placed on Rocephin and azithromycin. In addition he was treated with Solu-Medrol, duo nebs, and counseled to stop smoking. Because he had edema of the lower extremities, an echo was done to make sure his shortness of breath and hypoxia were not due to congestive heart failure. Echocardiogram done February 2021 was reviewed and had an ejection fraction of 50 to 55% with an elevated RVSP of 58 mmHg. This was compared to a August 2018 echocardiogram that had an ejection fraction of 55 to 60%. Grade 1 diastolic dysfunction. Right ventricular systolic function normal. And RVSP of 34 mmHg. He eventually improved enough on IV steroids, DuoNeb, budesonide and Perforomist and was sent home with supplemental oxygen at discharge. He was identified as having a abdominal aortic aneurysm. That was a known problem and it is 5.9 x 6.2 cm. He has already seen a vascular surgeon and has opted for no intervention. By discharge his leg edema had improved tremendously with Lasix 20 mg IV daily. 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 At discharge, he was 86% saturation on room air. At rest. He needed 3 L to get him up to 90% at rest. When walking he needed to get up to 5 L. He has been tired since going home. Short of breath but felt like he was "the same". Never quite recovering from his last discharge. Spends a lot of time in bed or chair being said entry. Enough that the skin of his buttock was starting to get more tender and red. he thinks it is breaking down, he's not sure since he can't see it. He was seen by his primary care provider September 26. They documented a tapering course of prednisone that was completed. Completed a course of cefuroxime. He was using Dulera but did not like using the Spiriva. With that exam his lungs were clear bilaterally but had a moderate reduction of air exchange in all lung sanchez. No accessory use of muscles. Regular rate and rhythm. Trace pedal edema and bilateral lower extremity dermatitis to the mid calves. His Dulera inhaler was increased and they are going to gently recommend that he increase his Spiriva use. He called his primary care provider office on October 21. He seemed to be getting worse. They offered him several options for a visit but the daughter wanted a test to see what he needed for oxygen and they advised him of how to get to the emergency room. He told the ER MD that about 5 days ago he started having increased shortness of breath on top of his chronic shortness of breath. He started increasing the use of his inhalers and they were not helping him. He started feeling like he was "suffocating to " and couldn't lay flat. Cough was worse and phlegm is still copious and no change in color. He denied fever, chills, chest pain, pleuritic pain, back pain, jaw pain. No hemoptysis. He does feel like he has a runny nose and a mild sore throat but nothing severe. His appetite has been off ever since he was in the hospital last month; it really has not improved. There is been no abdominal pain, no diarrhea. He will his legs have been with edema again. He thinks maybe the right foot and right calf are little bit bigger than the left he can tell. But there is been no pain in his legs. He was evaluated by the ER physician and temperature was 35.5. Heart rate 108. Blood pressure 119/68. 88% on room air. He appeared comfortable in that there is no pursed lip breathing and he was able to speak in sentences. But is respiratory rate was 24 and every time he tried to lay him down the gurney he was started to feel panicky and more short of breath with respiratory rate i ncreasing to 28. As such they put him on a nonrebreather, and then BiPAP. The patient stated that BiPAP made him feel so much better. FiO2 was only 35% to bring up his O2 sats. Chest x-ray had cardiomegaly with interstitial findings and alveolar pulmonary edema. Superimposed infection could not be excluded. He had groundglass opacities. D-dimer was elevated so a CT angiogram was done. He had multiple pulmonary artery filling defects present within the numerous bilateral segmental and subsegmental pulmonary artery branches. No thrombus within the main right or the left pulmonary arteries or in the main pulmonary trunk. Patchy bilateral groundglass and nearly consolidating airspace o pacities. Lobular septal thickening throughout both lungs. Emphysematous changes. Cardiomegaly was present but no pericardial effusion. Flattening of the interventricular septum. He was Covid positive. - HOSPITAL COURSE Hospital Course: Patient was admitted on 10/22/21 with shortness of breath and a cough. Work-up indicated patient was positive for COVID-19 and also had exacerbation of COPD. He decompensated and required BiPAP so he was transferred to the ICU. Treatment included Rocephin, Azithromycin, remdesivir, Decadron, Perforomist, budesonide, albuterol and DuoNeb. Patient was switched from BiPAP to high flow nasal cannula after 6 days of hospital stay. However the patient's oxygen requirement remained high. On high flow nasal cannula at 40 L/min FiO2 80% his oxygen saturation was barely between 90 and 92%. He requested to go on hospice. Orders for comfort care were placed on 10/29/21. Patient will be admitted by the hospice team on 10/30/2021 at 4 PM upon arrival at his residence. - ALLERGIES Allergies/Adverse Reactions: Allergies Allergy/AdvReac Type Severity Reaction Status Date / Time merbromin Allergy Rash Verified 10/22/21 18:54 [From Mercurochrome] Penicillins Allergy Unknown Verified 10/22/21 05:56 shellfish derived Allergy Unknown Verified 10/22/21 05:56 clopidogrel [From Plavix] AdvReac Cramps Verified 10/22/21 18:55 - MEDICATIONS Home Medications: Ambulatory Orders Medication Instructions Recorded Confirmed Albuterol 2.5 mg INH Q4H PRN 12/28/20 10/22/21 Meloxicam [Mobic] 15 mg PO DAILY 12/28/20 10/22/21 Mometasone/Formoterol [Dulera 100 2 puffs IH BID 12/28/20 10/22/21 Mcg-5 Mcg Inhaler] Sennosides/Docusate Sodium [Stool 250 mg PO BID 12/28/20 10/22/21 Softener-Laxative Tablet] Tiotropium [place] [Spiriva] 1 cap PO DAILY 12/28/20 10/22/21 Furosemide [Lasix] 20 mg PO DAILY #30 tablet 09/24/21 10/22/21 LORazepam [Ativan] 1 mg PO ONCE #20 tablet 10/29/21 Morphine Ir [Ms Ir] 15 mg PO Q6H #20 tablet 10/29/21 Nystatin [Nystop] 1 applic TOP BID 5 Days #15 gm 10/30/21 dexAMETHasone [Decadron] 4 mg PO ONCE #7 tablet 10/30/21 - PHYSICAL EXAM AT DISCHARGE General Appearance: positive: Severe distress, Anxious Eyes Bilateral: positive: PERRL, EOMI ENT: positive: No signs of dehydration Neck: positive: No JVD, Trachea midline Respiratory: positive: Wheezes, Other (Dyspnea, tachypnea, Coarse breath sounds.) Cardiovascular: positive: Regular rate & rhythm Abdomen: positive: Non-tender, No organomegaly, Nml bowel sounds, No distention. negative: Guarding, Rebound Back: positive: Nml inspection Skin: positive: No rash, Warm, Other (Mild bruising in the extremities) Extremities: positive: Non-tender, Full ROM, No pedal edema Neurologic/Psychiatric: positive: Oriented x3, Mood/affect nml - LABS Result Diagrams: 10/28/21 04:16 10/29/21 04:40 - TIME SPENT Time Spent in Discharge (Minutes): 25
--- NOTE | 2021-10-30 08:09 | Discharge Plan ---
Discharge Plan Problem Reviewed?: Yes Disposition: 50 Hospice/Home DC/Xfer Condition: Serious Prescriptions: LORazepam [Ativan] 1 mg PO ONCE #20 tablet dexAMETHasone [Decadron] 4 mg PO ONCE #7 tablet Morphine Ir [Ms Ir] 15 mg PO Q6H #20 tablet Nystatin [Nystop] 1 applic TOP BID 5 Days #15 gm Diet: Regular Activity Restrictions: Activity as Tolerated Health Concerns: Patient was admitted on 10/22/21 with shortness of breath and a cough. Work-up indicated patient was positive for COVID-19 and also had exacerbation of COPD. He decompensated and required BiPAP so he was transferred to the ICU. Treatment included Rocephin, Azithromycin, remdesivir, Decadron, Perforomist, budesonide, albuterol and DuoNeb. Patient was switched from BiPAP to high flow nasal cannula after 6 days of hospital stay. However the patient's oxygen requirement remained high. On high flow nasal cannula at 40 L/min FiO2 80% his oxygen saturation was barely between 90 and 92%. He requested to go on hospice. Orders for comfort care were placed on 10/29/21. Patient will be admitted by the hospitalist team on 10/30/2021 at 4 PM upon arrival at his residence. No Smoking: If you smoke, Please STOP! Call for help. Follow-up with: Brent Posada MD [Primary Care Provider] -
[2021-10-30] MEDS: SODIUM CHLORIDE FLUSH 0.9% 10 ML SYRINGE IVP SCH (08:30)
[2021-10-30] MEDS: NICOTINE 7 MG PATCH TOP SCH (08:30)
[2021-10-30] MEDS: SENNA 8.6 MG TABLET PO SCH (08:30)
[2021-10-30] MEDS: FLUCONAZOLE 100 MG TABLET PO SCH (08:30)
[2021-10-30] MEDS: DOCUSATE SODIUM 250 MG CAPSULE PO SCH (08:30)
[2021-10-30] MEDS: polyethylene glycoL 3350 17 GM PACKET PO SCH (08:30)
[2021-10-30] MEDS: CHLORHEXIDINE GLUCONATE 15 ML UDC PO SCH (08:35)
[2021-10-30 14:12] VITALS: BP 124/63
== END 2021-10-30 15:20 | disposition hospice, home (50) | DRG 177 ==
LOC: EDUNIT# → ED 05:03 → SUPCPDRO 05:03 → ICU 09:30 → UNDOADMIN 09:30 → ICU 10-28 14:34
PROVIDERS: ADMIT Specialist; ATTEND Internal Medicine
PROC: XW033E5 Introduction of Remdesivir Anti-infective into Peripheral Vein, Percutaneous Approach, New Technology Group 5 (ICD-10-PCS; 2021-10-22)
PROC: 02HV33Z Insertion of Infusion Device into Superior Vena Cava, Percutaneous Approach (ICD-10-PCS; principal; 2021-10-23)
PROC: 3E0333Z Introduction of Anti-inflammatory into Peripheral Vein, Percutaneous Approach (ICD-10-PCS; 2021-10-23)
DX: A41.9 Sepsis, unspecified organism (principal); U07.1 COVID-19; J12.82 Pneumonia due to coronavirus disease 2019; I26.99 Other pulmonary embolism without acute cor pulmonale; J43.9 Emphysema, unspecified; Z99.81 Dependence on supplemental oxygen; F17.200 Nicotine dependence, unspecified, uncomplicated; R25.1 Tremor, unspecified; J96.21 Acute and chronic respiratory failure with hypoxia; J90 Pleural effusion, not elsewhere classified; N40.0 Benign prostatic hyperplasia without lower urinary tract symptoms; I26.94 Multiple subsegmental thrombotic pulmonary emboli without acute cor pulmonale; E43 Unspecified severe protein-calorie malnutrition; B37.0 Candidal stomatitis; J43.2 Centrilobular emphysema; Z66 Do not resuscitate; Z51.5 Encounter for palliative care; F17.210 Nicotine dependence, cigarettes, uncomplicated; I10 Essential (primary) hypertension; E74.39 Other disorders of intestinal carbohydrate absorption; I71.4 Abdominal aortic aneurysm, without rupture; H40.9 Unspecified glaucoma; L89.159 Pressure ulcer of sacral region, unspecified stage; N40.1 Benign prostatic hyperplasia with lower urinary tract symptoms; R33.8 Other retention of urine; K59.09 Other constipation; I73.9 Peripheral vascular disease, unspecified; R60.0 Localized edema; R26.0 Ataxic gait; M10.9 Gout, unspecified; G89.29 Other chronic pain; M54.9 Dorsalgia, unspecified; N39.498 Other specified urinary incontinence; R39.11 Hesitancy of micturition; R39.15 Urgency of urination; R35.0 Frequency of micturition; R35.1 Nocturia; M16.0 Bilateral primary osteoarthritis of hip; R53.1 Weakness; Z86.73 Personal history of transient ischemic attack (TIA), and cerebral infarction without residual deficits
CPT/HCPCS: 36415; 36600; 71045; 71275; 80048; 80053; 82306; 82330; 82803; 83605; 83690; 83735; 83880; 84100; 84132; 84484; 85025; 85379; 87040; 87150; 87631; 93005; 94640; 94660; 96365; 96366; 96367; 96372; 96375; 99223; 99233; 99285; A9270; C1751; J1650; J3370; J7040; J7120; J8499; Q9967; 0202U; 86140

== ENCOUNTER 2021-10-30 15:24 | Outpatient (CLI) | payer MEDICARE, OTHER | END 2021-10-30 15:25 | disposition hospice, home (50) | LOC: EMS 15:24 | PROVIDERS: ATTEND Specialist | DX: Z51.5 Encounter for palliative care (principal); J44.9 Chronic obstructive pulmonary disease, unspecified; Z99.81 Dependence on supplemental oxygen | CPT/HCPCS: A0425; A0428 ==